=== PATIENT | female | born 1975 | race African-American/Black ===

== ENCOUNTER → 2017-01-25 | Outpatient (CLI) | payer MEDICAID ==
[2017-01-11 00:37] VITALS: BP 142/90
[2017-01-25 15:25] LABS: BASOPHILS % (AUTO) 0.9 % (0.2-1.0); EOSINOPHILS # (AUTO) 0.2 x10^3/uL (0.0-0.2); HEMATOCRIT 25.9 % (36.0-47.0); HEMOGLOBIN 7.9 g/dL (12.0-16.0); MEAN CORPUSCULAR HGB CONC 30.5 g/dL (33.0-35.0); MONOCYTES # (AUTO) 0.3 x10^3/uL (0.3-0.8); RED CELL DISTRIBUTION WIDTH 21.9 % (11.6-16.5)
[2017-01-25 15:29] LABS: BASOPHILS # (AUTO) 0.1 X10^3/uL (0.0-0.1); EOSINOPHILS % (AUTO) 3.1 % (0.9-2.9); MEAN CORPUSCULAR HEMOGLOBIN 21.5 pg (27.0-34.0); MEAN CORPUSCULAR VOLUME 70.4 fL (80.0-100.0); MEAN PLATELET VOLUME 7.9 fL (7.4-11.0); MONOCYTES % (AUTO) 6.1 % (0.0-13.0); NEUTROPHILS % (AUTO) 53.9 % (42.0-75.0); PLATELET COUNT 444 X10^3/uL (150.0-450.0); RED BLOOD COUNT 3.69 X10^6/uL (3.5-5.4); WHITE BLOOD COUNT 5.6 X10^3/uL (3.6-10.0)
--- NOTE | 2017-01-25 16:02 | RAD ---
HISTORY: Chronic bilateral hip pain Study: Bilateral hip radiographs Comparison: 03/03/2016 Findings: Normal alignment. No acute fracture or dislocation. The soft tissues are unremarkable. Multiple reno gical clips are again seen in the right pelvis. IMPRESSION: 1. Negative hip radiographs. Reported By:
[2017-01-25 16:22] LABS: HYPOCHROMASIA 2+; PLATELET MORPHOLOGY COMMENT NORMAL (NORMAL)
[2017-01-25 16:23] LABS: ANISOCYTOSIS 1+; MICROCYTOSIS 2+
--- NOTE | 2017-01-25 16:23 | RAD ---
HISTORY: Chronic back pain Study: Three views lumbar spine Comparison: None Findings: There is minimal levoscoliosis. Alignment is otherwise normal. Vertebral body heights are preserved . The disk spaces appear normal.No evidence for acute fracture or subluxation. IMPRESSION: 1. Minimal levoscoliosis, otherwise negative lumbar radiographs. Reported By:
[2017-01-25 17:10] LABS: ALANINE AMINOTRANSFERASE 18 Units/L (12-78); ALBUMIN 3.5 g/dL (3.4-5.0); ALKALINE PHOSPHATASE 79 Units/L (46-116); ASPARTATE AMINO TRANSFERASE 18 Units/L (15-37); BLOOD UREA NITROGEN 8 mg/dL (7-18); CALCIUM 8.6 mg/dL (8.5-10.1); CARBON DIOXIDE 24.8 mmol/L (21-32); CHLORIDE 106 mmol/L (98-107); CREATININE 0.54 mg/dL (0.55-1.02); GLUCOSE 92 mg/dL (65-99); SODIUM 143 mmol/L (136-145); T4 (THYROXINE) 4.9 ug/dL (4.7-13.3); TOTAL PROTEIN 7.9 g/dL (6.4-8.2); TSH (3RD GENERATION) 1.009 uIU/mL (0.358-3.74); eGFR BLACK RACES > 60 (>60); eGFR NON BLACK RACES > 60 (>60)
== END ==
LOC: LAB 14:46
PROVIDERS: ATTEND Internal Medicine
DX: M54.5 Low back pain (principal); M25.551 Pain in right hip; M25.552 Pain in left hip
CPT/HCPCS: 36415; 72100; 73521; 80053; 84436; 84443; 85025

== ENCOUNTER 2017-03-23 18:35 | Emergency (ER) | payer OTHER, MEDICAID ==
[2017-03-23 18:42] VITALS: BP 111/79; BMI 20.1
== END 2017-03-23 20:00 | disposition left against medical advice (07) ==
LOC: ER 18:49
DX: R10.84 Generalized abdominal pain (principal)
CPT/HCPCS: 99281

== ENCOUNTER 2017-04-25 23:26 | Inpatient (IN) | payer OTHER, MEDICAID ==
--- NOTE | 2017-04-26 00:10 | DR.GENAD ---
HPI - PCP Primary Care Physician: Jemma - Complaint/Symptoms Chief Complaint:: "Dr Vegas had me to get blood drawed. The lab told Dr Vegas how low it was and he told me to come to the ER now. Also, my back just started bothering me about an hour ago." - Source History Provided: Patient - Mode of Arrival Mode of Arrival: Ambulatory - Timing Onset of Chief Complaint: 04/25/17 PMH - PMH Past Medical History: Yes Past Medical History: Hypertension Past Medical History Comment: Pancriatitis Past Surgical History: Yes Surgical History: Hysterectomy - Family History History of Family Medical Conditions: Yes Family Medical History: Cancer, Hypertension - Social History Does patient currently use any type of tobacco product: Yes Have you used tobacco products in the last 12 months: Yes Type of Tobacco Use: Cigarettes Does any household member use tobacco: Yes Alcohol Use: None Do you use any recreational Drugs:: No Lives With: Family Lives Where: Home - infectious screening In the last 2 months have you had wt loss of >10#?: NO Have you had fever, night sweats or hemotysis?: No Have you traveled outside the country in the last 6 months?: No Isolation: Standard ROS - Review of Systems Constitutional: No Symptoms Reported Eyes: No Symptoms Reported ENTM: No Symptoms Reported Respiratoy: No Symptoms Reported Cardiovascular: No Symptoms Reported Gastrointestinal/Abdominal: No Symptoms Reported Genitourinary: No Symptoms Reported Neurological: No Symptoms Reported Musculoskeletal: Back Pain Integumentary: No Symptoms Reported Hematologic/Lymphatic: No Symptoms Reported Endocrine: No Symptoms Reported Psychiatric: No Symptoms Reported All Other Systems: Reviewed and Negative PE - Vital Signs Vitals: Temperature 98.4 F Pulse Rate 106 Respiratory Rate 20 Blood Pressure [Left Arm] 138/88 Blood Pressure [Right Arm] 132/79 Blood Pressure 142/82 O2 Sat by Pulse Oximetry 100 - General Limitations: No Limitations General Appearance: Alert, In No Apparent Distress - Head Head Exam: Normal Inspection, Atraumatic - ENT ENT Exam: Normal Exam, Normal Oropharynx External Ear Exam: Normal External Inspection TM/Canal Exam: Bilateral Normal Nose Exam: Normal Nose Exam Mouth Exam: Normal Inspection Throat Exam: Normal Inspection - Neck Neck Exam: Normal Inspection - Chest Chest Inspection: Normal Inspection - Respiratory Respiratory Exam: Normal Lung Sounds Bilat Respiratory Exam: Bilateral Clear to Auscultation - Cardiovascular Cardiovascular Exam: Regular Rate, Normal Rhythm - Abdominal Exam Abdominal Exam: Normal Inspection, Normal Bowel Sounds Abdominal Tenderness: negative: RUQ, RLQ, LUQ, LLQ, Epigastrium, Suprapubic, Diffuse, Mild, Moderate, Severe, Other - Extremities Extremities Exam: Normal Inspection, Full ROM - Back Back Exam: Normal Inspection, Tenderness (mid low back) - Neurologic Neurological Exam: Alert, Oriented X3, CN II-XII Intact - Psychiatric Psychiatric Exam: Normal Affect, Normal Mood - Skin Skin Exam: Warm, Dry Course - Reevaluation 1st: - Consultation Called: 00:09 (Dr Vegas advised to admit for transfusion) ROR - Labs Reviewed Laboratory Results Reviewed?: Yes (H/H 5.05/23) - XRAY XRAY Interpreted by: Radiologist - Diagnosis Discharge Problem: Anemia Qualifiers: Anemia type: unspecified type Qualified Code(s): D64.9 - Anemia, unspecified - Discharge Plan Condition: Stable - Follow ups/Referrals Follow ups/Referrals: Moris VEGAS [Primary Care Provider] - 3 days - Instructions
[2017-04-26] MEDS ORDERED: NS 500 ML IV 500 ML IV ONE (00:51)
[2017-04-26] MEDS ORDERED: TYLENOL 325 MG TAB PO PRN (00:51)
[2017-04-26] MEDS ORDERED: TYLENOL SUPP 650 MG PR PRN (00:51)
[2017-04-26] MEDS ORDERED: BENADRYL INJ 50 MG VIAL IVP PRN (00:51)
[2017-04-26] MEDS ORDERED: NS 250 ML IV 250 ML IV ONE (01:50)
[2017-04-26] MEDS: NORCO 5/325 MG TAB PO PRN ×3 (01:56→20:58)
[2017-04-26 03:01] VITALS: BMI 19.6
[2017-04-26] MEDS ORDERED: NS 1000 ML 1,000 ML ONE (04:58)
[2017-04-26] MEDS: NS 1000 ML 1,000 ML IV SCH ×4 (05:04→21:00)
[2017-04-26] MEDS ORDERED: MILK OF MAGNESIA PO PRN (09:43)
[2017-04-26 10:44] LABS: ALANINE AMINOTRANSFERASE 20 Units/L (12-78); ALBUMIN 3.1 g/dL (3.4-5.0); ALKALINE PHOSPHATASE 75 Units/L (46-116); ASPARTATE AMINO TRANSFERASE 14 Units/L (15-37); BLOOD UREA NITROGEN 8 mg/dL (7-18); CALCIUM 7.8 mg/dL (8.5-10.1); CHLORIDE 111 mmol/L (98-107); COR CA(FOR HYPOALB) 8.5 mg/dL (8.5-10.1); CREATININE 0.62 mg/dL (0.55-1.02); GLUCOSE 109 mg/dL (65-99); SODIUM 143 mmol/L (136-145); TOTAL PROTEIN 6.9 g/dL (6.4-8.2); eGFR BLACK RACES > 60 (>60); eGFR NON BLACK RACES > 60 (>60)
[2017-04-26 11:34] LABS: BASOPHILS # (AUTO) 0.1 X10^3/uL (0.0-0.1); EOSINOPHILS # (AUTO) 0.3 x10^3/uL (0.0-0.2); HEMATOCRIT 24.9 % (36.0-47.0); LYMPHOCYTES # (AUTO) 1.5 X10^3/uL (1.3-2.9); LYMPHOCYTES % (AUTO) 32.6 % (21.0-51.0); MEAN CORPUSCULAR HEMOGLOBIN 24.7 pg (27.0-34.0); MEAN CORPUSCULAR HGB CONC 32.2 g/dL (33.0-35.0); MEAN CORPUSCULAR VOLUME 76.8 fL (80.0-100.0); MEAN PLATELET VOLUME 8.1 fL (7.4-11.0); MONOCYTES # (AUTO) 0.3 x10^3/uL (0.3-0.8); MONOCYTES % (AUTO) 6.8 % (0.0-13.0); NEUTROPHILS # (AUTO) 2.5 x10^3/uL (2.2-4.8); NEUTROPHILS % (AUTO) 52.6 % (42.0-75.0); PLATELET COUNT 352 X10^3/uL (150.0-450.0); RED BLOOD COUNT 3.25 X10^6/uL (3.5-5.4); RED CELL DISTRIBUTION WIDTH 29.6 % (11.6-16.5); WHITE BLOOD COUNT 4.7 X10^3/uL (3.6-10.0)
[2017-04-26 12:24] LABS: BAND NEUTROPHILS % 5 % (0-10); PLATELET MORPHOLOGY COMMENT NORMAL (NORMAL)
[2017-04-26 12:25] LABS: ANISOCYTOSIS 3+; HYPOCHROMASIA 1+; MICROCYTOSIS 1+; POIKILOCYTOSIS 2+; POLYCHROMASIA SLIGHT
[2017-04-26] MEDS ORDERED: XANAX PO PRN (20:55)
[2017-04-26] MEDS ORDERED: COLACE CAP 100 MG PO SCH (21:00)
[2017-04-27 08:03] VITALS: BP 151/85
[2017-04-27] MEDS: NORCO 5/325 MG TAB PO PRN (10:57)
[2017-04-27] MEDS: NS 1000 ML 1,000 ML IV SCH (12:13)
== END 2017-04-27 11:11 | disposition home or self-care (01) | DRG 812 ==
LOC: ER 23:26 → ICU 04-26 00:45
PROVIDERS: ADMIT Internal Medicine; ATTEND Internal Medicine
PROC: 30233N1 Transfusion of Nonautologous Red Blood Cells into Peripheral Vein, Percutaneous Approach (ICD-10-PCS; principal; 2017-04-26)
PROC: 30233N1 Transfusion of Nonautologous Red Blood Cells into Peripheral Vein, Percutaneous Approach (ICD-10-PCS; 2017-04-26)
DX: D64.89 Other specified anemias (principal); I10 Essential (primary) hypertension; Z87.19 Personal history of other diseases of the digestive system
CPT/HCPCS: 36415; 71020; 80053; 82607; 82728; 82746; 83540; 84436; 84443; 84466; 85025; 86850; 86900; 86901; 86922; 96365; 99283; 99284; P9016; J1200

== ENCOUNTER → 2017-04-25 | Outpatient (CLI) | payer OTHER, MEDICAID ==
[2017-04-25 17:32] LABS: BASOPHILS # (AUTO) 0.1 X10^3/uL (0.0-0.1); BASOPHILS % (AUTO) 1.4 % (0.2-1.0); EOSINOPHILS # (AUTO) 0.1 x10^3/uL (0.0-0.2); EOSINOPHILS % (AUTO) 3.5 % (0.9-2.9); LYMPHOCYTES % (AUTO) 52.2 % (21.0-51.0); MEAN CORPUSCULAR HEMOGLOBIN 20.7 pg (27.0-34.0); MEAN CORPUSCULAR HGB CONC 29.8 g/dL (33.0-35.0); MEAN CORPUSCULAR VOLUME 69.6 fL (80.0-100.0); MEAN PLATELET VOLUME 7.4 fL (7.4-11.0); MONOCYTES # (AUTO) 0.3 x10^3/uL (0.3-0.8); MONOCYTES % (AUTO) 7.7 % (0.0-13.0); NEUTROPHILS # (AUTO) 1.4 x10^3/uL (2.2-4.8); NEUTROPHILS % (AUTO) 35.2 % (42.0-75.0); PLATELET COUNT 440 X10^3/uL (150.0-450.0); RED BLOOD COUNT 2.76 X10^6/uL (3.5-5.4); RED CELL DISTRIBUTION WIDTH 26.3 % (11.6-16.5); WHITE BLOOD COUNT 3.9 X10^3/uL (3.6-10.0)
[2017-04-25 17:39] LABS: HEMATOCRIT 19.2 % (36.0-47.0); HEMOGLOBIN 5.7 g/dL (12.0-16.0)
[2017-04-25 17:54] LABS: ALANINE AMINOTRANSFERASE 20 Units/L (12-78); ALBUMIN 3.5 g/dL (3.4-5.0); ALKALINE PHOSPHATASE 83 Units/L (46-116); ASPARTATE AMINO TRANSFERASE 15 Units/L (15-37); BLOOD UREA NITROGEN 10 mg/dL (7-18); CARBON DIOXIDE 24.6 mmol/L (21-32); CHLORIDE 109 mmol/L (98-107); CREATININE 0.62 mg/dL (0.55-1.02); GLUCOSE 110 mg/dL (65-99); SODIUM 144 mmol/L (136-145); T4 (THYROXINE) 4.2 ug/dL (4.7-13.3); TOTAL PROTEIN 7.6 g/dL (6.4-8.2); TSH (3RD GENERATION) 0.831 uIU/mL (0.358-3.74); eGFR BLACK RACES > 60 (>60); eGFR NON BLACK RACES > 60 (>60)
[2017-04-25 18:15] LABS: ANISOCYTOSIS 3+; HYPOCHROMASIA 2+; PLATELET MORPHOLOGY COMMENT NORMAL (NORMAL)
[2017-04-25 18:16] LABS: MICROCYTOSIS 1+; TEAR DROP CELLS PRESENT
[2017-04-25 18:17] LABS: IRON 14 ug/dL (50-175); TRANSFERRIN 334 mg/dL (202-364)
--- NOTE | 2017-04-26 07:15 | RAD ---
HISTORY: Anemia, hypertension Study: Chest two-view Comparison: December 10, 2015 Findings: The trachea is midline. The cardiac silhouette is unremarkable. The lungs are clear without focal infiltrate or effusion. The bony thorax is unremarkable. IMPRESSION: 1. No acute cardiopulmonary disease. Reported By:
== END | disposition home or self-care (01) | DRG 812 ==
LOC: LAB 17:12
PROVIDERS: ATTEND Internal Medicine
DX: D64.9 Anemia, unspecified (principal); I10 Essential (primary) hypertension; E04.8 Other specified nontoxic goiter
CPT/HCPCS: 36415; 71020; 80053; 82607; 82728; 82746; 83540; 84436; 84443; 84466; 85025

== ENCOUNTER 2017-08-29 18:34 | Inpatient (IN) | payer OTHER, MEDICAID ==
[2017-08-29 18:38] VITALS: BMI 19.2
--- NOTE | 2017-08-29 19:35 | DR.GENAD ---
HPI - PCP Primary Care Physician: yoli - Complaint/Symptoms Chief Complaint Doctors Comments: Patient presented with complain of left knee for two days. She also states that her pancreatitis is acting up. She denies fever or vomiting. Chief Complaint:: "left knee hurting and my back since yesterday" - Source History Provided: Patient - Mode of Arrival Mode of Arrival: Ambulatory - Timing Onset of Chief Complaint: 08/28/17 PMH - PMH Past Medical History: Yes Past Medical History: Hypertension Past Surgical History: Yes Surgical History: Hysterectomy - Family History History of Family Medical Conditions: Yes Family Medical History: Diabetes Mellitus, Cancer, Hypertension - Social History Does patient currently use any type of tobacco product: Yes Have you used tobacco products in the last 12 months: Yes Type of Tobacco Use: Cigarettes How many years tobacco product used: 5 Does any household member use tobacco: No Alcohol Use: None Do you use any recreational Drugs:: No Lives With: Family Lives Where: Home - infectious screening In the last 2 months have you had wt loss of >10#?: NO Have you had fever, night sweats or hemotysis?: No Have you traveled outside the country in the last 6 months?: No Isolation: Standard ROS - Review of Systems Eyes: No Symptoms Reported ENTM: No Symptoms Reported Respiratoy: No Symptoms Reported Cardiovascular: No Symptoms Reported Gastrointestinal/Abdominal: No Symptoms Reported Genitourinary: No Symptoms Reported Neurological: No Symptoms Reported Musculoskeletal: Leg (proximal tibia with area of cellulitis tender centrally.) PE - Vital Signs Vitals: Temperature 98.5 F Pulse Rate [Left Brachial] 92 Pulse Rate 108 Respiratory Rate 16 Blood Pressure [Left Arm] 138/88 Blood Pressure [Right Arm] 122/76 Blood Pressure 130/77 O2 Sat by Pulse Oximetry 99 Course - Consultation Called: 20:45 (Dr Damian agreed to admit for transfusion) ROR - Labs Reviewed Result Diagrams: 08/29/17 19:52 08/29/17 19:52 Laboratory: WBC 6.2 X10^3/uL (3.6-10.0) 08/29/17 19:52 RBC 2.08 X10^6/uL (3.5-5.4) L 08/29/17 19:52 Hgb 4.3 g/dL (12.0-16.0) L* 08/29/17 19:52 Hct 14.1 % (36.0-47.0) L* 08/29/17 19:52 MCV 67.8 fL (80.0-100.0) L 08/29/17 19:52 MCH 20.9 pg (27.0-34.0) L 08/29/17 19:52 MCHC 30.8 g/dL (33.0-35.0) L 08/29/17 19:52 RDW 30.2 % (11.6-16.5) H 08/29/17 19:52 Plt Count 24 X10^3/uL (150.0-450.0) L 08/29/17 19:52 Plt Count Comment Decreased (ADEQUATE) A 08/29/17 19:52 MPV 6.5 fL (7.4-11.0) L 08/29/17 19:52 Neut % 55.0 % (42.0-75.0) 08/29/17 19:52 Lymph % 35.7 % (21.0-51.0) 08/29/17 19:52 [place] % 5.8 % (0.0-13.0) 08/29/17 19:52 Eos % 1.3 % (0.9-2.9) 08/29/17 19:52 Baso % 2.2 % (0.2-1.0) H 08/29/17 19:52 Neut # 3.4 x10^3/uL (2.2-4.8) 08/29/17 19:52 Lymph # 2.2 X10^3/uL (1.3-2.9) 08/29/17 19:52 [place] # 0.4 x10^3/uL (0.3-0.8) 08/29/17 19:52 Eos # 0.1 x10^3/uL (0.0-0.2) 08/29/17 19:52 Baso # 0.1 X10^3/uL (0.0-0.1) 08/29/17 19:52 Absolute Nucleated RBC 0.2 /100WBC 08/29/17 19:52 Total Counted 100 08/29/17 19:52 Neutrophils % (Manual) 75 % (39-76) 08/29/17 19:52 Band Neutrophils % 0 % (0-10) 08/29/17 19:52 Lymphocytes % (Manual) 19 % (13-43) 08/29/17 19:52 Monocytes % (Manual) 4 % (4-9) 08/29/17 19:52 Eosinophils % (Manual) 2 % (0-6) 08/29/17 19:52 Plt Morphology Comment Normal (NORMAL) 08/29/17 19:52 RBC Morphology Abnormal (NORMAL) A 08/29/17 19:52 Hypochromasia 3+ A 08/29/17 19:52 Poikilocytosis 1+ A 08/29/17 19:52 Anisocytosis 2+ A 08/29/17 19:52 Microcytosis 2+ A 08/29/17 19:52 Target Cells Noted 08/29/17 19:52 Tear Drop Cells Noted 08/29/17 19:52 Sodium 139 mmol/L (136-145) 08/29/17 19:52 Corrected Sodium TNP 08/29/17 19:52 Potassium 3.9 mmol/L (3.5-5.1) 08/29/17 19:52 Chloride 107 mmol/L (98-107) 08/29/17 19:52 Carbon Dioxide 23.8 mmol/L (21-32) 08/29/17 19:52 BUN 10 mg/dL (7-18) 08/29/17 19:52 Creatinine 0.68 mg/dL (0.55-1.02) 08/29/17 19:52 Est GFR (MDRD) Af Amer > 60 (>60) 08/29/17 19:52 Est GFR (MDRD) Non-Af > 60 (>60) 08/29/17 19:52 Glucose 102 mg/dL (65-99) H 08/29/17 19:52 Calcium 8.5 mg/dL (8.5-10.1) 08/29/17 19:52 Corrected Calcium 9.2 mg/dL (8.5-10.1) 08/29/17 19:52 Total Bilirubin 0.10 mg/dL (0.2-1.0) L 08/29/17 19:52 AST 17 Units/L (15-37) 08/29/17 19:52 ALT 17 Units/L (12-78) 08/29/17 19:52 Alkaline Phosphatase 111 Units/L (46-116) 08/29/17 19:52 C-Reactive Protein 15.30 mg/L (0-3.0) H 08/29/17 19:52 Total Protein 7.5 g/dL (6.4-8.2) 08/29/17 19:52 Albumin 3.1 g/dL (3.4-5.0) L 08/29/17 19:52 Globulin 4.4 g/dL (2.5-4.5) 08/29/17 19:52 Albumin/Globulin Ratio 0.7 Ratio (1.1-2.1) L 08/29/17 19:52 Amylase 100 Units/L (25-115) 08/29/17 19:52 Lipase 278 Units/L (73-393) 08/29/17 19:52 Specimen Type Clean catch urine 08/29/17 19:52 Urine Color Yellow (YELLOW) 08/29/17 19:52 Urine Appearance Clear (CLEAR) 08/29/17 19:52 Urine pH 7.0 (5.0 - 8.0) 08/29/17 19:52 Ur Specific [place] 1.005 (1.000-1.030) 08/29/17 19:52 Urine Protein Negative (NEGATIVE) 08/29/17 19:52 Urine Glucose (UA) Negative (NEGATIVE) 08/29/17 19:52 Urine Ketones Negative (NEGATIVE) 08/29/17 19:52 Urine Occult Blood Negative (NEGATIVE) 08/29/17 19:52 Urine Nitrite Negative (NEGATIVE) 08/29/17 19:52 Urine Bilirubin Negative (NEGATIVE) 08/29/17 19:52 Urine Urobilinogen Normal (NORMAL) 08/29/17 19:52 Ur Leukocyte Esterase Negative (NEGATIVE) 08/29/17 19:52 Urine RBC 0-2 /HPF (NEGATIVE) 08/29/17 19:52 Urine WBC 0-2 /HPF (NEGATIVE) 08/29/17 19:52 Ur Squamous Epith Cells Rare /HPF (NEGATIVE) 08/29/17 19:52 Urine Bacteria Trace /HPF (NEGATIVE) 08/29/17 19:52 Ur Culture Indicated? No/not indicated 08/29/17 19:52 - Diagnosis Discharge Problem: left tibia cellulitis Anemia Qualifiers: Anemia type: unspecified type Qualified Code(s): D64.9 - Anemia, unspecified - Discharge Plan Condition: Stable - Follow ups/Referrals Follow ups/Referrals: Moris VEGAS [Primary Care Provider] - 3 days - Instructions
[2017-08-29] MEDS ORDERED: NS 1000 ML 1,000 ML IV ONE (19:38)
[2017-08-29] MEDS ORDERED: NS 1000 ML 1,000 ML ONE (20:00)
[2017-08-29 20:03] LABS: BASOPHILS # (AUTO) 0.1 X10^3/uL (0.0-0.1); BASOPHILS % (AUTO) 2.2 % (0.2-1.0); BILIRUBIN,URINE NEGATIVE (NEGATIVE); BLOOD/HEMOGLOBIN,URINE NEGATIVE (NEGATIVE); EOSINOPHILS # (AUTO) 0.1 x10^3/uL (0.0-0.2); EOSINOPHILS % (AUTO) 1.3 % (0.9-2.9); GLUCOSE, URINE NEGATIVE (NEGATIVE); KETONES,URINE NEGATIVE (NEGATIVE); LEUKOCYTE ESTERASE ,URINE NEGATIVE (NEGATIVE); LYMPHOCYTES # (AUTO) 2.2 X10^3/uL (1.3-2.9); LYMPHOCYTES % (AUTO) 35.7 % (21.0-51.0); MEAN CORPUSCULAR HEMOGLOBIN 20.9 pg (27.0-34.0); MEAN CORPUSCULAR HGB CONC 30.8 g/dL (33.0-35.0); MEAN CORPUSCULAR VOLUME 67.8 fL (80.0-100.0); MEAN PLATELET VOLUME 6.5 fL (7.4-11.0); MONOCYTES # (AUTO) 0.4 x10^3/uL (0.3-0.8); MONOCYTES % (AUTO) 5.8 % (0.0-13.0); NEUTROPHILS # (AUTO) 3.4 x10^3/uL (2.2-4.8); NITRITES,URINE NEGATIVE (NEGATIVE); PLATELET COUNT 24 X10^3/uL (150.0-450.0); PROTEIN,URINE NEGATIVE (NEGATIVE); RED BLOOD COUNT 2.08 X10^6/uL (3.5-5.4); RED CELL DISTRIBUTION WIDTH 30.2 % (11.6-16.5); UROBILINOGEN,URINE NORMAL (NORMAL); WHITE BLOOD COUNT 6.2 X10^3/uL (3.6-10.0)
[2017-08-29 20:10] LABS: APPEARANCE,URINE CLEAR (CLEAR); COLOR,URINE YELLOW (YELLOW); RBC,URINE 0-2 /HPF (NEGATIVE); SQUAMOUS EPITHELIAL CELL,UR RARE /HPF (NEGATIVE)
[2017-08-29 20:11] LABS: BACTERIA,URINE TRACE /HPF (NEGATIVE)
[2017-08-29 20:15] LABS: HEMATOCRIT 14.1 % (36.0-47.0); HEMOGLOBIN 4.3 g/dL (12.0-16.0)
[2017-08-29 20:33] LABS: ALANINE AMINOTRANSFERASE 17 Units/L (12-78); ALBUMIN 3.1 g/dL (3.4-5.0); ALKALINE PHOSPHATASE 111 Units/L (46-116); AMYLASE 100 Units/L (25-115); ASPARTATE AMINO TRANSFERASE 17 Units/L (15-37); BLOOD UREA NITROGEN 10 mg/dL (7-18); CALCIUM 8.5 mg/dL (8.5-10.1); CARBON DIOXIDE 23.8 mmol/L (21-32); CHLORIDE 107 mmol/L (98-107); COR CA(FOR HYPOALB) 9.2 mg/dL (8.5-10.1); CREATININE 0.68 mg/dL (0.55-1.02); LIPASE 278 Units/L (73-393); SODIUM 139 mmol/L (136-145); TOTAL PROTEIN 7.5 g/dL (6.4-8.2); eGFR BLACK RACES > 60 (>60); eGFR NON BLACK RACES > 60 (>60)
[2017-08-29] MEDS ORDERED: PHENERGAN INJ 25 MG IV ONE (20:38)
[2017-08-29] MEDS ORDERED: DEMEROL INJ IVP ONE (20:38)
[2017-08-29] MEDS ORDERED: CLEOCIN VIAL 600 MG IV ONE (20:38)
[2017-08-29 20:39] LABS: HYPOCHROMASIA 3+; PLATELET MORPHOLOGY COMMENT NORMAL (NORMAL)
[2017-08-29 20:40] LABS: ANISOCYTOSIS 2+; MICROCYTOSIS 2+; POIKILOCYTOSIS 1+
[2017-08-29 20:43] LABS: BAND NEUTROPHILS % 0 % (0-10)
[2017-08-29] MEDS ORDERED: PHENERGAN INJ 25 MG ONE (20:43)
[2017-08-29 20:44] LABS: TARGET CELLS NOTED; TEAR DROP CELLS NOTED
[2017-08-29] MEDS ORDERED: DEMEROL INJ ONE (20:44)
[2017-08-29] MEDS ORDERED: CLEOCIN VIAL 600 MG ONE (20:44)
[2017-08-29] MEDS ORDERED: NS 100 ML IV 100 ML IV ONE (20:45)
[2017-08-29] MEDS ORDERED: NEOSPORIN OINT ONE (20:55)
[2017-08-29] MEDS ORDERED: NS 500 ML IV 500 ML IV ONE (21:25)
[2017-08-29] MEDS ORDERED: NS 250 ML IV 250 ML IV ONE (21:25)
[2017-08-29] MEDS ORDERED: ZOFRAN INJ 4 MG VIAL IVP PRN (22:04)
[2017-08-29] MEDS: NICOTINE PATCH TD SCH (23:17)
[2017-08-29] MEDS ORDERED: BENADRYL INJ 50 MG VIAL IV ONE (23:29)
[2017-08-29] MEDS ORDERED: TYLENOL 325 MG TAB PO ONE ×2 (23:30→23:32)
[2017-08-29] MEDS ORDERED: BENADRYL INJ 50 MG VIAL ONE (23:32)
[2017-08-30] MEDS ORDERED: SOLU-Medrol 125 MG VIAL IVP ONE (01:57)
[2017-08-30 02:49] LABS: BILIRUBIN,URINE NEGATIVE (NEGATIVE); BLOOD/HEMOGLOBIN,URINE NEGATIVE (NEGATIVE); GLUCOSE, URINE NEGATIVE (NEGATIVE); KETONES,URINE NEGATIVE (NEGATIVE); LEUKOCYTE ESTERASE ,URINE NEGATIVE (NEGATIVE); NITRITES,URINE NEGATIVE (NEGATIVE); PROTEIN,URINE NEGATIVE (NEGATIVE); UROBILINOGEN,URINE NORMAL (NORMAL)
[2017-08-30 03:00] LABS: APPEARANCE,URINE CLEAR (CLEAR); BACTERIA,URINE NEGATIVE /HPF (NEGATIVE); COLOR,URINE PALE YELLOW (YELLOW); RBC,URINE 0-3 /HPF (NEGATIVE); SQUAMOUS EPITHELIAL CELL,UR RARE /HPF (NEGATIVE)
[2017-08-30] MEDS: DEMEROL INJ IVP PRN ×2 (05:11→11:20)
[2017-08-30] MEDS: CLEOCIN VIAL 600 MG 150 MG in D5W 50 ML IV 50 ML IV SCH ×2 (05:14→05:48)
[2017-08-30] MEDS ORDERED: CLEOCIN 300 MG IV PREMIX 300 MG/50 ML BAG IV ONE (05:32)
[2017-08-30 06:48] LABS: HEMATOCRIT 23.6 % (36.0-47.0)
[2017-08-30 06:50] LABS: HEMOGLOBIN 7.6 g/dL (12.0-16.0)
--- NOTE | 2017-08-30 09:16 | RAD ---
HISTORY: Epigastric pain, GERD. Study: Acute abdominal series Comparison: 03/03/2016 Findings: The trachea is midline. The cardiac silhouette is unremarkable. The lungs are hyperinflated with in creased interstitial markings. In the appropriate clinical setting, findings may indicate COPD. An ac [place] process is not identified. The bony thorax is unremarkable. Flat plate and upright evaluation of the abdomen demonstrates a large amount of stool present within the right colon. No bowel obstruction or perforation is seen. There is no evidence of free intraperit sims air or fluid. Surgical clips are present in the right lower abdominal quadrant, likely from beatriz endectomy.. No pathological soft tissue mass or calcification can be observed. The bony structures are grossly intact. IMPRESSION: 1. No acute cardiopulmonary disease. There are changes of COPD present. 2. No evidence for acute abdominal pathology identified. Reported By:
[2017-08-30] MEDS ORDERED: BENADRYL CAP/TAB 25 MG PO ONE (09:21)
[2017-08-30] MEDS: NICOTINE PATCH TD SCH (09:28)
[2017-08-30] MEDS: PROTONIX INJ 40 MG VIAL IVP SCH (09:28)
[2017-08-30] MEDS: CHECK PATCH XX SCH ×2 (09:29→21:50)
[2017-08-30] MEDS: CLEOCIN 600 MG IV PREMIX 600 MG/50 ML BAG IV SCH ×3 (10:24→21:50)
[2017-08-30] MEDS ORDERED: PHENERGAN TAB 25 MG PO PRN (10:43)
[2017-08-30] MEDS ORDERED: AMBIEN PO PRN (10:43)
[2017-08-30] MEDS ORDERED: PATIENT'S HOME MEDICATION (Lisinopril [Lisinopril] 20 MG) PO SCH (10:45)
[2017-08-30] MEDS ORDERED: PATIENT'S HOME MEDICATION (Ranitidine Hcl [Zantac] 300 MG) PO SCH (10:45)
[2017-08-30] MEDS ORDERED: ZESTRIL TAB 20 MG ONE (11:16)
[2017-08-30] MEDS: NORVASC TAB 5 MG PO SCH (11:19)
[2017-08-30] MEDS: ZESTRIL TAB 20 MG PO SCH (11:19)
[2017-08-30] MEDS: NEURONTIN CAP 400 MG PO SCH ×2 (11:19→21:49)
[2017-08-30] MEDS: PriLOSEC PO SCH (11:19)
[2017-08-30] MEDS: MICRO K EXTEN CAP 10 MEQ PO SCH (11:19)
[2017-08-30] MEDS ORDERED: BENADRYL INJ 50 MG VIAL IV ONE (11:26)
[2017-08-30] MEDS ORDERED: SOLU-Medrol 40 MG VIAL IVP ONE ×2 (11:26→13:00)
[2017-08-30] MEDS ORDERED: NS 250 ML IV 250 ML IV ONE ×2 (11:28→15:14)
[2017-08-30] MEDS ORDERED: TYLENOL 325 MG TAB PO ONE (12:36)
[2017-08-30] MEDS ORDERED: TYLENOL 325 MG TAB PO NR (12:45)
[2017-08-30] MEDS ORDERED: BENADRYL INJ 50 MG VIAL IVP ONE ×2 (13:00→20:24)
--- NOTE | 2017-08-30 13:38 | DR.H&P ---
H&P - History & Physical for Day of: H&P Date: 08/29/17 - Allergies Allergies/Adverse Reactions: Allergies Allergy/AdvReac Type Severity Reaction Status Date / Time hydromorphone [From Dilaudid] Allergy Verified 08/29/17 19:17 morphine Allergy Verified 08/29/17 19:17 - Past Medical History Past Medical History: Hypertension Additional Medical History: Hiatal Hernia, Chronic Pancreatitis - Past Surgical History Surgical History: Hysterectomy Additional Surgical History: Hernia Repair - Family History Family Medical History: Diabetes Mellitus, Cancer, Hypertension - Social History Does patient currently use any type of tobacco product: Yes Have you used tobacco products in the last 12 months: Yes Type of Tobacco Use: Cigarettes How many years tobacco product used: 20 Does any household member use tobacco: No Alcohol Use: None Drug Use: None - Medications Home Medications: Zolpidem Tartrate [Ambien] 10 mg PO HS PRN 08/29/17 [History Confirmed 08/29/17] - Physical Exam Vital Signs: Temperature 98.2 F Pulse Rate [Left Brachial] 82 Pulse Rate 108 Respiratory Rate 18 Blood Pressure [Left Arm] 138/88 Blood Pressure [Right Arm] 166/78 Blood Pressure 130/77 O2 Sat by Pulse Oximetry 99
[2017-08-30] MEDS: XANAX PO PRN (14:56)
[2017-08-30] MEDS: NORCO 10/325 TAB PO PRN (14:56)
[2017-08-30] MEDS ORDERED: PERCOCET TAB 5/325 MG PO ONE (18:28)
--- NOTE | 2017-08-30 18:48 | DR.CONSULT ---
Consult - Consultation for Day of: Date: 08/30/17 - Chief Complaint Chief Complaint: Patient with complaints of weakness, dyspepsia, some dysphagia , nausea, vomiting, melena and hematochezia - Allergies Allergies/Adverse Reactions: Allergies Allergy/AdvReac Type Severity Reaction Status Date / Time hydromorphone [From Dilaudid] Allergy Verified 08/29/17 19:17 morphine Allergy Verified 08/29/17 19:17 - History of Present Illness History of Present Illness: Patient is a 41yo female who was referred for GI Bleed. Patient has complaints of dysphagia, dyspepsia, she had some nausea and vomiting over the weekend, melena that started 2 days ago and 1 episode of hematochezia. Patient Hgb on arrival was 4.3 she hd 2 units of PRBC and Hgb has came up 7.6 and patient is now recieving her 4th unit of PRBC. Patient last EGD was 09/2016 which showed a gastric body ulcer with small blood vessel and heater probe coagulation was performed, surgical changes consistent with billroth II surgery, and bile gastritis. Patient takes prilosec 20mg daily and carafate 1gm daily. - Past Medical History Past Medical History: Hypertension Additional Medical History: Hiatal Hernia, Chronic Pancreatitis - Past Surgical History Surgical History: Hysterectomy Additional Surgical History: Hernia Repair - Family History Family Medical History: Diabetes Mellitus, Cancer, Hypertension - Social History Does patient currently use any type of tobacco product: Yes Have you used tobacco products in the last 12 months: Yes Type of Tobacco Use: Cigarettes How many years tobacco product used: 20 Does any household member use tobacco: No Alcohol Use: None Drug Use: None - Medications Home Medications: Zolpidem Tartrate [Ambien] 10 mg PO HS PRN 08/29/17 [History Confirmed 08/29/17] - Review of Systems Constitutional: Weakness Eyes: No Symptoms Reported ENT: No Symptoms Reported Respiratory: No Symptoms Reported Cardiovascular: No Symptoms Reported Gastrointestinal: See HPI, Nausea, Vomiting, Melena, Hematochezia. denies: Abdominal Pain, Diarrhea, Constipation Genitourinary: No Symptoms Reported Musculoskeletal: No Symptoms Reported Skin: No Symptoms Reported Neurological: No Symptoms Reported - Physical Exam Vital Signs: Temperature 98.7 F Pulse Rate [Right Brachial] 87 Pulse Rate [Left Brachial] 82 Pulse Rate 108 Respiratory Rate 20 Blood Pressure [Left Arm] 138/88 Blood Pressure [Right Arm] 172/94 Blood Pressure 130/77 O2 Sat by Pulse Oximetry 97 Oriented: Normal Eyes: Normal Ear: Normal Nose: Normal Throat: Normal Respiratory: Clear Throughout Cardiovascular: Normal : Normal Auscultation: Bowel Sounds: Normal Palpation: Normal Tenderness: Normal Skin: Normal Musculoskeletal: Normal Psychiatric: Normal Mood Description: Calm Affect: Normal Speech Pattern: Clear - Plan Plan: Assessment. 1. Anemia r/o gastric ulcer. 2. GERD. 3. Chronic pancreatitis. Plan. 1. Monitor Hgb transfuse as needed, will need endoscopic work can be done as outpatient, if patient is still in hospital will do sunday if patient discharged will plan for as outpatient on . 2. Protonix 40mg IV
[2017-08-30] MEDS ORDERED: ZANAFLEX PO SCH (21:00)
[2017-08-30 21:12] LABS: HEMATOCRIT 29.1 % (36.0-47.0); HEMOGLOBIN 9.5 g/dL (12.0-16.0)
[2017-08-31] MEDS: XANAX PO PRN (03:08)
[2017-08-31] MEDS: DEMEROL INJ IVP PRN ×2 (03:17→10:41)
[2017-08-31] MEDS: CLEOCIN 600 MG IV PREMIX 600 MG/50 ML BAG IV SCH ×2 (05:49→13:47)
[2017-08-31 06:14] LABS: BASOPHILS # (AUTO) 0.1 X10^3/uL (0.0-0.1); BASOPHILS % (AUTO) 0.3 % (0.2-1.0); EOSINOPHILS % (AUTO) 0.2 % (0.9-2.9); HEMOGLOBIN 9.3 g/dL (12.0-16.0); LYMPHOCYTES # (AUTO) 3.2 X10^3/uL (1.3-2.9); LYMPHOCYTES % (AUTO) 19.6 % (21.0-51.0); MEAN CORPUSCULAR HEMOGLOBIN 25.3 pg (27.0-34.0); MEAN CORPUSCULAR HGB CONC 33.3 g/dL (33.0-35.0); MEAN PLATELET VOLUME 8.3 fL (7.4-11.0); MONOCYTES # (AUTO) 1.1 x10^3/uL (0.3-0.8); MONOCYTES % (AUTO) 6.5 % (0.0-13.0); NEUTROPHILS # (AUTO) 11.9 x10^3/uL (2.2-4.8); NEUTROPHILS % (AUTO) 73.4 % (42.0-75.0); PLATELET COUNT 31 X10^3/uL (150.0-450.0); RED BLOOD COUNT 3.69 X10^6/uL (3.5-5.4); RED CELL DISTRIBUTION WIDTH 28.1 % (11.6-16.5); WHITE BLOOD COUNT 16.2 X10^3/uL (3.6-10.0)
[2017-08-31 06:48] LABS: ALANINE AMINOTRANSFERASE 19 Units/L (12-78); ALBUMIN 3.2 g/dL (3.4-5.0); ALKALINE PHOSPHATASE 114 Units/L (46-116); ASPARTATE AMINO TRANSFERASE 22 Units/L (15-37); BLOOD UREA NITROGEN 10 mg/dL (7-18); CALCIUM 8.4 mg/dL (8.5-10.1); CARBON DIOXIDE 22.7 mmol/L (21-32); CHLORIDE 104 mmol/L (98-107); COR NA(FOR HYPERGLY) 138 mmol/L (136-145); CREATININE 0.67 mg/dL (0.55-1.02); SODIUM 138 mmol/L (136-145); TOTAL PROTEIN 7.9 g/dL (6.4-8.2); eGFR BLACK RACES > 60 (>60); eGFR NON BLACK RACES > 60 (>60)
[2017-08-31 07:01] LABS: PLATELET MORPHOLOGY COMMENT NORMAL (NORMAL); POIKILOCYTOSIS SLIGHT
[2017-08-31 07:02] LABS: ANISOCYTOSIS 3+; HYPOCHROMASIA SLIGHT; MICROCYTOSIS SLIGHT
[2017-08-31] MEDS ORDERED: ZESTRIL TAB 20 MG ONE (07:56)
[2017-08-31] MEDS ORDERED: NS 1000 ML 1,000 ML ONE (07:57)
[2017-08-31] MEDS: PROTONIX INJ 40 MG VIAL IVP SCH (08:30)
[2017-08-31] MEDS: CHECK PATCH XX SCH (08:30)
[2017-08-31] MEDS: MICRO K EXTEN CAP 10 MEQ PO SCH (08:30)
[2017-08-31] MEDS: PriLOSEC PO SCH (08:30)
[2017-08-31] MEDS: NEURONTIN CAP 400 MG PO SCH (08:30)
[2017-08-31] MEDS: ZESTRIL TAB 20 MG PO SCH (08:30)
[2017-08-31] MEDS: NICOTINE PATCH TD SCH (08:49)
[2017-08-31] MEDS: NORVASC TAB 5 MG PO SCH (08:49)
[2017-08-31] MEDS ORDERED: ZANTAC PO SCH (09:00)
[2017-08-31 11:37] VITALS: BP 151/80
[2017-08-31] MEDS: NORCO 10/325 TAB PO PRN (12:48)
== END 2017-08-31 14:25 | disposition home or self-care (01) | DRG 603 ==
LOC: ER 19:05 → OBSVTOIN 21:21 → OBS 21:21 → MED/SURG 08-30 11:04
PROVIDERS: ADMIT Internal Medicine; ATTEND Internal Medicine
PROC: 30233N1 Transfusion of Nonautologous Red Blood Cells into Peripheral Vein, Percutaneous Approach (ICD-10-PCS; principal; 2017-08-29)
PROC: 30233N1 Transfusion of Nonautologous Red Blood Cells into Peripheral Vein, Percutaneous Approach (ICD-10-PCS; 2017-08-30)
DX: L03.116 Cellulitis of left lower limb (principal); K86.1 Other chronic pancreatitis; K92.1 Melena; B95.62 Methicillin resistant Staphylococcus aureus infection as the cause of diseases classified elsewhere; D64.9 Anemia, unspecified; R10.13 Epigastric pain; I10 Essential (primary) hypertension; K21.9 Gastro-esophageal reflux disease without esophagitis; M19.90 Unspecified osteoarthritis, unspecified site; R13.10 Dysphagia, unspecified
CPT/HCPCS: 36415; 36430; 74022; 80053; 81001; 82150; 82607; 82728; 82746; 83540; 83690; 84466; 85014; 85018; 85025; 86140; 86850; 86900; 86901; 86922; 87070; 87075; 87186; 87205; 93005; 93010; 94760; 96365; 96374; 96375; 99284; A4222; C9113; P9016; Q0169; S0077; J0077; J1200; J2175; J2405; J2550; J2920; J2930

== ENCOUNTER 2017-09-13 12:28 | Day surgery (SDC) | payer OTHER, MEDICAID ==
[~2017-09-13 12:28] MED LIST: D5 LR 1000 ML 1,000 ML IV ONE
[2017-09-13] MEDS ORDERED: FENTANYL INJ 100 mcg ONE (13:23)
[2017-09-13] MEDS ORDERED: DIPRIVAN VIAL 20 ML ONE (13:23)
[2017-09-13 13:56] VITALS: BP 155/90
== END 2017-09-13 14:03 | disposition home or self-care (01) ==
LOC: SURG1 12:28
PROVIDERS: ATTEND Internal Medicine Gastroenterology
PROC: 0DB88ZX Excision of Small Intestine, Via Natural or Artificial Opening Endoscopic, Diagnostic (ICD-10-PCS; principal; 2017-09-13 19:45)
PROC: 0DJ08ZZ Inspection of Upper Intestinal Tract, Via Natural or Artificial Opening Endoscopic (ICD-10-PCS; principal; 2017-09-13 19:45)
DX: R13.19 Other dysphagia (principal); R11.2 Nausea with vomiting, unspecified; K92.2 Gastrointestinal hemorrhage, unspecified; D50.8 Other iron deficiency anemias; K92.1 Melena; K20.8 Other esophagitis
CPT/HCPCS: A4217; J3010; J3490; J7120

== ENCOUNTER 2017-09-17 23:15 | Emergency (ER) | payer OTHER, MEDICAID ==
--- NOTE | 2017-09-17 23:23 | DR.GENAD ---
HPI - HPI Comment HPI Comment: HISTORY PACREATITIS. PAIN SIMILAR TO THOSE DUE TO PACREATITIS EXACERBATION. NO FEVER. FEW WEEKS AGO IN HOSPITAL FOR 4 BINT BLOOD TRANSFUDION. WEAK AND DRAIN OF ENERGY CURRENTLY. NO FEVER OR DYSURIA. ABDOMINAL PAIN RADIATES TO THE BACK. SEVERAL EPISODES OF VOMITING REPORTED. - Complaint/Symptoms Chief Complaint Doctors Comments: ABDOMINAL PAIN, NAUSEA AND VOMITING TIMES SEVERAL HOURS. - Nurses notes reviewed Nurses Notes Review: Yes - Source History Provided: Patient - Mode of Arrival Mode of Arrival: Ambulatory - Timing Came on: Suddenly - Duration Duration: Constant Duration: Days - Severity Severity: Moderate PMH - PMH Past Medical History: Hypertension Past Surgical History: Yes Surgical History: Hysterectomy - Family History Family Medical History: Diabetes Mellitus, Cancer, Hypertension - Social History Do you use any recreational Drugs:: No ROS - Review of Systems Constitutional: Weakness, Fatigue, Loss of Appetite. negative: Chills, Fever Eyes: No Symptoms Reported. negative: Eye Pain, Discharge ENTM: No Symptoms Reported. negative: Ear Discharge, Nose Discharge, Nose Congestion, Throat Pain Respiratoy: No Symptoms Reported. negative: Productive Cough, Non-Productive Cough, Short of Breath, Wheezing, Hemoptysis Cardiovascular: No Symptoms Reported. negative: Chest Pain, Edema Gastrointestinal/Abdominal: No Symptoms Reported, Abdominal Pain, Nausea, Vomiting. negative: Diarrhea Genitourinary: No Symptoms Reported. negative: Dysuria, Frequency, Hematuria Neurological: No Symptoms Reported, Weakness. negative: Headache, Dizziness Musculoskeletal: No Symptoms Reported Integumentary: No Symptoms Reported Hematologic/Lymphatic: No Symptoms Reported Endocrine: No Symptoms Reported All Other Systems: Reviewed and Negative PE - Vital Signs Vitals: Temperature 98.7 F Pulse Rate [Left Brachial] 80 Pulse Rate 93 Respiratory Rate 18 Blood Pressure [Left Arm] 154/93 Blood Pressure [Right Arm] 185/109 Blood Pressure 202/114 O2 Sat by Pulse Oximetry 100 - General Limitations: No Limitations General Appearance: Alert - Head Head Exam: Normal Inspection - Eyes Eye exam: Normal Appearance - ENT ENT Exam: Normal External Ear Exam External Ear Exam: Normal External Inspection TM/Canal Exam: Bilateral Normal Nose Exam: Normal Nose Exam Mouth Exam: Normal Inspection Throat Exam: Normal Inspection - Neck Neck Exam: Trachea Midline - Chest Chest Inspection: Symmetric Chest Wall Rise - Respiratory Respiratory Exam: Normal Lung Sounds Bilat Respiratory Exam: Bilateral Clear to Auscultation - Cardiovascular Cardiovascular Exam: Regular Rate, Normal Rhythm, Normal Heart Sounds - Abdominal Exam Abdominal Exam: Normal Bowel Sounds, Soft, Tenderness Abdominal Tenderness: Diffuse, Moderate - Extremities Extremities Exam: Normal Inspection - Back Back Exam: Normal Inspection - Neurologic Neurological Exam: Alert, Oriented X3 - Psychiatric Psychiatric Exam: Normal Affect, Normal Mood - Skin Skin Exam: Normal Color MDM - Differential Diagnosis Differential Diagnosis: ABDOMINAL PAIN, SINUSITIS, UTI, BOWEL OBSTRUCTION Course - Treatment Treatment: SEE ORDERS - Education/Counseling Education/Counseling: Patient, Family, Education Educated On: Diagnosis ROR - Labs Reviewed Result Diagrams: 09/17/17 23:45 09/17/17 23:45 Laboratory: WBC 6.1 X10^3/uL (3.6-10.0) 09/17/17 23:45 RBC 3.82 X10^6/uL (3.5-5.4) 09/17/17 23:45 Hgb 9.8 g/dL (12.0-16.0) L 09/17/17 23:45 Hct 29.5 % (36.0-47.0) L 09/17/17 23:45 MCV 77.3 fL (80.0-100.0) L 09/17/17 23:45 MCH 25.6 pg (27.0-34.0) L 09/17/17 23:45 MCHC 33.1 g/dL (33.0-35.0) 09/17/17 23:45 RDW 27.0 % (11.6-16.5) H 09/17/17 23:45 Plt Count 267 X10^3/uL (150.0-450.0) 09/17/17 23:45 Plt Count Comment Adequate (ADEQUATE) 09/17/17 23:45 MPV 8.6 fL (7.4-11.0) 09/17/17 23:45 Neut % 60.2 % (42.0-75.0) 09/17/17 23:45 Lymph % 26.0 % (21.0-51.0) 09/17/17 23:45 [place] % 9.0 % (0.0-13.0) 09/17/17 23:45 Eos % 3.3 % (0.9-2.9) H 09/17/17 23:45 Baso % 1.5 % (0.2-1.0) H 09/17/17 23:45 Neut # 3.7 x10^3/uL (2.2-4.8) 09/17/17 23:45 Lymph # 1.6 X10^3/uL (1.3-2.9) 09/17/17 23:45 [place] # 0.5 x10^3/uL (0.3-0.8) 09/17/17 23:45 Eos # 0.2 x10^3/uL (0.0-0.2) 09/17/17 23:45 Baso # 0.1 X10^3/uL (0.0-0.1) 09/17/17 23:45 Absolute Nucleated RBC 0.0 /100WBC 09/17/17 23:45 Plt Morphology Comment Normal (NORMAL) 09/17/17 23:45 RBC Morphology Abnormal (NORMAL) A 09/17/17 23:45 Hypochromasia 1+ A 09/17/17 23:45 Poikilocytosis 1+ A 09/17/17 23:45 Anisocytosis 3+ A 09/17/17 23:45 Microcytosis 1+ A 09/17/17 23:45 Target Cells Noted 09/17/17 23:45 Tear Drop Cells Noted 09/17/17 23:45 Sodium 143 mmol/L (136-145) 09/17/17 23:45 Corrected Sodium TNP 09/17/17 23:45 Potassium 3.8 mmol/L (3.5-5.1) 09/17/17 23:45 Chloride 110 mmol/L (98-107) H 09/17/17 23:45 Carbon Dioxide 22.8 mmol/L (21-32) 09/17/17 23:45 BUN 8 mg/dL (7-18) 09/17/17 23:45 Creatinine 0.61 mg/dL (0.55-1.02) 09/17/17 23:45 Est GFR (MDRD) Af Amer > 60 (>60) 09/17/17 23:45 Est GFR (MDRD) Non-Af > 60 (>60) 09/17/17 23:45 Glucose 101 mg/dL (65-99) H 09/17/17 23:45 Calcium 8.7 mg/dL (8.5-10.1) 09/17/17 23:45 Corrected Calcium 9.4 mg/dL (8.5-10.1) 09/17/17 23:45 Total Bilirubin 0.10 mg/dL (0.2-1.0) L 09/17/17 23:45 AST 20 Units/L (15-37) 09/17/17 23:45 ALT 21 Units/L (12-78) 09/17/17 23:45 Alkaline Phosphatase 118 Units/L (46-116) H 09/17/17 23:45 Total Protein 7.4 g/dL (6.4-8.2) 09/17/17 23:45 Albumin 3.1 g/dL (3.4-5.0) L 09/17/17 23:45 Globulin 4.3 g/dL (2.5-4.5) 09/17/17 23:45 Albumin/Globulin Ratio 0.7 Ratio (1.1-2.1) L 09/17/17 23:45 Amylase 121 Units/L (25-115) H 09/17/17 23:45 Lipase 378 Units/L (73-393) 09/17/17 23:45 Specimen Type Clean catch urine 09/17/17 23:57 Urine Color Pale yellow (YELLOW) 09/17/17 23:57 Urine Appearance Clear (CLEAR) 09/17/17 23:57 Urine pH 7.0 (5.0 - 8.0) 09/17/17 23:57 Ur Specific [place] 1.010 (1.000-1.030) 09/17/17 23:57 Urine Protein Negative (NEGATIVE) 09/17/17 23:57 Urine Glucose (UA) Negative (NEGATIVE) 09/17/17 23:57 Urine Ketones Negative (NEGATIVE) 09/17/17 23:57 Urine Occult Blood Negative (NEGATIVE) 09/17/17 23:57 Urine Nitrite Negative (NEGATIVE) 09/17/17 23:57 Urine Bilirubin Negative (NEGATIVE) 09/17/17 23:57 Urine Urobilinogen Normal (NORMAL) 09/17/17 23:57 Ur Leukocyte Esterase Negative (NEGATIVE) 09/17/17 23:57 Urine RBC None seen /HPF (NEGATIVE) 09/17/17 23:57 Urine WBC 0-1 /HPF (NEGATIVE) 09/17/17 23:57 Ur Squamous Epith Cells Rare /HPF (NEGATIVE) 09/17/17 23:57 Urine Bacteria Negative /HPF (NEGATIVE) 09/17/17 23:57 Ur Culture Indicated? No/not indicated 09/17/17 23:57 - XRAY XRAY Interpreted by: Radiologist XRAY Findings: REPORT DISCUSS WITH PATIENT. - Diagnosis Discharge Problem: Pancreatitis Qualifiers: Chronicity: acute Pancreatitis type: other Acute pancreatitis complication: no infection or necrosis Qualified Code(s): K85.80 - Other acute pancreatitis without necrosis or infection Abdominal pain Qualifiers: Abdominal location: generalized Qualified Code(s): R10.84 - Generalized abdominal pain - Discharge Plan Disposition: 01 HOME, SELF-CARE Condition: Stable - Follow ups/Referrals Follow ups/Referrals: Moris VEGAS [Primary Care Provider] - 2 days - Instructions Instructions: Acute Pancreatitis Additional Instructions: RETURN TO ED IF WORSE. CONTINUE WITH MEDS AT HOME.
[2017-09-17] MEDS ORDERED: DEMEROL INJ IVP ONE (23:36)
[2017-09-17] MEDS ORDERED: ZOFRAN INJ 4 MG VIAL IVP ONE (23:36)
[2017-09-17 23:37] VITALS: BMI 15.1
[2017-09-17] MEDS ORDERED: ZOFRAN INJ 4 MG VIAL ONE (23:45)
[2017-09-17] MEDS ORDERED: DEMEROL INJ ONE (23:45)
[2017-09-17 23:54] LABS: LYMPHOCYTES # (AUTO) 1.6 X10^3/uL (1.3-2.9); MONOCYTES # (AUTO) 0.5 x10^3/uL (0.3-0.8)
[2017-09-17 23:59] LABS: BASOPHILS # (AUTO) 0.1 X10^3/uL (0.0-0.1); BASOPHILS % (AUTO) 1.5 % (0.2-1.0); EOSINOPHILS # (AUTO) 0.2 x10^3/uL (0.0-0.2); EOSINOPHILS % (AUTO) 3.3 % (0.9-2.9); HEMATOCRIT 29.5 % (36.0-47.0); HEMOGLOBIN 9.8 g/dL (12.0-16.0); MEAN CORPUSCULAR HEMOGLOBIN 25.6 pg (27.0-34.0); MEAN CORPUSCULAR HGB CONC 33.1 g/dL (33.0-35.0); MEAN CORPUSCULAR VOLUME 77.3 fL (80.0-100.0); MEAN PLATELET VOLUME 8.6 fL (7.4-11.0); NEUTROPHILS # (AUTO) 3.7 x10^3/uL (2.2-4.8); NEUTROPHILS % (AUTO) 60.2 % (42.0-75.0); PLATELET COUNT 267 X10^3/uL (150.0-450.0); RED BLOOD COUNT 3.82 X10^6/uL (3.5-5.4); WHITE BLOOD COUNT 6.1 X10^3/uL (3.6-10.0)
[2017-09-18] MEDS ORDERED: BENADRYL INJ 50 MG VIAL IVP ONE (00:01)
[2017-09-18] MEDS ORDERED: BENADRYL INJ 50 MG VIAL ONE (00:04)
[2017-09-18 00:06] LABS: ALANINE AMINOTRANSFERASE 21 Units/L (12-78); ALBUMIN 3.1 g/dL (3.4-5.0); ALKALINE PHOSPHATASE 118 Units/L (46-116); AMYLASE 121 Units/L (25-115); ASPARTATE AMINO TRANSFERASE 20 Units/L (15-37); BLOOD UREA NITROGEN 8 mg/dL (7-18); CALCIUM 8.7 mg/dL (8.5-10.1); CARBON DIOXIDE 22.8 mmol/L (21-32); CHLORIDE 110 mmol/L (98-107); COR CA(FOR HYPOALB) 9.4 mg/dL (8.5-10.1); CREATININE 0.61 mg/dL (0.55-1.02); LIPASE 378 Units/L (73-393); SODIUM 143 mmol/L (136-145); TOTAL PROTEIN 7.4 g/dL (6.4-8.2); eGFR BLACK RACES > 60 (>60); eGFR NON BLACK RACES > 60 (>60)
[2017-09-18 00:13] LABS: HYPOCHROMASIA 1+; PLATELET MORPHOLOGY COMMENT NORMAL (NORMAL)
[2017-09-18 00:14] LABS: ANISOCYTOSIS 3+; MICROCYTOSIS 1+; POIKILOCYTOSIS 1+; TARGET CELLS NOTED; TEAR DROP CELLS NOTED
[2017-09-18 00:18] LABS: BILIRUBIN,URINE NEGATIVE (NEGATIVE); BLOOD/HEMOGLOBIN,URINE NEGATIVE (NEGATIVE); GLUCOSE, URINE NEGATIVE (NEGATIVE); KETONES,URINE NEGATIVE (NEGATIVE); LEUKOCYTE ESTERASE ,URINE NEGATIVE (NEGATIVE); NITRITES,URINE NEGATIVE (NEGATIVE); PROTEIN,URINE NEGATIVE (NEGATIVE); UROBILINOGEN,URINE NORMAL (NORMAL)
[2017-09-18 00:24] LABS: APPEARANCE,URINE CLEAR (CLEAR); BACTERIA,URINE NEGATIVE /HPF (NEGATIVE); COLOR,URINE PALE YELLOW (YELLOW); RBC,URINE NONE SEEN /HPF (NEGATIVE); SQUAMOUS EPITHELIAL CELL,UR RARE /HPF (NEGATIVE)
--- NOTE | 2017-09-18 01:43 | RAD ---
Acute abdominal series Indication: Mid epigastric pain Comparison: 08/30/2017 Findings: The trachea is midline. The cardiac silhouette is unremarkable. The lungs are clear without focal i nfiltrate or effusion. The bony thorax is unremarkable. Flat and upright evaluation of the abdomen demonstrates a normal bowel gas pattern. No pathological soft tissue mass or calcification can be observed. The bony structures are grossly intact. Multiple surgical clips overlie the right upper pelvis. Degenerative changes noted within the pubic symphysis joint. There is very mild levoscoliosis of the lumbar spine. Suture material is noted within the righ t upper quadrant. IMPRESSION: 1. No acute cardiopulmonary disease. 2. No evidence for acute abdominal pathology identified. Reported By:
[2017-09-18 01:53] VITALS: BP 154/93
== END 2017-09-18 02:00 | disposition home or self-care (01) ==
LOC: ER 23:27
DX: K85.80 Other acute pancreatitis without necrosis or infection (principal); R10.84 Generalized abdominal pain
CPT/HCPCS: 36415; 74022; 80053; 81001; 82150; 83690; 85025; 96365; 96374; 96375; 99283; A4222; J1200; J2175; J2405

== ENCOUNTER 2017-11-11 12:51 | Emergency (ER) | payer OTHER, MEDICAID ==
[2017-11-11 13:06] VITALS: BP 171/97; BMI 21.9
[2017-11-11] MEDS ORDERED: DEMEROL INJ IVP ONE (13:38)
[2017-11-11] MEDS ORDERED: NS 1000 ML 1,000 ML IV ONE (13:38)
[2017-11-11] MEDS ORDERED: PHENERGAN INJ 25 MG IV ONE (13:39)
--- NOTE | 2017-11-11 13:39 | DR.GENAD ---
HPI - PCP Primary Care Physician: ASCENCION - Complaint/Symptoms Chief Complaint Doctors Comments: Patient presented with complaint of dyspnea just prior to being seed today. She denies fever, vomitng or diarrhea. She states that she was clearing with routine household cleaning products. She denies fever, vomiting or diarrhea Chief Complaint:: PATIENT IS HURTING AND CAN'T BREATH. SHE STATED THAT THIS JUST HAPPENED. SHE FELT LIKE SHE COULDN'T CATCH HER BREATH AND FELL. - Source History Provided: Patient - Mode of Arrival Mode of Arrival: Ambulatory - Timing Onset of Chief Complaint: 11/11/17 PMH - PMH Past Medical History: Yes Past Medical History: Hypertension Past Medical History Comment: PANCRITITIS Past Surgical History: Yes Surgical History: Hysterectomy - Family History History of Family Medical Conditions: Yes Family Medical History: Diabetes Mellitus, Cancer, Hypertension - Social History Does patient currently use any type of tobacco product: Yes Have you used tobacco products in the last 12 months: Yes Type of Tobacco Use: Cigarettes Does any household member use tobacco: No Alcohol Use: None Do you use any recreational Drugs:: No Lives With: Family Lives Where: Home - infectious screening In the last 2 months have you had wt loss of >10#?: NO Have you had fever, night sweats or hemotysis?: No Have you traveled outside the country in the last 6 months?: No Isolation: Standard ROS - Review of Systems Eyes: No Symptoms Reported ENTM: No Symptoms Reported Respiratoy: Short of Breath Cardiovascular: No Symptoms Reported Gastrointestinal/Abdominal: No Symptoms Reported Genitourinary: No Symptoms Reported Neurological: No Symptoms Reported Musculoskeletal: Other (hip pain) Integumentary: No Symptoms Reported Hematologic/Lymphatic: No Symptoms Reported Endocrine: No Symptoms Reported Psychiatric: No Symptoms Reported All Other Systems: Reviewed and Negative PE - Vital Signs Vitals: Temperature 98.4 F Pulse Rate 100 Respiratory Rate 18 Blood Pressure [Left Arm] 154/93 Blood Pressure [Right Arm] 185/109 Blood Pressure 171/97 O2 Sat by Pulse Oximetry 98 - General General Appearance: Alert, Anxious - Head Head Exam: Normal Inspection, Atraumatic - Eyes Eye exam: Normal Appearance, PERRL, EOMI - ENT ENT Exam: Normal Exam External Ear Exam: Normal External Inspection TM/Canal Exam: Bilateral Normal Nose Exam: Normal Nose Exam Mouth Exam: Normal Inspection Throat Exam: Normal Inspection - Neck Neck Exam: Normal Inspection, Full ROM - Chest Chest Inspection: Normal Inspection - Respiratory Respiratory Exam: Normal Lung Sounds Bilat Respiratory Exam: Bilateral Clear to Auscultation - Cardiovascular Cardiovascular Exam: Regular Rate, Normal Rhythm - Abdominal Exam Abdominal Exam: Normal Inspection Abdominal Tenderness: negative: RUQ, RLQ, LUQ, LLQ, Epigastrium, Suprapubic, Diffuse, Mild, Moderate, Severe, Other - Extremities Extremities Exam: Normal Inspection, Full ROM - Back Back Exam: Normal Inspection, Full ROM - Neurologic Neurological Exam: Alert, Oriented X3, CN II-XII Intact - Psychiatric Psychiatric Exam: Normal Affect, Normal Mood - Skin Skin Exam: Warm, Dry, Intact Course - Reevaluation 1st: Improved ROR - Labs Reviewed Result Diagrams: 11/11/17 13:53 11/11/17 13:53 Laboratory: WBC 4.3 X10^3/uL (3.6-10.0) 11/11/17 13:53 RBC 3.70 X10^6/uL (3.5-5.4) 11/11/17 13:53 Hgb 9.4 g/dL (12.0-16.0) L 11/11/17 13:53 Hct 29.1 % (36.0-47.0) L 11/11/17 13:53 MCV 78.5 fL (80.0-100.0) L 11/11/17 13:53 MCH 25.3 pg (27.0-34.0) L 11/11/17 13:53 MCHC 32.2 g/dL (33.0-35.0) L 11/11/17 13:53 RDW 19.9 % (11.6-16.5) H 11/11/17 13:53 Plt Count 194 X10^3/uL (150.0-450.0) 11/11/17 13:53 Plt Count Comment Adequate (ADEQUATE) 11/11/17 13:53 MPV 8.3 fL (7.4-11.0) 11/11/17 13:53 Neut % 59.7 % (42.0-75.0) 11/11/17 13:53 Lymph % 26.3 % (21.0-51.0) 11/11/17 13:53 [place] % 8.7 % (0.0-13.0) 11/11/17 13:53 Eos % 3.9 % (0.9-2.9) H 11/11/17 13:53 Baso % 1.4 % (0.2-1.0) H 11/11/17 13:53 Neut # 2.5 x10^3/uL (2.2-4.8) 11/11/17 13:53 Lymph # 1.1 X10^3/uL (1.3-2.9) L 11/11/17 13:53 [place] # 0.4 x10^3/uL (0.3-0.8) 11/11/17 13:53 Eos # 0.2 x10^3/uL (0.0-0.2) 11/11/17 13:53 Baso # 0.1 X10^3/uL (0.0-0.1) 11/11/17 13:53 Absolute Nucleated RBC 0.0 /100WBC 11/11/17 13:53 Plt Morphology Comment Normal (NORMAL) 11/11/17 13:53 RBC Morphology Normal (NORMAL) 11/11/17 13:53 D-Dimer < 100 ng/mL (0-400) 11/11/17 13:53 Sodium 140 mmol/L (136-145) 11/11/17 13:53 Corrected Sodium 141 mmol/L (136-145) 11/11/17 13:53 Potassium 3.6 mmol/L (3.5-5.1) 11/11/17 13:53 Chloride 105 mmol/L (98-107) 11/11/17 13:53 Carbon Dioxide 25.0 mmol/L (21-32) 11/11/17 13:53 BUN 9 mg/dL (7-18) 11/11/17 13:53 Creatinine 0.71 mg/dL (0.55-1.02) 11/11/17 13:53 Est GFR (MDRD) Af Amer > 60 (>60) 11/11/17 13:53 Est GFR (MDRD) Non-Af > 60 (>60) 11/11/17 13:53 Glucose 134 mg/dL (65-99) H 11/11/17 13:53 Calcium 8.7 mg/dL (8.5-10.1) 11/11/17 13:53 Corrected Calcium TNP 11/11/17 13:53 Total Bilirubin 0.10 mg/dL (0.2-1.0) L 11/11/17 13:53 AST 28 Units/L (15-37) 11/11/17 13:53 ALT 29 Units/L (12-78) 11/11/17 13:53 Alkaline Phosphatase 116 Units/L (46-116) 11/11/17 13:53 C-Reactive Protein < 0.50 mg/L (0-3.0) 11/11/17 13:53 Total Protein 7.8 g/dL (6.4-8.2) 11/11/17 13:53 Albumin 3.6 g/dL (3.4-5.0) 11/11/17 13:53 Globulin 4.2 g/dL (2.5-4.5) 11/11/17 13:53 Albumin/Globulin Ratio 0.9 Ratio (1.1-2.1) L 11/11/17 13:53 Amylase 93 Units/L (25-115) 11/11/17 13:53 Lipase 198 Units/L (73-393) 11/11/17 13:53 Influenza Type A (PCR) Negative (NEGATIVE) 11/11/17 13:54 Influenza Type B (PCR) Negative (NEGATIVE) 11/11/17 13:54 - XRAY XRAY Interpreted by: Radiologist (chest: no acute abnormality noted) - Diagnosis Discharge Problem: Anemia Qualifiers: Anemia type: iron deficiency - Discharge Plan Condition: Stable - Follow ups/Referrals Follow ups/Referrals: Moris VEGAS [Primary Care Provider] - 3 days - Instructions
[2017-11-11] MEDS ORDERED: PHENERGAN INJ 25 MG ONE (13:43)
[2017-11-11] MEDS ORDERED: NS 1000 ML 1,000 ML ONE (13:43)
[2017-11-11] MEDS ORDERED: DEMEROL INJ ONE (13:44)
[2017-11-11] MEDS ORDERED: BENADRYL INJ 50 MG VIAL ONE (13:58)
[2017-11-11] MEDS ORDERED: BENADRYL INJ 50 MG VIAL IVP ONE (13:59)
[2017-11-11 14:00] LABS: BASOPHILS # (AUTO) 0.1 X10^3/uL (0.0-0.1); BASOPHILS % (AUTO) 1.4 % (0.2-1.0); EOSINOPHILS # (AUTO) 0.2 x10^3/uL (0.0-0.2); EOSINOPHILS % (AUTO) 3.9 % (0.9-2.9); HEMATOCRIT 29.1 % (36.0-47.0); HEMOGLOBIN 9.4 g/dL (12.0-16.0); LYMPHOCYTES # (AUTO) 1.1 X10^3/uL (1.3-2.9); LYMPHOCYTES % (AUTO) 26.3 % (21.0-51.0); MEAN CORPUSCULAR HEMOGLOBIN 25.3 pg (27.0-34.0); MEAN CORPUSCULAR HGB CONC 32.2 g/dL (33.0-35.0); MEAN CORPUSCULAR VOLUME 78.5 fL (80.0-100.0); MEAN PLATELET VOLUME 8.3 fL (7.4-11.0); MONOCYTES # (AUTO) 0.4 x10^3/uL (0.3-0.8); MONOCYTES % (AUTO) 8.7 % (0.0-13.0); NEUTROPHILS # (AUTO) 2.5 x10^3/uL (2.2-4.8); NEUTROPHILS % (AUTO) 59.7 % (42.0-75.0); PLATELET COUNT 194 X10^3/uL (150.0-450.0); RED CELL DISTRIBUTION WIDTH 19.9 % (11.6-16.5); WHITE BLOOD COUNT 4.3 X10^3/uL (3.6-10.0)
[2017-11-11 14:11] LABS: PLATELET MORPHOLOGY COMMENT NORMAL (NORMAL)
[2017-11-11 14:20] LABS: ALANINE AMINOTRANSFERASE 29 Units/L (12-78); ALBUMIN 3.6 g/dL (3.4-5.0); ALKALINE PHOSPHATASE 116 Units/L (46-116); AMYLASE 93 Units/L (25-115); ASPARTATE AMINO TRANSFERASE 28 Units/L (15-37); BLOOD UREA NITROGEN 9 mg/dL (7-18); C-REACTIVE PROTEIN < 0.50 mg/L (0-3.0); CALCIUM 8.7 mg/dL (8.5-10.1); CHLORIDE 105 mmol/L (98-107); COR NA(FOR HYPERGLY) 141 mmol/L (136-145); CREATININE 0.71 mg/dL (0.55-1.02); LIPASE 198 Units/L (73-393); SODIUM 140 mmol/L (136-145); TOTAL PROTEIN 7.8 g/dL (6.4-8.2); eGFR BLACK RACES > 60 (>60); eGFR NON BLACK RACES > 60 (>60)
--- NOTE | 2017-11-11 14:22 | RAD ---
Examination: Portable AP chest History: Pain, can't breathe Comparison reference 04/25/2017 Findings: Transverse heart diameter is normal. There is suggestion of a mild diffuse infiltrate in th e left mid lung. This could be related to overlying soft tissues, however. No definite consolidation, pulmonary edema or pleural fluid identified. Impression: Rule out small infiltrate left mid lung, see above. Follow-up with standard PA and latera l views recommended to evaluate. Reported By:
--- NOTE | 2017-11-11 15:30 | RAD ---
Examination: Chest, PA and lateral views History: Can't breathe Comparison reference earlier today Findings: The heart is upper normal. The lungs and pleural spaces are essentially clear on this follo w-up study. There is no evidence for infiltrate, pulmonary edema or significant pleural effusion. Impression: No acute pulmonary or pleural lesion now suspected. Reported By:
== END 2017-11-11 16:29 | disposition home or self-care (01) ==
LOC: ER 13:00
DX: D64.89 Other specified anemias (principal)
CPT/HCPCS: 36415; 71045; 71046; 80053; 82150; 83690; 85025; 85378; 86140; 87502; 96365; 96374; 96375; 99283; A4222; J1200; J2175; J2550

== ENCOUNTER 2017-12-15 00:53 | Emergency (ER) | payer OTHER, MEDICAID ==
[2017-12-15 01:05] VITALS: BP 165/89; BMI 22.4
[2017-12-15] MEDS ORDERED: ZOFRAN INJ 4 MG VIAL IVP ONE (04:40)
[2017-12-15] MEDS ORDERED: TORADOL 30 MG VIAL IVP STA (04:41)
[2017-12-15] MEDS ORDERED: NS 1000 ML 1,000 ML IV ONE (04:41)
--- NOTE | 2017-12-15 04:45 | DR.GENAD ---
HPI - PCP Primary Care Physician: Campos - Complaint/Symptoms Chief Complaint Doctors Comments: Patient is compmplaining of LUQ and upper back pain for the past24 hours getting worst the last five hours with decreased appetite and inabilty to keep anything down. states she has a history of pancreatitis and her back and stomach usually hurts like it is doing tonight when she has a flare up of her pancreatitis. states she smokes 1 1/2 pack cigarettes daily but she do not drink alcohol. States she is allergic to Morphine and they usually have to give her Dilaudid for her pain. States she is a patient of Dr. Gasca. She denies dysuria, hematuria, diarrhea or brittny. Chief Complaint:: hurting in my back and stomach also vomiting Self Treatment fo Chief Complaint: took prescribed pain med and muscle relaxer - Nurses notes reviewed Nurses Notes Review: Yes - Source History Provided: Patient - Mode of Arrival Mode of Arrival: Ambulatory - Timing Onset of Chief Complaint: 12/14/17 Came on: Gradually - Duration Duration: Constant How lon Duration: Hours - Location Location: epigastric and LUQ pain - Severity Severity: Moderate - Modifying Factors Worsens:: movement Improves:: nothing PMH - PMH Past Medical History: Yes Past Medical History: Hypertension Past Medical History Comment: pancreatitis Past Surgical History: Yes 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 negative: See HPI, Chills, Diaphoresis, Fever, Malaise, Irritable, Fatigue, Other Eyes: No Symptoms Reported. negative: See HPI, Eye Pain, Blurred Vision, Tearing, Discharge, Photophobia, Diplopia, Other ENTM: No Symptoms Reported Respiratoy: No Symptoms Reported. negative: See HPI, Productive Cough, Non- Productive Cough, Moist Cough, Dry Cough, Hacking Cough, Barking Cough, Brassy Cough, Orthopnea, Short of Breath, Stridor, Wheezing, Hemoptysis, Other Cardiovascular: No Symptoms Reported Gastrointestinal/Abdominal: No Symptoms Reported, Abdominal Pain, Nausea, Vomiting. negative: See HPI, Constipation, Diarrhea, Food Intolerance, Other Genitourinary: No Symptoms Reported Neurological: No Symptoms Reported Musculoskeletal: No Symptoms Reported, Back Pain Integumentary: No Symptoms Reported, Rash (lower leg with multiple lesions with honey cone coloration). negative: See HPI, Change in Color, Change in Hair/ Nails, Dryness, Lesions, Lumps, Itching, Wound, Bruises, Juandice, Other Hematologic/Lymphatic: No Symptoms Reported Endocrine: No Symptoms Reported Psychiatric: No Symptoms Reported PE - Vital Signs Vitals: Temperature 97.8 F Pulse Rate 82 Respiratory Rate 20 Blood Pressure [Left Arm] 154/93 Blood Pressure [Right Arm] 185/109 Blood Pressure 165/89 O2 Sat by Pulse Oximetry 99 - General Limitations: No Limitations General Appearance: Alert, In Distress (mild) - Head Head Exam: Normal Inspection, Atraumatic, Normocephalic - Eyes Eye exam: Normal Appearance, PERRL, EOMI. negative: Scleral Icterus, Conjunctival Injection, Nystagmus, Miosis, Mydrasis, Periorbital Swelling, Periorbital Tenderness, Other - ENT ENT Exam: Normal Exam, Normal Oropharynx, Normal External Ear Exam, Mucous Membranes Moist, TM's Normal Bilaterally External Ear Exam: Normal External Inspection TM/Canal Exam: Bilateral Normal Nose Exam: Normal Nose Exam Mouth Exam: Normal Inspection Throat Exam: Normal Inspection - Neck Neck Exam: Normal Inspection, Full ROM, Trachea Midline - Chest Chest Inspection: Normal Inspection, Symmetric Chest Wall Rise - Respiratory Respiratory Exam: Normal Lung Sounds Bilat Respiratory Exam: Bilateral Clear to Auscultation - Cardiovascular Cardiovascular Exam: Regular Rate, Normal Rhythm, Normal Heart Sounds - Abdominal Exam Abdominal Exam: Normal Inspection, Normal Bowel Sounds, Soft Abdominal Tenderness: LUQ, Epigastrium, Moderate - Extremities Extremities Exam: Normal Inspection, Full ROM, Normal Capillary Refill. negative: Tenderness, Edema, Joint Swelling, Calf Tenderness, Other - Back Back Exam: Normal Inspection, Full ROM, (L) CVA Tenderness. negative: Tenderness, (R) CVA Tenderness, Muscle Spasm, Paraspinal Tenderness, Vertebral Tenderness, Rashes, (R) Sciatic Notch Tenderness, (L) Sciatic Notch Tendern, (R ) Straight Leg Raise, (L) Straight Leg Raise, Other - Neurologic Neurological Exam: Alert, Oriented X3, CN II-XII Intact, Reflexes Normal. negative: Normal Gait (gait not tested) - Psychiatric Psychiatric Exam: Normal Affect, Normal Mood - Skin Skin Exam: Warm, Dry, Intact, Normal Color, Rash (lower legs with excoriation) ROR - Labs Reviewed Laboratory Results Reviewed?: Yes (all labs and x-ray results reviewed and discussed with patient) Result Diagrams: 12/15/17 04:48 12/15/17 04:48 Laboratory: WBC 4.3 X10^3/uL (3.6-10.0) 12/15/17 04:48 RBC 3.79 X10^6/uL (3.5-5.4) 12/15/17 04:48 Hgb 9.6 g/dL (12.0-16.0) L 12/15/17 04:48 Hct 30.2 % (36.0-47.0) L 12/15/17 04:48 MCV 79.8 fL (80.0-100.0) L 12/15/17 04:48 MCH 25.4 pg (27.0-34.0) L 12/15/17 04:48 MCHC 31.8 g/dL (33.0-35.0) L 12/15/17 04:48 RDW 20.3 % (11.6-16.5) H 12/15/17 04:48 Plt Count 170 X10^3/uL (150.0-450.0) 12/15/17 04:48 Plt Count Comment Adequate (ADEQUATE) 12/15/17 04:48 MPV 8.6 fL (7.4-11.0) 12/15/17 04:48 Neut % 53.0 % (42.0-75.0) 12/15/17 04:48 Lymph % 30.9 % (21.0-51.0) 12/15/17 04:48 [place] % 6.3 % (0.0-13.0) 12/15/17 04:48 Eos % 8.8 % (0.9-2.9) H 12/15/17 04:48 Baso % 1.0 % (0.2-1.0) 12/15/17 04:48 Neut # 2.3 x10^3/uL (2.2-4.8) 12/15/17 04:48 Lymph # 1.3 X10^3/uL (1.3-2.9) 12/15/17 04:48 [place] # 0.3 x10^3/uL (0.3-0.8) 12/15/17 04:48 Eos # 0.4 x10^3/uL (0.0-0.2) H 12/15/17 04:48 Baso # 0.0 X10^3/uL (0.0-0.1) 12/15/17 04:48 Absolute Nucleated RBC 0.0 /100WBC 12/15/17 04:48 Plt Morphology Comment Normal (NORMAL) 12/15/17 04:48 RBC Morphology Abnormal (NORMAL) A 12/15/17 04:48 Hypochromasia Slight A 12/15/17 04:48 Anisocytosis 1+ A 12/15/17 04:48 Sodium 141 mmol/L (136-145) 12/15/17 04:48 Corrected Sodium TNP 12/15/17 04:48 Potassium 3.1 mmol/L (3.5-5.1) L 12/15/17 04:48 Chloride 106 mmol/L (98-107) 12/15/17 04:48 Carbon Dioxide 28.4 mmol/L (21-32) 12/15/17 04:48 BUN 11 mg/dL (7-18) 12/15/17 04:48 Creatinine 0.57 mg/dL (0.55-1.02) 12/15/17 04:48 Est GFR (MDRD) Af Amer > 60 (>60) 12/15/17 04:48 Est GFR (MDRD) Non-Af > 60 (>60) 12/15/17 04:48 Glucose 90 mg/dL (65-99) 12/15/17 04:48 Calcium 8.0 mg/dL (8.5-10.1) L 12/15/17 04:48 Corrected Calcium 8.7 mg/dL (8.5-10.1) 12/15/17 04:48 Total Bilirubin < 0.10 mg/dL (0.2-1.0) L 12/15/17 04:48 AST 86 Units/L (15-37) H 12/15/17 04:48 ALT 124 Units/L (12-78) H 12/15/17 04:48 Alkaline Phosphatase 151 Units/L (46-116) H 12/15/17 04:48 Total Protein 7.1 g/dL (6.4-8.2) 12/15/17 04:48 Albumin 3.1 g/dL (3.4-5.0) L 12/15/17 04:48 Globulin 4.0 g/dL (2.5-4.5) 12/15/17 04:48 Albumin/Globulin Ratio 0.8 Ratio (1.1-2.1) L 12/15/17 04:48 Amylase 103 Units/L (25-115) 12/15/17 04:48 Lipase 125 Units/L (73-393) 12/15/17 04:48 HCG, Qual Negative <10 mIU/mL 12/15/17 04:48 Specimen Type Clean catch urine 12/15/17 05:46 Urine Color Yellow (YELLOW) 12/15/17 05:46 Urine Appearance Clear (CLEAR) 12/15/17 05:46 Urine pH 6.5 (5.0 - 8.0) 12/15/17 05:46 Ur Specific [place] 1.015 (1.000-1.030) 12/15/17 05:46 Urine Protein Negative (NEGATIVE) 12/15/17 05:46 Urine Glucose (UA) Negative (NEGATIVE) 12/15/17 05:46 Urine Ketones Negative (NEGATIVE) 12/15/17 05:46 Urine Occult Blood Negative (NEGATIVE) 12/15/17 05:46 Urine Nitrite Negative (NEGATIVE) 12/15/17 05:46 Urine Bilirubin Negative (NEGATIVE) 12/15/17 05:46 Urine Urobilinogen Normal (NORMAL) 12/15/17 05:46 Ur Leukocyte Esterase 1+ (NEGATIVE) 12/15/17 05:46 Urine RBC 0 /HPF (NEGATIVE) 12/15/17 05:46 Urine WBC 0 /HPF (NEGATIVE) 12/15/17 05:46 Ur Squamous Epith Cells Negative /HPF (NEGATIVE) 12/15/17 05:46 Urine Bacteria Negative /HPF (NEGATIVE) 12/15/17 05:46 Ur Culture Indicated? No/not indicated 12/15/17 05:46 Urine Opiates Screen Positive (NEG=<300) A 12/15/17 05:46 Urine Methadone Screen Negative (NEG=<300) 12/15/17 05:46 Ur Barbiturates Screen Negative (NEG=<200) 12/15/17 05:46 Ur Phencyclidine Scrn Negative (NEG=<25) 12/15/17 05:46 Ur Amphetamines Screen Negative (NEG=<1000) 12/15/17 05:46 U Benzodiazepines Scrn Negative (NEG=<200) 12/15/17 05:46 Urine Cocaine Screen Negative (NEG=<300) 12/15/17 05:46 U Marijuana (THC) Screen Negative (NEG=<50) 12/15/17 05:46 H. pylori IgG Antibody Negative (NEGATIVE) 12/15/17 04:48 - XRAY XRAY Interpreted by: Radiologist (CT abdomen: Persistent biliary dilataion since 2014 unchanged. Extensive intra-abdominal postsurgical change without aother acute abnormality) - Diagnosis Discharge Problem: abdominal pain in adult, Hypokalemia, Microcytic anemia, Chronic anemia - Discharge Plan Disposition: HOME, SELF-CARE Condition: Stable Prescriptions: Dexlansoprazole [Dexilant] 60 mg PO DAILY PRN #30 cap.bp PRN Reason: Ferrous Sulfate 325 mg PO BID PRN #60 tab PRN Reason: - Follow ups/Referrals Follow ups/Referrals: Gene Gasca [Primary Care Provider] - 3 days - Instructions Instructions: Abdominal Pain, Pediatric, Hypokalemia, Iron Deficiency Anemia, Adult, Duodenitis
[2017-12-15] MEDS ORDERED: NS 1000 ML 1,000 ML ONE (04:52)
[2017-12-15] MEDS ORDERED: TORADOL 30 MG VIAL ONE (05:03)
[2017-12-15] MEDS ORDERED: ZOFRAN INJ 4 MG VIAL ONE (05:03)
[2017-12-15 05:06] LABS: EOSINOPHILS # (AUTO) 0.4 x10^3/uL (0.0-0.2); EOSINOPHILS % (AUTO) 8.8 % (0.9-2.9); HEMATOCRIT 30.2 % (36.0-47.0); HEMOGLOBIN 9.6 g/dL (12.0-16.0); LYMPHOCYTES # (AUTO) 1.3 X10^3/uL (1.3-2.9); LYMPHOCYTES % (AUTO) 30.9 % (21.0-51.0); MEAN CORPUSCULAR HEMOGLOBIN 25.4 pg (27.0-34.0); MEAN CORPUSCULAR HGB CONC 31.8 g/dL (33.0-35.0); MEAN CORPUSCULAR VOLUME 79.8 fL (80.0-100.0); MEAN PLATELET VOLUME 8.6 fL (7.4-11.0); MONOCYTES # (AUTO) 0.3 x10^3/uL (0.3-0.8); MONOCYTES % (AUTO) 6.3 % (0.0-13.0); NEUTROPHILS # (AUTO) 2.3 x10^3/uL (2.2-4.8); PLATELET COUNT 170 X10^3/uL (150.0-450.0); RED BLOOD COUNT 3.79 X10^6/uL (3.5-5.4); RED CELL DISTRIBUTION WIDTH 20.3 % (11.6-16.5); WHITE BLOOD COUNT 4.3 X10^3/uL (3.6-10.0)
[2017-12-15] MEDS ORDERED: BENADRYL INJ 50 MG VIAL ONE (05:06)
[2017-12-15 05:13] LABS: ALANINE AMINOTRANSFERASE 124 Units/L (12-78); ALBUMIN 3.1 g/dL (3.4-5.0); ALKALINE PHOSPHATASE 151 Units/L (46-116); AMYLASE 103 Units/L (25-115); ASPARTATE AMINO TRANSFERASE 86 Units/L (15-37); BLOOD UREA NITROGEN 11 mg/dL (7-18); CARBON DIOXIDE 28.4 mmol/L (21-32); CHLORIDE 106 mmol/L (98-107); COR CA(FOR HYPOALB) 8.7 mg/dL (8.5-10.1); CREATININE 0.57 mg/dL (0.55-1.02); LIPASE 125 Units/L (73-393); SODIUM 141 mmol/L (136-145); TOTAL PROTEIN 7.1 g/dL (6.4-8.2); eGFR BLACK RACES > 60 (>60); eGFR NON BLACK RACES > 60 (>60)
[2017-12-15 05:25] LABS: SERUM PREGNANCY TEST, QUAL NEGATIVE <10 mIU/mL
[2017-12-15 05:26] LABS: PLATELET MORPHOLOGY COMMENT NORMAL (NORMAL)
[2017-12-15 05:27] LABS: ANISOCYTOSIS 1+; HYPOCHROMASIA SLIGHT
--- NOTE | 2017-12-15 05:49 | CT ---
CT abdomen and pelvis without contrast Indication: Epigastric and left upper quadrant pain with history of pancreatitis. Comparison: 10/17/2015 CT abdomen and pelvis. Technique: Helical images through the abdomen and pelvis without contrast. Coronal and sagittal refor mats provided. Findings: Limited images through the lower chest show prominent heart size and minimal ground-glass o pacities. Review of bone windows shows no destructive osseous lesion. Abdomen: The gallbladder is probably absent with clips seen near the liver. The common bile duct is m arkedly dilated. Intrahepatic biliary dilatation noted. The pancreas appears relatively normal with u nderlying lesion not completely excluded given biliary dilatation. The spleen, kidneys, adrenal gland s, stomach and small bowel appear normal. Postsurgical small bowel change noted. Noninflamed colonic diverticulum noted. The appendix is not seen, possibly absent. No acute colonic abnormalities seen. V ascular plaque noted. Pelvis: The urinary bladder and rectum are normal. Uterus is absent. No adnexal region lesions seen. Impression: 1. Persistent biliary dilatation, relatively unchanged since 2014. Underlying stricture or lesion not completely excluded. MRCP follow-up should be considered 2. Prominent heart size lung changes suggesting possible cardiac dysfunction. Correlate clinically fo r CHF. 3. Extensive intra-abdominal postsurgical change without other acute abnormality seen. Lack of IV con trast limits sensitivity for solid organ lesion Reported By:
[2017-12-15] MEDS ORDERED: K-LYTE EFFERVESCENT PO SCH (06:00)
[2017-12-15 06:02] LABS: BILIRUBIN,URINE NEGATIVE (NEGATIVE); BLOOD/HEMOGLOBIN,URINE NEGATIVE (NEGATIVE); GLUCOSE, URINE NEGATIVE (NEGATIVE); KETONES,URINE NEGATIVE (NEGATIVE); LEUKOCYTE ESTERASE ,URINE 1+ (NEGATIVE); NITRITES,URINE NEGATIVE (NEGATIVE); PH,URINE 6.5 (5.0 - 8.0); PROTEIN,URINE NEGATIVE (NEGATIVE); UROBILINOGEN,URINE NORMAL (NORMAL)
[2017-12-15 06:09] LABS: APPEARANCE,URINE CLEAR (CLEAR); COLOR,URINE YELLOW (YELLOW); RBC,URINE 0 /HPF (NEGATIVE)
[2017-12-15 06:10] LABS: BACTERIA,URINE NEGATIVE /HPF (NEGATIVE); SQUAMOUS EPITHELIAL CELL,UR NEGATIVE /HPF (NEGATIVE)
[2017-12-15] MEDS ORDERED: K-LYTE EFFERVESCENT ONE (06:16)
[2017-12-19] MEDS ORDERED: BENADRYL INJ 50 MG VIAL IVP ONE (02:31)
== END 2017-12-15 07:28 | disposition home or self-care (01) ==
LOC: ER 00:53
DX: R10.12 Left upper quadrant pain (principal); E87.6 Hypokalemia; D53.9 Nutritional anemia, unspecified; D64.89 Other specified anemias
CPT/HCPCS: 36415; 74176; 80053; 80307; 81001; 82150; 83690; 84703; 85025; 86677; 96365; 96374; 96375; 99282; 99283; A4216; A4222; G0434; J1200; J1885; J2405

== ENCOUNTER 2019-05-17 03:38 | Inpatient (IN) ==
[2019-05-17 03:48] VITALS: BMI 21.7
[2019-05-17] MEDS ORDERED: ZOFRAN INJ 4 MG VIAL IVP ONE (04:06)
[2019-05-17] MEDS ORDERED: NS 1000 ML 1,000 ML IV ONE (04:06)
[2019-05-17] MEDS ORDERED: DEMEROL INJ IVP ONE (04:10)
--- NOTE | 2019-05-17 04:17 | ED.ABDFE ---
HPI Time Seen Time Seen by Provider: 05/17/19 04:04 PCP Primary Care Physician: ASCENCION HPI Comment HPI Comment: Patient presents with a history of vomiting for 3 days associated with stomach pain. She has a history of pancreatitis but denies any known t riggers. Complaint Doctors Chief Complaint Comments: Vomiting and stomach pain for three days Chief Complaint:: " IT MIGHT BE MY PANCREATITIS LEVEL OR I MIGHT NEED SOME BLOOD I BEEN THROWING UP AND HURTING IN MY STOMACH AND BACK I CANT KEEP NOTHING ON MY STOMACH. 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 Family History History of Family Medical Conditions: Yes Family Medical History: Diabetes Mellitus, Cancer, [place] and Hypertension Social History Alcohol Use: None Do you use any recreational Drugs:: No infectious screening Have you traveled outside the country in the last 6 months?: No ROS Review of Systems Constitutional: See HPI Respiratoy: No Symptoms Reported Cardiovascular: No Symptoms Reported Gastrointestinal/Abdominal: See HPI Genitourinary: No Symptoms Reported Neurological: No Symptoms Reported Musculoskeletal: See HPI Integumentary: No Symptoms Reported Hematologic/Lymphatic: No Symptoms Reported Endocrine: No Symptoms Reported Psychiatric: No Symptoms Reported All Other Systems: Reviewed and Negative PE Vital Signs Vitals: Temperature 98.1 F Pulse Rate 104 Respiratory Rate 20 Blood Pressure [Left Arm] 174/95 Blood Pressure [Right Arm] 156/92 Blood Pressure 131/70 O2 Sat by Pulse Oximetry 100 General Limitations: No Limitations General Appearance: Alert, Anxious and In Distress Head Head Exam: Normal Inspection, Atraumatic and Normocephalic Eyes Eye exam: Normal Appearance, PERRL and EOMI ENT ENT Exam: Normal Exam, Normal Oropharynx and Normal External Ear Exam Neck Neck Exam: Normal Inspection, Full ROM and Trachea Midline Chest Chest Inspection: Normal Inspection and Symmetric Chest Wall Rise Respiratory Respiratory Exam: Normal Lung Sounds Bilat Respiratory Exam: Bilateral: Clear to Auscultation Cardiovascular Cardiovascular Exam: Regular Rate and Normal Rhythm Abdominal Exam Abdominal Exam: Normal Inspection, Normal Bowel Sounds and Soft Abdominal Tenderness: RUQ and RLQ Rectal Rectal Exam: Deferred Back Back Exam: Normal Inspection and Full ROM Extremeties Extremities Exam: Normal Inspection and Full ROM External Exam: Female: Deferred : Speculum Exam (Female): Deferred : Bimanual Exam (female): Deferred Neurologic Neurological Exam: Alert and Oriented X3 Psychiatric Psychiatric Exam: Agitated and Anxious Skin Skin Exam: Warm, Dry and Intact Opioid Opioid Risk Tool Total: 0 Total Score Risk Category: Low Risk Copyright: Matthew LAWTON predicting aberrant behaviors
[2019-05-17] MEDS ORDERED: ZOFRAN INJ 4 MG VIAL ONE (04:20)
[2019-05-17] MEDS ORDERED: NS 1000 ML 1,000 ML ONE (04:20)
[2019-05-17] MEDS ORDERED: DEMEROL INJ ONE ×3 (04:20→22:07)
[2019-05-17 04:32] LABS: BASOPHILS # (AUTO) 0.1 X10^3/uL (0.0-0.1); EOSINOPHILS # (AUTO) 0.1 x10^3/uL (0.0-0.2); EOSINOPHILS % (AUTO) 1.2 % (0.9-2.9); LYMPHOCYTES # (AUTO) 1.8 X10^3/uL (1.3-2.9); MEAN CORPUSCULAR HEMOGLOBIN 22.3 pg (27.0-34.0); MEAN CORPUSCULAR HGB CONC 30.3 g/dL (33.0-35.0); MEAN CORPUSCULAR VOLUME 73.6 fL (80.0-100.0); MEAN PLATELET VOLUME 8.5 fL (7.4-11.0); MONOCYTES # (AUTO) 0.4 x10^3/uL (0.3-0.8); MONOCYTES % (AUTO) 5.7 % (0.0-13.0); NEUTROPHILS # (AUTO) 3.8 x10^3/uL (2.2-4.8); NEUTROPHILS % (AUTO) 62.1 % (42.0-75.0); PLATELET COUNT 278 X10^3/uL (150.0-450.0); RED CELL DISTRIBUTION WIDTH 29.7 % (11.6-16.5); WHITE BLOOD COUNT 6.2 X10^3/uL (3.6-10.0)
[2019-05-17 04:39] LABS: ALANINE AMINOTRANSFERASE 33 Units/L (12-78); ALBUMIN 3.2 g/dL (3.4-5.0); ALKALINE PHOSPHATASE 106 Units/L (46-116); AMYLASE 195 Units/L (25-115); ASPARTATE AMINO TRANSFERASE 25 Units/L (15-37); BLOOD UREA NITROGEN 14 mg/dL (7-18); CALCIUM 8.4 mg/dL (8.5-10.1); CARBON DIOXIDE 21.6 mmol/L (21-32); CHLORIDE 104 mmol/L (98-107); LIPASE 797 Units/L (73-393); SODIUM 139 mmol/L (136-145); TOTAL PROTEIN 7.8 g/dL (6.4-8.2); eGFR NON BLACK RACES > 60 (>60)
[2019-05-17 04:40] LABS: HEMATOCRIT 15.4 % (36.0-47.0); HEMOGLOBIN 4.7 g/dL (12.0-16.0)
--- NOTE | 2019-05-17 04:57 | ED.ABDFE ---
HPI Time Seen Time Seen by Provider: 05/17/19 04:04 PCP Primary Care Physician: ASCENCION Complaint Chief Complaint:: " IT MIGHT BE MY PANCREATITIS LEVEL OR I MIGHT NEED SOME BLOOD I BEEN THROWING UP AND HURTING IN MY STOMACH AND BACK I CANT KEEP NOTHING ON MY STOMACH. 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 Family History History of Family Medical Conditions: Yes Family Medical History: Diabetes Mellitus, Cancer, [place] and Hypertension Social History Alcohol Use: None Do you use any recreational Drugs:: No infectious screening Have you traveled outside the country in the last 6 months?: No ROS Review of Systems Constitutional: Irritable Eyes: No Symptoms Reported ENTM: No Symptoms Reported Respiratoy: No Symptoms Reported Cardiovascular: No Symptoms Reported Gastrointestinal/Abdominal: See HPI and Vomiting Genitourinary: No Symptoms Reported Neurological: No Symptoms Reported Musculoskeletal: No Symptoms Reported Integumentary: No Symptoms Reported Hematologic/Lymphatic: No Symptoms Reported Endocrine: No Symptoms Reported Psychiatric: No Symptoms Reported All Other Systems: Reviewed and Negative PE Vital Signs Vitals: Temperature 98.1 F Pulse Rate 104 Respiratory Rate 18 Blood Pressure [Left Arm] 174/95 Blood Pressure [Right Arm] 156/92 Blood Pressure 131/70 O2 Sat by Pulse Oximetry 100 General Limitations: No Limitations General Appearance: Alert, Anxious and In Distress Head Head Exam: Normal Inspection, Atraumatic and Normocephalic Eyes Eye exam: PERRL and EOMI ENT ENT Exam: Normal Exam, Normal Oropharynx, Normal External Ear Exam, Mucous Membranes Moist and TM's Normal Bilaterally Neck Neck Exam: Normal Inspection and Full ROM Chest Chest Inspection: Normal Inspection and Symmetric Chest Wall Rise Respiratory Respiratory Exam: Normal Lung Sounds Bilat Respiratory Exam: Bilateral: Clear to Auscultation Cardiovascular Cardiovascular Exam: Regular Rate and Normal Rhythm Abdominal Exam Abdominal Exam: Normal Inspection, Tenderness and Hyperactive Bowel Sounds Abdominal Tenderness: Diffuse Rectal Rectal Exam: Deferred Back Back Exam: Normal Inspection and Tenderness Extremeties Extremities Exam: Normal Inspection and Full ROM External Exam: Female: Deferred : Speculum Exam (Female): Deferred : Bimanual Exam (female): Deferred Neurologic Neurological Exam: Alert, Oriented X3 and CN II-XII Intact Psychiatric Psychiatric Exam: Normal Affect and Normal Mood Skin Skin Exam: Warm, Dry and Intact COURSE Treatment Treatment: Morphine 4mg IV Reevaluation 1st: Improved Consultation Called: 05:00 Consultation Comments: Dr. Damian agreed to admit to his service for further treatment ROR Labs Reviewed Laboratory Results Reviewed?: Yes Result Diagrams: 05/17/19 04:15 05/17/19 04:15 Laboratory: WBC 6.2 X10^3/uL (3.6-10.0) 05/17/19 04:15 RBC 2.10 X10^6/uL (3.5-5.4) L 05/17/19 04:15 Hgb 4.7 g/dL (12.0-16.0) L* 05/17/19 04:15 Hct 15.4 % (36.0-47.0) L* 05/17/19 04:15 MCV 73.6 fL (80.0-100.0) L 05/17/19 04:15 MCH 22.3 pg (27.0-34.0) L 05/17/19 04:15 MCHC 30.3 g/dL (33.0-35.0) L 05/17/19 04:15 RDW 29.7 % (11.6-16.5) H 05/17/19 04:15 Plt Count 278 X10^3/uL (150.0-450.0) 05/17/19 04:15 MPV 8.5 fL (7.4-11.0) 05/17/19 04:15 Neut % (Auto) 62.1 % (42.0-75.0) 05/17/19 04:15 Lymph % (Auto) 30.0 % (21.0-51.0) 05/17/19 04:15 [place] % (Auto) 5.7 % (0.0-13.0) 05/17/19 04:15 Eos % (Auto) 1.2 % (0.9-2.9) 05/17/19 04:15 Baso % (Auto) 1.0 % (0.2-1.0) 05/17/19 04:15 Neut # (Auto) 3.8 x10^3/uL (2.2-4.8) 05/17/19 04:15 Lymph # (Auto) 1.8 X10^3/uL (1.3-2.9) 05/17/19 04:15 [place] # (Auto) 0.4 x10^3/uL (0.3-0.8) 05/17/19 04:15 Eos # (Auto) 0.1 x10^3/uL (0.0-0.2) 05/17/19 04:15 Baso # (Auto) 0.1 X10^3/uL (0.0-0.1) 05/17/19 04:15 Absolute Nucleated RBC 1.0 /100WBC 05/17/19 04:15 Sodium 139 mmol/L (136-145) 05/17/19 04:15 Corrected Sodium TNP 05/17/19 04:15 Potassium 3.3 mmol/L (3.5-5.1) L 05/17/19 04:15 Chloride 104 mmol/L (98-107) 05/17/19 04:15 Carbon Dioxide 21.6 mmol/L (21-32) 05/17/19 04:15 BUN 14 mg/dL (7-18) 05/17/19 04:15 Creatinine 0.80 mg/dL (0.55-1.02) 05/17/19 04:15 Est GFR (MDRD) Af Amer > 60 (>60) 05/17/19 04:15 Est GFR (MDRD) Non-Af > 60 (>60) 05/17/19 04:15 Glucose 107 mg/dL (65-99) H 05/17/19 04:15 Calcium 8.4 mg/dL (8.5-10.1) L 05/17/19 04:15 Corrected Calcium 9.0 mg/dL (8.5-10.1) 05/17/19 04:15 Total Bilirubin 0.10 mg/dL (0.2-1.0) L 05/17/19 04:15 AST 25 Units/L (15-37) 05/17/19 04:15 ALT 33 Units/L (12-78) 05/17/19 04:15 Alkaline Phosphatase 106 Units/L (46-116) 05/17/19 04:15 C-Reactive Protein < 0.50 mg/L (0-3.0) 05/17/19 04:15 Total Protein 7.8 g/dL (6.4-8.2) 05/17/19 04:15 Albumin 3.2 g/dL (3.4-5.0) L 05/17/19 04:15 Globulin 4.6 g/dL (2.5-4.5) H 05/17/19 04:15 Albumin/Globulin Ratio 0.7 Ratio (1.1-2.1) L 05/17/19 04:15 Amylase 195 Units/L (25-115) H 05/17/19 04:15 Lipase 797 Units/L (73-393) H 05/17/19 04:15 Opioid Opioid Risk Tool Total: 0 Total Score Risk Category: Low Risk Copyright: Matthew LAWTON predicting aberrant behaviors
[2019-05-17] MEDS ORDERED: NS 500 ML IV 500 ML IV ONE (05:20)
[2019-05-17] MEDS ORDERED: TYLENOL 325 MG TAB PO PRN (05:20)
[2019-05-17] MEDS ORDERED: BENADRYL INJ 50 MG VIAL IVP PRN (05:20)
--- NOTE | 2019-05-17 05:23 | RAD ---
Examination: Abdomen series with PA chest, three views History: Abdominal pain Comparison 07/22/2018 Findings: PA upright chest is unremarkable. Supine and erect views of abdomen demonstrate slight nonobstructive gaseous distention of bowel. There is no evidence for mass, ascites, visceral enlargement or pathologic calcification. No free air is identified. Surgical clips right lower quadrant. Impression: No significant chest or abdominal abnormality demonstrated. Slight nonobstructive intestinal distention. Reported By:
[2019-05-17 05:24] LABS: ANISOCYTOSIS 3+; HYPOCHROMASIA 3+; PLATELET MORPHOLOGY COMMENT NORMAL (NORMAL)
[2019-05-17] MEDS ORDERED: KLOR-CON PO PRN (05:39)
[2019-05-17] MEDS ORDERED: POTASSIUM CHL 40 MEQ/NS 0.45% 500 ML IV PRN (05:39)
[2019-05-17] MEDS ORDERED: MICRO K EXTEN CAP 10 MEQ PO PRN (05:39)
[2019-05-17] MEDS ORDERED: K-DUR TAB 20 MEQ PO PRN (05:39)
[2019-05-17] MEDS ORDERED: POTASSIUM CHL 60 MEQ/NS 0.45% 500 ML IV PRN (05:39)
[2019-05-17] MEDS ORDERED: POTASSIUM CHLORIDE LIQ 20 MEQ UDC PO PRN (05:39)
[2019-05-17] MEDS: PHENERGAN TAB 25 MG PO PRN ×2 (09:28→18:02)
[2019-05-17] MEDS ORDERED: DIPRIVAN VIAL ONE (10:30)
[2019-05-17] MEDS ORDERED: DEMEROL INJ IM ONE ×2 (10:54)
--- NOTE | 2019-05-17 11:04 | DR.H&P ---
H&P - History & Physical for Day of: H&P Date: 05/17/19 - Chief Complaint Chief Complaint: IT MIGHT BE MY PANCREATITIS LEVEL OR I MIGHT NEED SOME BLOOD I BEEN THROWING UP AND HURTING IN MY STOMACH AND BACK I CANT KEEP NOTHING ON MY STOMACH. I BEEN LIKE THIS SINCE SUNDAY" - History of Present Illness History of Present Illness: 43BF ER ADMISSION WITH CO ABDOMINAL PAIN, WEAKNESS. PT HAS PMH OF CHRONIC ANEMIA AND CHRONIC PANCREATITIS. PT HGB4.7 ON ADMISSION, AMYLASE 195, LIPASE 797, K 3.3. PT ADMITTED TO ICU FOR TREATMENT OF ACUTE ON CHRONIC ILLNESS. - Past Medical History Past Medical History: Anemia, Arthritis, GERD, Hypertension Additional Medical History: Hiatal Hernia, Chronic Pancreatitis - Past Surgical History Surgical History: Bowel Resection, Hysterectomy, Other Additional Surgical History: Hernia Repair - Family History Family Medical History: Diabetes Mellitus, Cancer, Coronary Artery Disease, Hypertension - Social History Does patient currently use any type of tobacco product: Yes Have you used tobacco products in the last 12 months: Yes Type of Tobacco Use: Cigarettes How many years tobacco product used: 20 Does any household member use tobacco: Yes Alcohol Use: None Drug Use: Prescription Drugs - Medications Home Medications: hydromorphone [From Dilaudid] Allergy (Verified 01/10/19 11:34) morphine Allergy (Verified 01/10/19 11:34) CONTINUE taking the following medications alprazolam 0.5 mg PO HS 05/17/19 [History] cyproheptadine 1 tsp PO TID 05/17/19 [History] gabapentin 800 mg PO TID 05/17/19 [History] hydrocodone-acetaminophen 1 tab PO TID PRN 05/17/19 [History] ibuprofen 600 mg PO DAILY PRN 05/17/19 [History] imkeob-pbyqvqry-rxmbahz [Creon] 12,000 units PO BID 05/17/19 [History] metoprolol tartrate 100 mg PO BID 05/17/19 [History] mupirocin 1 applic TOPICAL BID 05/17/19 [History] omeprazole 20 mg PO BID 05/17/19 [History] paroxetine HCl 20 mg PO DAILY 05/17/19 [History] potassium chloride 10 meq PO DAILY 05/17/19 [History] sucralfate 1 g PO BID 05/17/19 [History] - Review of Systems Constitutional: Weakness, Malaise Eyes: No Symptoms Reported ENT: No Symptoms Reported Respiratory: SOB with Excertion Cardiovascular: Palpitations, Light Headedness Gastrointestinal: Nausea, Vomiting, Abdominal Pain Genitourinary: No Symptoms Reported Musculoskeletal: Back Pain, Leg Pain Skin: No Symptoms Reported Neurological: Weakness - Physical Exam Vital Signs: Temperature 99.3 F Pulse Rate [Left Brachial] 104 Pulse Rate 91 Respiratory Rate 24 Blood Pressure [Left Arm] 153/79 Blood Pressure [Right Arm] 156/92 Blood Pressure 104/56 O2 Sat by Pulse Oximetry 100 Oriented: Normal Eyes: Normal Ear: Normal Nose: Normal Throat: Normal Respiratory: RLL Diminished, LLL Diminished Cardiovascular: Tachycardia : Normal Auscultation: Bowel Sounds: Increased Tenderness: Diffuse, RUQ, LUQ, Epigastric Skin: Decreased Turgur Musculoskeletal: Back:Lumbar Psychiatric: Anxiety Affect: Anxious Speech Pattern: Clear, Appropriate - Assessment/Plan (1) Anemia Qualifiers: Anemia type: iron deficiency Status: Acute Plan: ADMIT, ICU, TYPE CROSSMATCH TRANSFUSE 2 UNITS PRBC, SERIAL H&H. ANEMIA PANEL, IRON REPLACEMENT THERAPY, OCCULT STOOL. ABD XRAY ON ADMISSION, BP AND CARDIAC MONITORING. PAIN AND NAUSEA CONTROL, SUPPLEMENTAL O2. VERIFY HOME MEDICATION, IV PROTONIX (2) Pancreatitis Qualifiers: Chronicity: chronic Pancreatitis type: unspecified pancreatitis type Qualified Code(s): K86.1 - Other chronic pancreatitis Status: Acute (3) Hypertension Qualifiers: Hypertension type: essential hypertension Qualified Code(s): I10 - Essential (primary) hypertension Status: Chronic Plan: HOLD ANTI HYPERTENSIVES THIS AM (4) PUD (peptic ulcer disease) Status: Acute (5) Abdominal pain Qualifiers: Abdominal location: generalized Qualified Code(s): R10.84 - Generalized abdominal pain Status: Acute (6) Pancreatitis, chronic Qualifiers: Pancreatitis type: unspecified pancreatitis type Qualified Code(s): K86.1 - Other chronic pancreatitis Status: Acute - Allergies Allergies/Adverse Reactions: Allergies Allergy/AdvReac Type Severity Reaction Status Date / Time hydromorphone [From Dilaudid] Allergy Verified 01/10/19 11:34 morphine Allergy Verified 01/10/19 11:34
[2019-05-17] MEDS ORDERED: NS 100 ML IV 100 ML with VENOFER 400 MG IV NR ×2 (13:30)
[2019-05-17] MEDS ORDERED: ZESTRIL TAB 20 MG ONE (13:48)
[2019-05-17] MEDS: HEMOCYTE-PLUS PO SCH (14:12)
[2019-05-17] MEDS: ZESTRIL TAB 20 MG PO SCH (14:12)
[2019-05-17] MEDS ORDERED: STERILE WATER IRRIGATION ONE (15:22)
[2019-05-17] MEDS ORDERED: DIPRIVAN VIAL 20 ML ONE (16:40)
[2019-05-17] MEDS: NORCO 10/325 TAB PO PRN (18:02)
[2019-05-17] MEDS: CARAFATE PO SCH ×2 (18:04→20:56)
[2019-05-17 18:43] LABS: HEMATOCRIT 22.5 % (36.0-47.0); HEMOGLOBIN 7.4 g/dL (12.0-16.0)
[2019-05-17] MEDS ORDERED: NS 500 ML IV 500 ML ONE ×2 (18:53→23:31)
[2019-05-17] MEDS: MAGNESIUM SULFATE 1 GRAM/100 mL PREMIX 1 GM/100 ML BAG IV PRN ×2 (20:38→22:02)
[2019-05-17] MEDS: PEPCID 20 MG IV PREMIX* 20 MG/50 ML BAG IV SCH (20:50)
[2019-05-17] MEDS: PROTONIX TAB 40 MG PO SCH (20:57)
[2019-05-17] MEDS ORDERED: PROTONIX TAB 40 MG PO SCH (21:00)
[2019-05-17] MEDS ORDERED: PROTONIX INJ 40 MG VIAL IVP SCH (21:00)
[2019-05-17] MEDS: DEMEROL INJ IVP PRN (22:15)
[2019-05-18] MEDS: NORCO 10/325 TAB PO PRN ×3 (02:20→18:49)
[2019-05-18] MEDS: K-RIDER 10 MEQ/NS 100 ML 10 MEQ/100 ML BAG IV PRN ×4 (02:44→06:25)
[2019-05-18] MEDS: CARAFATE PO SCH ×4 (06:22→20:32)
[2019-05-18] MEDS: DEMEROL INJ IVP PRN ×3 (06:22→21:24)
[2019-05-18] MEDS: PHENERGAN TAB 25 MG PO PRN ×2 (06:23→14:45)
[2019-05-18 07:24] LABS: BASOPHILS # (AUTO) 0.1 X10^3/uL (0.0-0.1); BASOPHILS % (AUTO) 0.9 % (0.2-1.0); EOSINOPHILS # (AUTO) 0.3 x10^3/uL (0.0-0.2); EOSINOPHILS % (AUTO) 4.7 % (0.9-2.9); HEMATOCRIT 26.7 % (36.0-47.0); HEMOGLOBIN 8.8 g/dL (12.0-16.0); LYMPHOCYTES # (AUTO) 1.2 X10^3/uL (1.3-2.9); LYMPHOCYTES % (AUTO) 17.5 % (21.0-51.0); MEAN CORPUSCULAR HEMOGLOBIN 25.5 pg (27.0-34.0); MEAN CORPUSCULAR VOLUME 77.2 fL (80.0-100.0); MEAN PLATELET VOLUME 8.3 fL (7.4-11.0); MONOCYTES # (AUTO) 0.4 x10^3/uL (0.3-0.8); MONOCYTES % (AUTO) 5.9 % (0.0-13.0); NEUTROPHILS # (AUTO) 4.9 x10^3/uL (2.2-4.8); PLATELET COUNT 278 X10^3/uL (150.0-450.0); RED BLOOD COUNT 3.46 X10^6/uL (3.5-5.4); RED CELL DISTRIBUTION WIDTH 24.4 % (11.6-16.5); WHITE BLOOD COUNT 6.8 X10^3/uL (3.6-10.0)
[2019-05-18 07:33] LABS: ALANINE AMINOTRANSFERASE 28 Units/L (12-78); ALBUMIN 2.6 g/dL (3.4-5.0); ALKALINE PHOSPHATASE 96 Units/L (46-116); AMYLASE 190 Units/L (25-115); ASPARTATE AMINO TRANSFERASE 25 Units/L (15-37); BLOOD UREA NITROGEN 6 mg/dL (7-18); CALCIUM 8.3 mg/dL (8.5-10.1); CHLORIDE 108 mmol/L (98-107); COR CA(FOR HYPOALB) 9.4 mg/dL (8.5-10.1); CREATININE 0.45 mg/dL (0.55-1.02); LIPASE 1245 Units/L (73-393); SODIUM 138 mmol/L (136-145); TOTAL PROTEIN 6.6 g/dL (6.4-8.2); eGFR NON BLACK RACES > 60 (>60)
[2019-05-18 07:54] LABS: ANISOCYTOSIS 3+; BAND NEUTROPHILS % 2 % (0-10); PLATELET MORPHOLOGY COMMENT NORMAL (NORMAL)
[2019-05-18] MEDS ORDERED: ZESTRIL TAB 20 MG ONE (09:29)
[2019-05-18] MEDS: HEMOCYTE-PLUS PO SCH (09:39)
[2019-05-18] MEDS: ZESTRIL TAB 20 MG PO SCH (09:39)
[2019-05-18] MEDS: PROTONIX TAB 40 MG PO SCH ×2 (09:39→20:31)
[2019-05-18] MEDS: PEPCID 20 MG IV PREMIX* 20 MG/50 ML BAG IV SCH ×2 (09:40→20:32)
[2019-05-18] MEDS ORDERED: AMBIEN PO PRN (22:25)
[2019-05-19 05:06] LABS: ALANINE AMINOTRANSFERASE 26 Units/L (12-78); ALBUMIN 2.7 g/dL (3.4-5.0); ALKALINE PHOSPHATASE 108 Units/L (46-116); ASPARTATE AMINO TRANSFERASE 20 Units/L (15-37); BLOOD UREA NITROGEN 10 mg/dL (7-18); CALCIUM 8.5 mg/dL (8.5-10.1); CARBON DIOXIDE 26.1 mmol/L (21-32); CHLORIDE 107 mmol/L (98-107); COR CA(FOR HYPOALB) 9.5 mg/dL (8.5-10.1); CREATININE 0.51 mg/dL (0.55-1.02); SODIUM 140 mmol/L (136-145); TOTAL PROTEIN 6.9 g/dL (6.4-8.2); eGFR NON BLACK RACES > 60 (>60)
[2019-05-19 05:16] LABS: BASOPHILS # (AUTO) 0.1 X10^3/uL (0.0-0.1); EOSINOPHILS # (AUTO) 0.4 x10^3/uL (0.0-0.2); EOSINOPHILS % (AUTO) 6.1 % (0.9-2.9); HEMATOCRIT 28.2 % (36.0-47.0); HEMOGLOBIN 9.3 g/dL (12.0-16.0); LYMPHOCYTES # (AUTO) 1.7 X10^3/uL (1.3-2.9); LYMPHOCYTES % (AUTO) 25.6 % (21.0-51.0); MEAN CORPUSCULAR HEMOGLOBIN 25.5 pg (27.0-34.0); MEAN CORPUSCULAR HGB CONC 32.8 g/dL (33.0-35.0); MEAN CORPUSCULAR VOLUME 77.9 fL (80.0-100.0); MEAN PLATELET VOLUME 8.4 fL (7.4-11.0); MONOCYTES # (AUTO) 0.5 x10^3/uL (0.3-0.8); MONOCYTES % (AUTO) 7.6 % (0.0-13.0); NEUTROPHILS % (AUTO) 59.7 % (42.0-75.0); PLATELET COUNT 337 X10^3/uL (150.0-450.0); RED BLOOD COUNT 3.62 X10^6/uL (3.5-5.4); RED CELL DISTRIBUTION WIDTH 25.8 % (11.6-16.5)
[2019-05-19] MEDS: NORCO 10/325 TAB PO PRN (05:18)
[2019-05-19] MEDS: CARAFATE PO SCH ×2 (05:35→11:30)
[2019-05-19 06:34] LABS: WHITE BLOOD COUNT 7.2 X10^3/uL (3.6-10.0)
[2019-05-19 06:35] LABS: GIANT PLATELET RARE
[2019-05-19 06:36] LABS: ANISOCYTOSIS 3+; HYPOCHROMASIA 1+; PLATELET MORPHOLOGY COMMENT NORMAL (NORMAL)
[2019-05-19] MEDS ORDERED: DEMEROL INJ IVP PRN (07:50)
[2019-05-19] MEDS ORDERED: ZESTRIL TAB 20 MG ONE (08:51)
[2019-05-19] MEDS: HEMOCYTE-PLUS PO SCH (08:54)
[2019-05-19] MEDS: PEPCID 20 MG IV PREMIX* 20 MG/50 ML BAG IV SCH (08:54)
[2019-05-19] MEDS: PROTONIX TAB 40 MG PO SCH (08:54)
[2019-05-19] MEDS: ZESTRIL TAB 20 MG PO SCH (08:56)
[2019-05-19] MEDS ORDERED: NORCO 5/325 MG TAB PO ONE (12:12)
[2019-05-19 13:41] VITALS: BP 174/90
== END 2019-05-19 14:00 | disposition home or self-care (01) | DRG 812 ==
LOC: ER 03:40 → ICU 05:10
PROVIDERS: ADMIT Internal Medicine; ATTEND Internal Medicine
DX: R10.84 Generalized abdominal pain; E87.6 Hypokalemia; I10 Essential (primary) hypertension; K44.9 Diaphragmatic hernia without obstruction or gangrene; K86.1 Other chronic pancreatitis; K25.9 Gastric ulcer, unspecified as acute or chronic, without hemorrhage or perforation; K20.8 Other esophagitis; D50.8 Other iron deficiency anemias; K29.60 Other gastritis without bleeding; K21.9 Gastro-esophageal reflux disease without esophagitis
CPT/HCPCS: 36415; 36430; 74022; 80053; 82150; 82607; 82728; 82746; 83540; 83690; 83735; 84466; 85014; 85018; 85025; 86140; 86850; 86900; 86901; 86922; 96365; 96374; 96375; 99285; A4217; A4222; P9016; Q0169; S0028; J1200; J1756; J2175; J2405; J2704; J3475; J3480; J3490; J7030; J7040; J7050

== ENCOUNTER 2019-10-24 09:43 | Inpatient (IN) ==
[2019-10-24 09:49] VITALS: BMI 21.5
[2019-10-24] MEDS ORDERED: NS 500 ML IV 1,000 ML IV ONE (10:02)
--- NOTE | 2019-10-24 10:07 | DR.GENAD ---
HPI - PCP Primary Care Physician: Eric - Complaint/Symptoms Chief Complaint:: "2 days ago I woke up and my left arm was swollen. It has gotten worse. Today I woke up and I can't hardly talk. I feel lightheaded like I'm going to pass out." Hx of chronic pain, DVT in leg, anemia and pancreatitis - Nurses notes reviewed Nurses Notes Review: Yes - Source History Provided: Patient - Mode of Arrival Mode of Arrival: Ambulatory - Timing Onset of Chief Complaint: 10/22/19 Came on: Gradually - Duration Duration: Constant How lon Duration: Days - Location Location: left arm - Severity Severity: Moderate - Modifying Factors Worsens:: movement - Associated Signs and Symptoms Associated Signs and Symptoms: fever PMH - PMH Past Medical History: Yes Past Medical History: Hypertension Past Surgical History: Yes Surgical History: Hysterectomy, Other Past Surgical History Comment: Ulcer removed. - Family History History of Family Medical Conditions: Yes Family Medical History: Diabetes Mellitus, Hypertension - Social History Does patient currently use any type of tobacco product: No Have you used tobacco products in the last 12 months: No Type of Tobacco Use: None Does any household member use tobacco: Yes Alcohol Use: None Do you use any recreational Drugs:: No Lives With: Alone Lives Where: Home - infectious screening In the last 2 months have you had wt loss of >10#?: NO Have you had fever, night sweats or hemotysis?: No Have you traveled outside the country in the last 6 months?: No Isolation: Standard PE - Vital Signs Vitals: Temperature 101.4 F Pulse Rate 90 Respiratory Rate 18 Blood Pressure [Left Arm] 140/83 Blood Pressure 178/94 O2 Sat by Pulse Oximetry 99 Course - Consultation Called: 14:55 Call Returned: 14:55 Consultation Comments: Case discussed, admit for antibiotics ROR - Labs Reviewed Result Diagrams: 10/24/19 10:16 10/24/19 10:16 - XRAY XRAY Interpreted by: Radiologist XRAY Findings: CT Bran: no acute findings - EKG Rate: 107 Hubbard: Normal Rhythm: ST Block: None Hypertrophy: None ST: Normal - Labs Reviewed Laboratory: WBC 16.5 X10^3/uL (3.6-10.0) H 10/24/19 10:16 RBC 3.55 X10^6/uL (3.5-5.4) 10/24/19 10:16 Hgb 9.6 g/dL (12.0-16.0) L 10/24/19 10:16 Hct 30.8 % (36.0-47.0) L 10/24/19 10:16 MCV 86.7 fL (80.0-100.0) 10/24/19 10:16 MCH 27.1 pg (27.0-34.0) 10/24/19 10:16 MCHC 31.3 g/dL (33.0-35.0) L 10/24/19 10:16 RDW 16.3 % (11.6-16.5) 10/24/19 10:16 Plt Count 241 X10^3/uL (150.0-450.0) 10/24/19 10:16 Plt Count Comment Adequate (ADEQUATE) 10/24/19 10:16 MPV 9.9 fL (7.4-11.0) 10/24/19 10:16 Neut % (Auto) 91.4 % (42.0-75.0) H 10/24/19 10:16 Lymph % (Auto) 3.5 % (21.0-51.0) L 10/24/19 10:16 [place] % (Auto) 4.3 % (0.0-13.0) 10/24/19 10:16 Eos % (Auto) 0.6 % (0.9-2.9) L 10/24/19 10:16 Baso % (Auto) 0.2 % (0.2-1.0) 10/24/19 10:16 Neut # (Auto) 15.0 x10^3/uL (2.2-4.8) H 10/24/19 10:16 Lymph # (Auto) 0.6 X10^3/uL (1.3-2.9) L 10/24/19 10:16 [place] # (Auto) 0.7 x10^3/uL (0.3-0.8) 10/24/19 10:16 Eos # (Auto) 0.1 x10^3/uL (0.0-0.2) 10/24/19 10:16 Baso # (Auto) 0.0 X10^3/uL (0.0-0.1) 10/24/19 10:16 Absolute Nucleated RBC 0.0 /100WBC 10/24/19 10:16 Total Counted 100 10/24/19 10:16 Neutrophils % (Manual) 91 % (39-76) H 10/24/19 10:16 Lymphocytes % (Manual) 8 % (13-43) L 10/24/19 10:16 Eosinophils % (Manual) 1 % (0-6) 10/24/19 10:16 Plt Morphology Comment Normal (NORMAL) 10/24/19 10:16 RBC Morphology Normal (NORMAL) 10/24/19 10:16 Sodium 139 mmol/L (136-145) 10/24/19 10:16 Corrected Sodium 139 mmol/L (136-145) 10/24/19 10:16 Potassium 4.2 mmol/L (3.5-5.1) 10/24/19 10:16 Chloride 104 mmol/L (98-107) 10/24/19 10:16 Carbon Dioxide 27.4 mmol/L (21-32) 10/24/19 10:16 BUN 5 mg/dL (7-18) L 10/24/19 10:16 Creatinine 0.52 mg/dL (0.55-1.02) L 10/24/19 10:16 Est GFR (MDRD) Af Amer > 60 (>60) 10/24/19 10:16 Est GFR (MDRD) Non-Af > 60 (>60) 10/24/19 10:16 Glucose 112 mg/dL (65-99) H 10/24/19 10:16 Lactic Acid 0.9 mmol/L (0.4-2.0) 10/24/19 11:06 Calcium 8.6 mg/dL (8.5-10.1) 10/24/19 10:16 Corrected Calcium 9.7 mg/dL (8.5-10.1) 10/24/19 10:16 Total Bilirubin 0.10 mg/dL (0.2-1.0) L 10/24/19 10:16 AST 21 Units/L (15-37) 10/24/19 10:16 ALT 20 Units/L (12-78) 10/24/19 10:16 Alkaline Phosphatase 108 Units/L (46-116) 10/24/19 10:16 Total Protein 7.2 g/dL (6.4-8.2) 10/24/19 10:16 Albumin 2.6 g/dL (3.4-5.0) L 10/24/19 10:16 Globulin 4.6 g/dL (2.5-4.5) H 10/24/19 10:16 Albumin/Globulin Ratio 0.6 Ratio (1.1-2.1) L 10/24/19 10:16 Lipase 65 Units/L (73-393) L 10/24/19 10:20 Specimen Type Clean catch urine 10/24/19 12:29 Urine Color Yellow (YELLOW) 10/24/19 12:29 Urine Appearance Clear (CLEAR) 10/24/19 12:29 Urine pH 6.5 (5.0 - 8.0) 10/24/19 12:29 Ur Specific [place] 1.015 (1.000-1.030) 10/24/19 12:29 Urine Protein Negative (NEGATIVE) 10/24/19 12:29 Urine Glucose (UA) Negative (NEGATIVE) 10/24/19 12:29 Urine Ketones Negative (NEGATIVE) 10/24/19 12:29 Urine Occult Blood Negative (NEGATIVE) 10/24/19 12:29 Urine Nitrite Negative (NEGATIVE) 10/24/19 12:29 Urine Bilirubin Negative (NEGATIVE) 10/24/19 12:29 Urine Urobilinogen Normal (NORMAL) 10/24/19 12:29 Ur Leukocyte Esterase Negative (NEGATIVE) 10/24/19 12:29 Urine Opiates Screen Negative (NEG=<300) 10/24/19 12:29 Urine Methadone Screen Negative (NEG=<300) 10/24/19 12:29 Ur Barbiturates Screen Negative (NEG=<200) 10/24/19 12:29 Ur Phencyclidine Scrn Negative (NEG=<25) 10/24/19 12:29 Ur Amphetamines Screen Positive (NEG=<1000) A 10/24/19 12:29 U Benzodiazepines Scrn Positive (NEG=<200) A 10/24/19 12:29 Urine Cocaine Screen Negative (NEG=<300) 10/24/19 12:29 U Marijuana (THC) Screen Negative (NEG=<50) 10/24/19 12:29 Opioid - Opioid Risk Tool Age (Landon box if 16-45): Yes Total: 1 Total Score Risk Category: Low Risk - Diagnosis Discharge Problem: Cellulitis of arm, left - Discharge Plan Disposition: 09 ADMITTED INPATIENT Condition: Stable
[2019-10-24] MEDS ORDERED: NS 1000 ML 1,000 ML IV ONE (10:08)
[2019-10-24] MEDS ORDERED: LABETALOL HCL IVP ONE (10:10)
[2019-10-24] MEDS ORDERED: NS 1000 ML 1,000 ML ONE (10:11)
[2019-10-24] MEDS: NS 1000 ML 1,000 ML IV ONE (10:16)
[2019-10-24] MEDS ORDERED: ZOFRAN INJ 4 MG VIAL ONE (10:19)
[2019-10-24] MEDS ORDERED: TORADOL 30 MG VIAL ONE (10:20)
--- NOTE | 2019-10-24 10:22 | RAD ---
HISTORYFever and left arm swellingSTUDYPortable AP chestCOMPARISONJanuary 2017FINDINGSThere thin linear horizontal densities at the left lung base not present on prior exam. The right lung is clear. The heart and mediastinum are unremarkable. There is no edema or effusion. No bony abnormality is demonstrated.IMPRESSIONLinear plate atelectasis at the left lung base.Electronically signed by: MYRIAM JEAN-BAPTISTE (Oct 24, 2019 10:20:18)
[2019-10-24 10:27] LABS: BASOPHILS % (AUTO) 0.2 % (0.2-1.0); EOSINOPHILS # (AUTO) 0.1 x10^3/uL (0.0-0.2); EOSINOPHILS % (AUTO) 0.6 % (0.9-2.9); HEMATOCRIT 30.8 % (36.0-47.0); HEMOGLOBIN 9.6 g/dL (12.0-16.0); LYMPHOCYTES # (AUTO) 0.6 X10^3/uL (1.3-2.9); LYMPHOCYTES % (AUTO) 3.5 % (21.0-51.0); MEAN CORPUSCULAR HEMOGLOBIN 27.1 pg (27.0-34.0); MEAN CORPUSCULAR HGB CONC 31.3 g/dL (33.0-35.0); MEAN CORPUSCULAR VOLUME 86.7 fL (80.0-100.0); MEAN PLATELET VOLUME 9.9 fL (7.4-11.0); MONOCYTES # (AUTO) 0.7 x10^3/uL (0.3-0.8); MONOCYTES % (AUTO) 4.3 % (0.0-13.0); NEUTROPHILS % (AUTO) 91.4 % (42.0-75.0); PLATELET COUNT 241 X10^3/uL (150.0-450.0); RED BLOOD COUNT 3.55 X10^6/uL (3.5-5.4); RED CELL DISTRIBUTION WIDTH 16.3 % (11.6-16.5); WHITE BLOOD COUNT 16.5 X10^3/uL (3.6-10.0)
[2019-10-24] MEDS ORDERED: TORADOL 30 MG VIAL IVP ONE (10:30)
[2019-10-24] MEDS ORDERED: ZOFRAN INJ 4 MG VIAL IVP ONE (10:30)
[2019-10-24 10:39] LABS: ALANINE AMINOTRANSFERASE 20 Units/L (12-78); ALBUMIN 2.6 g/dL (3.4-5.0); ALKALINE PHOSPHATASE 108 Units/L (46-116); ASPARTATE AMINO TRANSFERASE 21 Units/L (15-37); BLOOD UREA NITROGEN 5 mg/dL (7-18); CALCIUM 8.6 mg/dL (8.5-10.1); CARBON DIOXIDE 27.4 mmol/L (21-32); CHLORIDE 104 mmol/L (98-107); COR CA(FOR HYPOALB) 9.7 mg/dL (8.5-10.1); COR NA(FOR HYPERGLY) 139 mmol/L (136-145); CREATININE 0.52 mg/dL (0.55-1.02); SODIUM 139 mmol/L (136-145); TOTAL PROTEIN 7.2 g/dL (6.4-8.2); eGFR NON BLACK RACES > 60 (>60)
[2019-10-24 11:15] LABS: PLATELET MORPHOLOGY COMMENT NORMAL (NORMAL)
--- NOTE | 2019-10-24 11:47 | CT ---
HISTORY: Mental status changeStudy: CT brain without contrastComparison: NoneTechnique:Multiple axial images of the brain were obtained from the skull base to the vertex without administration of IV contrast. Automated dose control was utilized.Findings:The ventricles are normal. No intracranial hemorrhage or edema is seen. There is no extra-axial fluid collection or mass. The bones are intact. The midline structures unremarkable.IMPRESSION:No abnormality seen.Electronically signed by: AIXA THOMAS (Oct 24, 2019 11:46:36)
[2019-10-24] MEDS ORDERED: ROCEPHIN VIAL 1 GRAM 1 G in NS 100 ML IV + SPIKE MINIBAG* 100 ML IV ONE (11:57)
[2019-10-24 12:41] LABS: BILIRUBIN,URINE NEGATIVE (NEGATIVE); BLOOD/HEMOGLOBIN,URINE NEGATIVE (NEGATIVE); GLUCOSE, URINE NEGATIVE (NEGATIVE); KETONES,URINE NEGATIVE (NEGATIVE); LEUKOCYTE ESTERASE ,URINE NEGATIVE (NEGATIVE); NITRITES,URINE NEGATIVE (NEGATIVE); PH,URINE 6.5 (5.0 - 8.0); PROTEIN,URINE NEGATIVE (NEGATIVE); UROBILINOGEN,URINE NORMAL (NORMAL)
[2019-10-24 12:45] LABS: APPEARANCE,URINE CLEAR (CLEAR); COLOR,URINE YELLOW (YELLOW)
[2019-10-24] MEDS ORDERED: NORMODYNE INJ 100 MG VIAL ONE (13:08)
[2019-10-24] MEDS ORDERED: ROCEPHIN VIAL 1 GRAM ONE (13:35)
[2019-10-24] MEDS ORDERED: DEMEROL INJ ONE (13:36)
[2019-10-24] MEDS ORDERED: DEMEROL INJ IVP ONE (13:36)
--- NOTE | 2019-10-24 14:35 | VAS ---
UPPER EXT VENOUS, UNILATERALHISTORY: SEVERE LUE EDEMA AND PAINComparison:NoneTECHNIQUE: Multiple tong scale and color flow Doppler images of the deep venous system were obtained of the left upper extremity.FINDINGS:The deep venous system of the left upper extremity were evaluated from the level of the internal jugular vein through the antecubital fossa. Normal color flow and augmentation can be observed .In addition, normal compression is seen throughout the deep venous system.IMPRESSION:1. Negative for DVT.Electronically signed by: TARYN CORONEL (Oct 24, 2019 14:33:27)
[2019-10-24] MEDS ORDERED: MOTRIN TAB 800 MG PO ONE (15:13)
[2019-10-24] MEDS: MOTRIN TAB 800 MG PO PRN (15:15)
[2019-10-24] MEDS: ROCEPHIN VIAL 1 GRAM 1 G in NS 100 ML IV + SPIKE MINIBAG* 100 ML IV SCH (15:18)
[2019-10-24] MEDS: XOPENEX 1.25 MG/3 ML NEBULE NEB SCH ×2 (16:55→20:50)
[2019-10-24] MEDS ORDERED: ULTRAM ONE (17:46)
[2019-10-24] MEDS: ULTRAM PO PRN (17:52)
[2019-10-25] MEDS: MORPHINE SULFATE INJ 2 MG INJ IVP PRN ×5 (02:00→23:33)
[2019-10-25] MEDS: XOPENEX 1.25 MG/3 ML NEBULE NEB SCH ×4 (05:42→21:16)
[2019-10-25 05:58] LABS: BASOPHILS # (AUTO) 0.1 X10^3/uL (0.0-0.1); BASOPHILS % (AUTO) 0.4 % (0.2-1.0); EOSINOPHILS # (AUTO) 0.1 x10^3/uL (0.0-0.2); EOSINOPHILS % (AUTO) 0.8 % (0.9-2.9); HEMATOCRIT 28.3 % (36.0-47.0); HEMOGLOBIN 8.9 g/dL (12.0-16.0); LYMPHOCYTES # (AUTO) 0.8 X10^3/uL (1.3-2.9); LYMPHOCYTES % (AUTO) 5.4 % (21.0-51.0); MEAN CORPUSCULAR HEMOGLOBIN 27.1 pg (27.0-34.0); MEAN CORPUSCULAR HGB CONC 31.6 g/dL (33.0-35.0); MEAN CORPUSCULAR VOLUME 85.8 fL (80.0-100.0); MONOCYTES % (AUTO) 6.4 % (0.0-13.0); NEUTROPHILS # (AUTO) 13.3 x10^3/uL (2.2-4.8); PLATELET COUNT 247 X10^3/uL (150.0-450.0); RED CELL DISTRIBUTION WIDTH 16.3 % (11.6-16.5); WHITE BLOOD COUNT 15.3 X10^3/uL (3.6-10.0)
[2019-10-25 06:34] LABS: ALANINE AMINOTRANSFERASE 18 Units/L (12-78); ALBUMIN 2.1 g/dL (3.4-5.0); ALKALINE PHOSPHATASE 105 Units/L (46-116); ASPARTATE AMINO TRANSFERASE 8 Units/L (15-37); BLOOD UREA NITROGEN 8 mg/dL (7-18); CALCIUM 7.9 mg/dL (8.5-10.1); CARBON DIOXIDE 29.3 mmol/L (21-32); CHLORIDE 105 mmol/L (98-107); COR CA(FOR HYPOALB) 9.4 mg/dL (8.5-10.1); COR NA(FOR HYPERGLY) 141 mmol/L (136-145); CREATININE 0.48 mg/dL (0.55-1.02); SODIUM 141 mmol/L (136-145); TOTAL PROTEIN 6.5 g/dL (6.4-8.2); eGFR NON BLACK RACES > 60 (>60)
[2019-10-25] MEDS: MOTRIN TAB 800 MG PO PRN ×2 (08:07→18:35)
[2019-10-25] MEDS: ROCEPHIN VIAL 1 GRAM 1 G in NS 100 ML IV + SPIKE MINIBAG* 100 ML IV SCH (09:53)
[2019-10-25] MEDS ORDERED: NS 500 ML IV 500 ML IV ONE (10:08)
[2019-10-25] MEDS ORDERED: ZOFRAN INJ 4 MG VIAL ONE (14:13)
[2019-10-25] MEDS: ZOFRAN INJ 4 MG VIAL IVP PRN (14:21)
--- NOTE | 2019-10-25 15:20 | DR.H&P ---
H&P - History & Physical for Day of: H&P Date: 10/24/19 - Chief Complaint Chief Complaint: LEFT UPPER EXTREMITY PAIN AND SWELLING - History of Present Illness History of Present Illness: IS A 43 YEAR OLD PATIENT OF OURS WHO PRESENTED TO THE ER WITH COMPLAINTS OF LEFT ARM SWELLING FOR THE PAST TWO DAYS THAT HAS PROGRESSIVELY GOTTEN WORSE. SHE REPORTS DIZZINESS AND WEAKNESS. 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 ON ARRIVAL, VITALS WERE 102.0-124-18-94%-175/94. LABS WERE OBTAINED. ABNORMAL LAB VALUES INCLUDE THE FOLLOWING: WBC 16.5, HGB 9.6, HCT 30.8, BUN 5, CREATININE 0.50, GLUCOSE 112, TOTAL BILI 0.10, ALBUMIN 2.6, GLOBULIN 4.6, LIPASE 65. URINALYSIS IS UNREMARKABLE. BLOOD CULTURES WERE OBTAINED. A CHEST XRAY WAS OBTAINED AND REVEALED: LINEAR PLATE ATELECTASIS AT THE LEFT LUNG BASE. VENOUS DOPPLER IS NEGATIVE FOR DVT. A BRAIN CT WAS OBTAINED AND IS NEGATIVE FOR ACUTE ABNORMALITY. EKG REVEALED: SINUS TACHYCARDIA WITH HR 107. SHE WAS GIVEN DEMEROL 25MG IV X 1, MOTRIN 800MG PO X 1, ROCEPHIN 1G IV X 1, TORADOL 30MG IV X 1, A NORMAL SALINE BOLUS, AND LABETALOL 20MG IV X 1. SHE WAS ADMITTED FOR FURTHER EVALUATION AND TREATMENT OF LEFT UPPER EXTREMITY CELLULITIS. SHE WAS STARTED ON ROCEPHIN 1G IV DAILY, RESPIRATORY TX, MORPHINE PRN, MOTRIN 800MG PO TID PRN. OTHERWISE, WE PLAN TO FOLLOW UP WITH AM LABS AND CONTINUE TO MONITOR. - Past Medical History Past Medical History: Hypertension Additional Medical History: Hiatal Hernia, Chronic Pancreatitis - Past Surgical History Surgical History: Abdominal Surgery, Hysterectomy Additional Surgical History: Hernia Repair - Family History Family Medical History: Diabetes Mellitus, Coronary Artery Disease, Hypertension - Social History Does patient currently use any type of tobacco product: No Have you used tobacco products in the last 12 months: Yes Type of Tobacco Use: Cigarettes Does any household member use tobacco: Yes Alcohol Use: None Drug Use: None - Medications Home Medications: No Known Drug Allergies Allergy (Verified 10/18/19 06:19) - Review of Systems Constitutional: Weakness Eyes: No Symptoms Reported ENT: No Symptoms Reported Respiratory: No Symptoms Reported Cardiovascular: See HPI, Edema (LEFT ARM SWELLING ), Light Headedness Genitourinary: No Symptoms Reported Musculoskeletal: No Symptoms Reported Skin: No Symptoms Reported Neurological: Weakness - Physical Exam Vital Signs: Temperature 99.9 F Pulse Rate [Bilateral Radial] 100 Pulse Rate 108 Respiratory Rate 18 Blood Pressure [Right Arm] 123/74 Blood Pressure [Left Arm] 141/69 Blood Pressure 148/70 O2 Sat by Pulse Oximetry 99 Oriented: Normal Eyes: Normal Ear: Normal Nose: Normal Throat: Normal Respiratory: Diminished Throughout Cardiovascular: Tachycardia, Edema (LEFT ARM ). negative: S3, S4, Murmur : Normal Auscultation: Bowel Sounds: Normal Palpation: Normal Tenderness: Normal Skin: Normal Musculoskeletal: Normal Psychiatric: Normal Mood Description: Calm Affect: Normal Speech Pattern: Clear - Assessment/Plan (1) Cellulitis of arm, left Status: Acute Plan: ADMIT, ROCPEHIN 1G IV DAILY, CONTINUE TO MONITOR - Allergies Allergies/Adverse Reactions: Allergies Allergy/AdvReac Type Severity Reaction Status Date / Time No Known Drug Allergies Allergy Verified 10/18/19 06:19
[2019-10-25] MEDS ORDERED: K-RIDER 10 MEQ/NS 100 ML 10 MEQ/100 ML BAG IV PRN (18:18)
[2019-10-25] MEDS ORDERED: KLOR-CON PO PRN (18:18)
[2019-10-25] MEDS ORDERED: MICRO K EXTEN CAP 10 MEQ PO PRN (18:18)
[2019-10-25] MEDS ORDERED: K-DUR TAB 20 MEQ PO PRN (18:18)
[2019-10-25] MEDS ORDERED: MAGNESIUM SULFATE 1 GRAM/100 mL PREMIX 1 GM/100 ML BAG IV PRN (18:18)
[2019-10-25] MEDS ORDERED: POTASSIUM CHL 60 MEQ/NS 0.45% 500 ML IV PRN (18:18)
[2019-10-25] MEDS ORDERED: POTASSIUM CHL 40 MEQ/NS 0.45% 500 ML IV PRN (18:18)
[2019-10-25] MEDS ORDERED: POTASSIUM CHLORIDE LIQ 20 MEQ UDC PO PRN (18:18)
[2019-10-26] MEDS: MORPHINE SULFATE INJ 2 MG INJ IVP PRN ×4 (04:27→20:13)
[2019-10-26] MEDS: XOPENEX 1.25 MG/3 ML NEBULE NEB SCH ×4 (05:40→20:36)
[2019-10-26 06:11] LABS: BASOPHILS # (AUTO) 0.1 X10^3/uL (0.0-0.1); BASOPHILS % (AUTO) 0.3 % (0.2-1.0); EOSINOPHILS # (AUTO) 0.2 x10^3/uL (0.0-0.2); EOSINOPHILS % (AUTO) 0.8 % (0.9-2.9); HEMATOCRIT 27.7 % (36.0-47.0); HEMOGLOBIN 8.9 g/dL (12.0-16.0); LYMPHOCYTES # (AUTO) 0.4 X10^3/uL (1.3-2.9); LYMPHOCYTES % (AUTO) 2.2 % (21.0-51.0); MEAN CORPUSCULAR HEMOGLOBIN 27.3 pg (27.0-34.0); MEAN CORPUSCULAR VOLUME 85.3 fL (80.0-100.0); MEAN PLATELET VOLUME 8.6 fL (7.4-11.0); MONOCYTES % (AUTO) 5.4 % (0.0-13.0); NEUTROPHILS # (AUTO) 16.9 x10^3/uL (2.2-4.8); NEUTROPHILS % (AUTO) 91.3 % (42.0-75.0); PLATELET COUNT 256 X10^3/uL (150.0-450.0); RED BLOOD COUNT 3.25 X10^6/uL (3.5-5.4); RED CELL DISTRIBUTION WIDTH 16.1 % (11.6-16.5); WHITE BLOOD COUNT 18.6 X10^3/uL (3.6-10.0)
[2019-10-26 06:35] LABS: ALANINE AMINOTRANSFERASE 14 Units/L (12-78); ALKALINE PHOSPHATASE 123 Units/L (46-116); ASPARTATE AMINO TRANSFERASE 13 Units/L (15-37); BLOOD UREA NITROGEN 6 mg/dL (7-18); CALCIUM 8.4 mg/dL (8.5-10.1); CARBON DIOXIDE 22.8 mmol/L (21-32); CHLORIDE 103 mmol/L (98-107); COR NA(FOR HYPERGLY) 135 mmol/L (136-145); CREATININE 0.48 mg/dL (0.55-1.02); MAGNESIUM 1.8 mg/dL (1.7-2.9); SODIUM 135 mmol/L (136-145); TOTAL PROTEIN 6.8 g/dL (6.4-8.2); eGFR NON BLACK RACES > 60 (>60)
[2019-10-26 06:51] LABS: BAND NEUTROPHILS % 4 % (0-10); HYPOCHROMASIA SLIGHT; PLATELET MORPHOLOGY COMMENT NORMAL (NORMAL)
[2019-10-26] MEDS: ROCEPHIN VIAL 1 GRAM 1 G in NS 100 ML IV + SPIKE MINIBAG* 100 ML IV SCH ×2 (08:43→18:56)
[2019-10-26] MEDS: MILK OF MAGNESIA PO PRN ×2 (10:45→20:02)
[2019-10-26] MEDS: COLACE CAP 100 MG PO PRN ×2 (10:45→20:07)
[2019-10-26] MEDS: LEVAQUIN PREMIX IV 750 MG 750 MG/150 ML BAG IV SCH (10:45)
[2019-10-26] MEDS: ULTRAM PO PRN (10:58)
[2019-10-26] MEDS: MOTRIN TAB 800 MG PO PRN ×2 (11:51→23:30)
[2019-10-26] MEDS: ZOFRAN INJ 4 MG VIAL IVP PRN (14:40)
[2019-10-26] MEDS ORDERED: CARAFATE ONE (16:36)
[2019-10-26] MEDS ORDERED: PROTONIX INJ 40 MG VIAL ONE (16:37)
[2019-10-26] MEDS ORDERED: PEPCID 20 MG IV PREMIX* 20 MG/50 ML BAG IV ONE (16:37)
[2019-10-26] MEDS ORDERED: PAXIL ONE (16:37)
[2019-10-26] MEDS: PROTONIX INJ 40 MG VIAL IVP SCH (16:49)
[2019-10-26] MEDS: PEPCID 20 MG IV PREMIX* 20 MG/50 ML BAG IV SCH ×2 (16:53→20:02)
[2019-10-26] MEDS: PAXIL PO SCH (18:17)
[2019-10-26] MEDS: CARAFATE PO SCH ×2 (18:17→20:06)
[2019-10-26] MEDS: KLONOPIN TAB 1 MG PO SCH (20:07)
[2019-10-27] MEDS: MORPHINE SULFATE INJ 2 MG INJ IVP PRN ×5 (01:27→22:18)
[2019-10-27] MEDS: XOPENEX 1.25 MG/3 ML NEBULE NEB SCH ×4 (05:11→20:35)
[2019-10-27 06:05] LABS: BASOPHILS % (AUTO) 0.2 % (0.2-1.0); EOSINOPHILS # (AUTO) 0.2 x10^3/uL (0.0-0.2); EOSINOPHILS % (AUTO) 0.9 % (0.9-2.9); HEMATOCRIT 28.6 % (36.0-47.0); HEMOGLOBIN 9.1 g/dL (12.0-16.0); LYMPHOCYTES # (AUTO) 0.8 X10^3/uL (1.3-2.9); MEAN CORPUSCULAR HEMOGLOBIN 26.7 pg (27.0-34.0); MEAN CORPUSCULAR HGB CONC 31.7 g/dL (33.0-35.0); MEAN CORPUSCULAR VOLUME 84.1 fL (80.0-100.0); MEAN PLATELET VOLUME 8.8 fL (7.4-11.0); MONOCYTES # (AUTO) 0.9 x10^3/uL (0.3-0.8); MONOCYTES % (AUTO) 5.8 % (0.0-13.0); NEUTROPHILS # (AUTO) 14.2 x10^3/uL (2.2-4.8); NEUTROPHILS % (AUTO) 88.1 % (42.0-75.0); PLATELET COUNT 326 X10^3/uL (150.0-450.0); WHITE BLOOD COUNT 16.1 X10^3/uL (3.6-10.0)
[2019-10-27 06:15] LABS: ALANINE AMINOTRANSFERASE 15 Units/L (12-78); ALBUMIN 2.1 g/dL (3.4-5.0); ALKALINE PHOSPHATASE 111 Units/L (46-116); AMYLASE 40 Units/L (25-115); ASPARTATE AMINO TRANSFERASE 14 Units/L (15-37); BLOOD UREA NITROGEN 7 mg/dL (7-18); CALCIUM 8.4 mg/dL (8.5-10.1); CARBON DIOXIDE 27.6 mmol/L (21-32); CHLORIDE 99 mmol/L (98-107); COR CA(FOR HYPOALB) 9.9 mg/dL (8.5-10.1); LIPASE 60 Units/L (73-393); SODIUM 135 mmol/L (136-145); TOTAL PROTEIN 7.3 g/dL (6.4-8.2); eGFR NON BLACK RACES > 60 (>60)
[2019-10-27] MEDS: CARAFATE PO SCH ×4 (06:16→21:18)
[2019-10-27 07:06] LABS: ERYTHROCYTE SEDIMENTATION RATE 100 MM/HOUR (0-20)
[2019-10-27] MEDS: LEVAQUIN PREMIX IV 750 MG 750 MG/150 ML BAG IV SCH (08:27)
[2019-10-27] MEDS: PROTONIX INJ 40 MG VIAL IVP SCH (08:27)
[2019-10-27] MEDS: PEPCID 20 MG IV PREMIX* 20 MG/50 ML BAG IV SCH ×2 (08:27→21:19)
[2019-10-27] MEDS: MOTRIN TAB 800 MG PO PRN (08:28)
[2019-10-27] MEDS: PAXIL PO SCH (08:28)
--- NOTE | 2019-10-27 08:56 | PCM.PROG ---
Progress Note - Progress Note for Day of Date of Exam: 10/26/19 - Subjective Subjective: WAS ADMITTED FOR LEFT UPPER EXTREMITY CELLULITIS. TODAY, SHE IS ALERT AND OREITED, LYING IN BED ON MORNING ROUNDS. SHE CONTINUES WITH PAIN TO LEFT ARM. ON EXAMINATION, HEART IS REGULAR IN RATE AND RHYTHM. BILATERAL LUNGS ARE NOTED TO BE CLEAR TO AUSCULTATION. ABDOMEN IS ROUND, SOFT, AND NON- TENDER WITH NORMAL BOWEL SOUNDS NOTED IN ALL QUADRANTS. LEFT UPPER ARM CONTINUES WITH ERYTHEMA AND EDEMA FROM AXILLA TO HAND. HER VITALS THIS MORNING ARE: 99.4-94-18-93%RA-133/75. LABS WERE OBTAINED. ABNORMAL LAB VALUES INCLUDE THE FOLLOWING: WBC INCREASED TO 18.6, RBC 3.25, HGB 8.9, HCT 27.7, SODIUM 135, BUN 6, CREATININE 0.48, GLUCOSE 111, CALCIUM 8.4, TOTAL BILI 0.10, AST 13, ALK PHOS 123, ALBUMIN 2.0, GLOBULIN 4.8. SHE IS CURRENTLY RECEIVING IV FLUIDS, ROCEPHIN 1G IV DAILY, THE MAGNESIUM AND POTASSIUM PROTOCOLS. WE WILL DISCONTINUE THE ROCEPHIN AND START IV VANCOMYCIN, IV LEVAQUIN, IV PEPCID, AND IV PROTONIX . WE WILL OBTAIN A SED AND CRP LEVEL. OTHERWISE, WE WILL FOLLOW UP WITH AM LABS AND CONTINUE TO MONITOR. - Past Medical Family Social History Past Med/Fam/Surg Hx: No changes since H&P Allergies: Allergies No Known Drug Allergies Allergy (Verified 10/18/19 06:19) - Review of Systems ROS: No change since H&P - Vital Signs and I&O's Vital Signs: Temperature 98.4 F Pulse Rate [Bilateral Radial] 87 Pulse Rate 93 Respiratory Rate 18 Blood Pressure [Right Arm] 128/69 Blood Pressure [Left Arm] 141/69 Blood Pressure 148/70 O2 Sat by Pulse Oximetry 95 Intake and Output: Intake & Output 10/24/19 10/25/19 10/26/19 10/27/19 11:59 11:59 11:59 11:59 Intake Total 1730 / 1730 1780 / 1780 650 / 650 Balance 1730 / 1730 1780 / 1780 650 / 650 - Physical Exam Oriented: Normal Eyes: Normal Ear: Normal Nose: Normal Throat: Normal Respiratory: Normal Cardiovascular: Normal, Edema (LEFT ARM ). negative: S3, S4, Murmur : Normal Auscultation: Bowel Sounds: Normal Palpation: Normal Tenderness: Normal Skin: Normal Musculoskeletal: Normal Psychiatric: Normal Mood Description: Calm Affect: Normal Speech Pattern: Appropriate, Slurred - Laboratory and Diagnostics Result Diagrams: 10/27/19 04:50 10/27/19 04:50 Labs: 10/24/19 11:06 Blood Blood Culture - Preliminary 10/24/19 10:16 Blood Blood Culture - Preliminary Laboratory WBC 16.1 X10^3/uL (3.6-10.0) H 10/27/19 04:50 RBC 3.40 X10^6/uL (3.5-5.4) L 10/27/19 04:50 Hgb 9.1 g/dL (12.0-16.0) L 10/27/19 04:50 Hct 28.6 % (36.0-47.0) L 10/27/19 04:50 MCV 84.1 fL (80.0-100.0) 10/27/19 04:50 MCH 26.7 pg (27.0-34.0) L 10/27/19 04:50 MCHC 31.7 g/dL (33.0-35.0) L 10/27/19 04:50 RDW 16.0 % (11.6-16.5) 10/27/19 04:50 Plt Count 326 X10^3/uL (150.0-450.0) 10/27/19 04:50 Plt Count Comment Adequate (ADEQUATE) 10/26/19 05:00 MPV 8.8 fL (7.4-11.0) 10/27/19 04:50 Neut % (Auto) 88.1 % (42.0-75.0) H 10/27/19 04:50 Lymph % (Auto) 5.0 % (21.0-51.0) L 10/27/19 04:50 [place] % (Auto) 5.8 % (0.0-13.0) 10/27/19 04:50 Eos % (Auto) 0.9 % (0.9-2.9) 10/27/19 04:50 Baso % (Auto) 0.2 % (0.2-1.0) 10/27/19 04:50 Neut # (Auto) 14.2 x10^3/uL (2.2-4.8) H 10/27/19 04:50 Lymph # (Auto) 0.8 X10^3/uL (1.3-2.9) L 10/27/19 04:50 [place] # (Auto) 0.9 x10^3/uL (0.3-0.8) H 10/27/19 04:50 Eos # (Auto) 0.2 x10^3/uL (0.0-0.2) 10/27/19 04:50 Baso # (Auto) 0.0 X10^3/uL (0.0-0.1) 10/27/19 04:50 Absolute Nucleated RBC 0.1 /100WBC 10/27/19 04:50 Total Counted 100 10/26/19 05:00 Neutrophils % (Manual) 90 % (39-76) H 10/26/19 05:00 Band Neutrophils % 4 % (0-10) 10/26/19 05:00 Lymphocytes % (Manual) 4 % (13-43) L 10/26/19 05:00 Monocytes % (Manual) 1 % (4-9) L 10/26/19 05:00 Eosinophils % (Manual) 1 % (0-6) 10/26/19 05:00 Plt Morphology Comment Normal (NORMAL) 10/26/19 05:00 RBC Morphology Abnormal (NORMAL) A 10/26/19 05:00 Hypochromasia Slight A 10/26/19 05:00 ESR 100 MM/HOUR (0-20) H 10/27/19 04:50 Sodium 135 mmol/L (136-145) L 10/27/19 04:50 Corrected Sodium TNP 10/27/19 04:50 Potassium 4.0 mmol/L (3.5-5.1) 10/27/19 04:50 Chloride 99 mmol/L (98-107) 10/27/19 04:50 Carbon Dioxide 27.6 mmol/L (21-32) 10/27/19 04:50 BUN 7 mg/dL (7-18) 10/27/19 04:50 Creatinine 0.50 mg/dL (0.55-1.02) L 10/27/19 04:50 Est GFR (MDRD) Af Amer > 60 (>60) 10/27/19 04:50 Est GFR (MDRD) Non-Af > 60 (>60) 10/27/19 04:50 Glucose 104 mg/dL (65-99) H 10/27/19 04:50 Lactic Acid 0.9 mmol/L (0.4-2.0) 10/26/19 15:54 Calcium 8.4 mg/dL (8.5-10.1) L 10/27/19 04:50 Corrected Calcium 9.9 mg/dL (8.5-10.1) 10/27/19 04:50 Magnesium 1.8 mg/dL (1.7-2.9) 10/26/19 05:00 Total Bilirubin 0.20 mg/dL (0.2-1.0) 10/27/19 04:50 AST 14 Units/L (15-37) L 10/27/19 04:50 ALT 15 Units/L (12-78) 10/27/19 04:50 Alkaline Phosphatase 111 Units/L (46-116) 10/27/19 04:50 C-Reactive Protein 254.20 mg/L (0-3.0) H 10/27/19 04:50 Total Protein 7.3 g/dL (6.4-8.2) 10/27/19 04:50 Albumin 2.1 g/dL (3.4-5.0) L 10/27/19 04:50 Globulin 5.2 g/dL (2.5-4.5) H 10/27/19 04:50 Albumin/Globulin Ratio 0.4 Ratio (1.1-2.1) L 10/27/19 04:50 Amylase 40 Units/L (25-115) 10/27/19 04:50 Lipase 60 Units/L (73-393) L 10/27/19 04:50 Specimen Type Clean catch urine 10/24/19 12:29 Urine Color Yellow (YELLOW) 10/24/19 12:29 Urine Appearance Clear (CLEAR) 10/24/19 12:29 Urine pH 6.5 (5.0 - 8.0) 10/24/19 12:29 Ur Specific [place] 1.015 (1.000-1.030) 10/24/19 12:29 Urine Protein Negative (NEGATIVE) 10/24/19 12:29 Urine Glucose (UA) Negative (NEGATIVE) 10/24/19 12:29 Urine Ketones Negative (NEGATIVE) 10/24/19 12:29 Urine Occult Blood Negative (NEGATIVE) 10/24/19 12:29 Urine Nitrite Negative (NEGATIVE) 10/24/19 12:29 Urine Bilirubin Negative (NEGATIVE) 10/24/19 12:29 Urine Urobilinogen Normal (NORMAL) 10/24/19 12:29 Ur Leukocyte Esterase Negative (NEGATIVE) 10/24/19 12:29 Urine Opiates Screen Negative (NEG=<300) 10/24/19 12:29 Urine Methadone Screen Negative (NEG=<300) 10/24/19 12:29 Ur Barbiturates Screen Negative (NEG=<200) 10/24/19 12:29 Ur Phencyclidine Scrn Negative (NEG=<25) 10/24/19 12:29 Ur Amphetamines Screen Positive (NEG=<1000) A 10/24/19 12:29 U Benzodiazepines Scrn Positive (NEG=<200) A 10/24/19 12:29 Urine Cocaine Screen Negative (NEG=<300) 10/24/19 12:29 U Marijuana (THC) Screen Negative (NEG=<50) 10/24/19 12:29 - Plan (1) Cellulitis of arm, left Status: Acute Plan: IV LEVAQUIN, IV VANCOMYCIN, IV PEPCID, IV PROTONIX, CONTINUE TO MONITOR
[2019-10-27] MEDS: ZOFRAN INJ 4 MG VIAL IVP PRN (09:48)
--- NOTE | 2019-10-27 10:21 | PCM.PROG ---
Progress Note - Progress Note for Day of Date of Exam: 10/27/19 - Subjective Subjective: WAS ADMITTED FOR LEFT UPPER EXTREMITY CELLULITIS. TODAY, SHE IS ALERT AND OREITED, LYING IN BED ON MORNING ROUNDS. SHE CONTINUES WITH PAIN TO LEFT ARM. ON EXAMINATION, HEART IS REGULAR IN RATE AND RHYTHM. BILATERAL LUNGS ARE NOTED TO BE CLEAR TO AUSCULTATION. ABDOMEN IS ROUND, SOFT, AND NON- TENDER WITH NORMAL BOWEL SOUNDS NOTED IN ALL QUADRANTS. LEFT UPPER ARM CONTINUES WITH ERYTHEMA AND EDEMA FROM AXILLA TO HAND. HER VITALS THIS MORNING ARE: 99.1-93-20-95%-150/84. LABS WERE OBTAINED. ABNORMAL LAB VALUES INCLUDE THE FOLLOWING: WBC 16.1, RBC 3.40, HGB 9.1, HCT 28.6, SODIUM 135, CREATININE 0.50, GLUCOSE 104, CALCIUM 8.4, AST 14, CRP 254.20, ALBUMIN 2.1, GLOBULIN 5.2. SHE IS CURRENTLY RECEIVING IV FLUIDS, IV VANCOMYCIN, IV ZOSYN,IV PEPCID, IV PROTONIX, THE MAGNESIUM AND POTASSIUM PROTOCOLS. WE WILL CONTINUE WITH CURRENT PLAN OF CARE TODAY. OTHERWISE, WE WILL FOLLOW UP WITH AM LABS AND CONTINUE TO MONITOR. - Past Medical Family Social History Past Med/Fam/Surg Hx: No changes since H&P Allergies: Allergies No Known Drug Allergies Allergy (Verified 10/18/19 06:19) - Review of Systems ROS: No change since H&P - Vital Signs and I&O's Vital Signs: Temperature 99.1 F Pulse Rate [Bilateral Radial] 93 Pulse Rate 93 Respiratory Rate 18 Blood Pressure [Right Arm] 150/84 Blood Pressure [Left Arm] 141/69 Blood Pressure 148/70 O2 Sat by Pulse Oximetry 95 Intake and Output: Intake & Output 10/24/19 10/25/19 10/26/19 10/27/19 11:59 11:59 11:59 11:59 Intake Total 1730 / 1730 1780 / 1780 650 / 650 Balance 1730 / 1730 1780 / 1780 650 / 650 - Physical Exam Oriented: Normal Eyes: Normal Ear: Normal Nose: Normal Throat: Normal Respiratory: Normal Cardiovascular: Normal, Edema (LEFT ARM ). negative: S3, S4, Murmur : Normal Auscultation: Bowel Sounds: Normal Tenderness: Normal Skin: Normal Musculoskeletal: Normal Psychiatric: Normal Mood Description: Calm Affect: Normal Speech Pattern: Clear, Appropriate - Laboratory and Diagnostics Result Diagrams: 10/27/19 04:50 10/27/19 04:50 Labs: 10/24/19 11:06 Blood Blood Culture - Preliminary 10/24/19 10:16 Blood Blood Culture - Preliminary Laboratory WBC 16.1 X10^3/uL (3.6-10.0) H 10/27/19 04:50 RBC 3.40 X10^6/uL (3.5-5.4) L 10/27/19 04:50 Hgb 9.1 g/dL (12.0-16.0) L 10/27/19 04:50 Hct 28.6 % (36.0-47.0) L 10/27/19 04:50 MCV 84.1 fL (80.0-100.0) 10/27/19 04:50 MCH 26.7 pg (27.0-34.0) L 10/27/19 04:50 MCHC 31.7 g/dL (33.0-35.0) L 10/27/19 04:50 RDW 16.0 % (11.6-16.5) 10/27/19 04:50 Plt Count 326 X10^3/uL (150.0-450.0) 10/27/19 04:50 Plt Count Comment Adequate (ADEQUATE) 10/26/19 05:00 MPV 8.8 fL (7.4-11.0) 10/27/19 04:50 Neut % (Auto) 88.1 % (42.0-75.0) H 10/27/19 04:50 Lymph % (Auto) 5.0 % (21.0-51.0) L 10/27/19 04:50 [place] % (Auto) 5.8 % (0.0-13.0) 10/27/19 04:50 Eos % (Auto) 0.9 % (0.9-2.9) 10/27/19 04:50 Baso % (Auto) 0.2 % (0.2-1.0) 10/27/19 04:50 Neut # (Auto) 14.2 x10^3/uL (2.2-4.8) H 10/27/19 04:50 Lymph # (Auto) 0.8 X10^3/uL (1.3-2.9) L 10/27/19 04:50 [place] # (Auto) 0.9 x10^3/uL (0.3-0.8) H 10/27/19 04:50 Eos # (Auto) 0.2 x10^3/uL (0.0-0.2) 10/27/19 04:50 Baso # (Auto) 0.0 X10^3/uL (0.0-0.1) 10/27/19 04:50 Absolute Nucleated RBC 0.1 /100WBC 10/27/19 04:50 Total Counted 100 10/26/19 05:00 Neutrophils % (Manual) 90 % (39-76) H 10/26/19 05:00 Band Neutrophils % 4 % (0-10) 10/26/19 05:00 Lymphocytes % (Manual) 4 % (13-43) L 10/26/19 05:00 Monocytes % (Manual) 1 % (4-9) L 10/26/19 05:00 Eosinophils % (Manual) 1 % (0-6) 10/26/19 05:00 Plt Morphology Comment Normal (NORMAL) 10/26/19 05:00 RBC Morphology Abnormal (NORMAL) A 10/26/19 05:00 Hypochromasia Slight A 10/26/19 05:00 ESR 100 MM/HOUR (0-20) H 10/27/19 04:50 Sodium 135 mmol/L (136-145) L 10/27/19 04:50 Corrected Sodium TNP 10/27/19 04:50 Potassium 4.0 mmol/L (3.5-5.1) 10/27/19 04:50 Chloride 99 mmol/L (98-107) 10/27/19 04:50 Carbon Dioxide 27.6 mmol/L (21-32) 10/27/19 04:50 BUN 7 mg/dL (7-18) 10/27/19 04:50 Creatinine 0.50 mg/dL (0.55-1.02) L 10/27/19 04:50 Est GFR (MDRD) Af Amer > 60 (>60) 10/27/19 04:50 Est GFR (MDRD) Non-Af > 60 (>60) 10/27/19 04:50 Glucose 104 mg/dL (65-99) H 10/27/19 04:50 Lactic Acid 0.9 mmol/L (0.4-2.0) 10/26/19 15:54 Calcium 8.4 mg/dL (8.5-10.1) L 10/27/19 04:50 Corrected Calcium 9.9 mg/dL (8.5-10.1) 10/27/19 04:50 Magnesium 1.8 mg/dL (1.7-2.9) 10/26/19 05:00 Total Bilirubin 0.20 mg/dL (0.2-1.0) 10/27/19 04:50 AST 14 Units/L (15-37) L 10/27/19 04:50 ALT 15 Units/L (12-78) 10/27/19 04:50 Alkaline Phosphatase 111 Units/L (46-116) 10/27/19 04:50 C-Reactive Protein 254.20 mg/L (0-3.0) H 10/27/19 04:50 Total Protein 7.3 g/dL (6.4-8.2) 10/27/19 04:50 Albumin 2.1 g/dL (3.4-5.0) L 10/27/19 04:50 Globulin 5.2 g/dL (2.5-4.5) H 10/27/19 04:50 Albumin/Globulin Ratio 0.4 Ratio (1.1-2.1) L 10/27/19 04:50 Amylase 40 Units/L (25-115) 10/27/19 04:50 Lipase 60 Units/L (73-393) L 10/27/19 04:50 Specimen Type Clean catch urine 10/24/19 12:29 Urine Color Yellow (YELLOW) 10/24/19 12:29 Urine Appearance Clear (CLEAR) 10/24/19 12:29 Urine pH 6.5 (5.0 - 8.0) 10/24/19 12:29 Ur Specific [place] 1.015 (1.000-1.030) 10/24/19 12:29 Urine Protein Negative (NEGATIVE) 10/24/19 12:29 Urine Glucose (UA) Negative (NEGATIVE) 10/24/19 12:29 Urine Ketones Negative (NEGATIVE) 10/24/19 12:29 Urine Occult Blood Negative (NEGATIVE) 10/24/19 12:29 Urine Nitrite Negative (NEGATIVE) 10/24/19 12:29 Urine Bilirubin Negative (NEGATIVE) 10/24/19 12:29 Urine Urobilinogen Normal (NORMAL) 10/24/19 12:29 Ur Leukocyte Esterase Negative (NEGATIVE) 10/24/19 12:29 Urine Opiates Screen Negative (NEG=<300) 10/24/19 12:29 Urine Methadone Screen Negative (NEG=<300) 10/24/19 12:29 Ur Barbiturates Screen Negative (NEG=<200) 10/24/19 12:29 Ur Phencyclidine Scrn Negative (NEG=<25) 10/24/19 12:29 Ur Amphetamines Screen Positive (NEG=<1000) A 10/24/19 12:29 U Benzodiazepines Scrn Positive (NEG=<200) A 10/24/19 12:29 Urine Cocaine Screen Negative (NEG=<300) 10/24/19 12:29 U Marijuana (THC) Screen Negative (NEG=<50) 10/24/19 12:29 - Plan (1) Cellulitis of arm, left Status: Acute Plan: IV LEVAQUIN, IV VANCOMYCIN, IV PEPCID, IV PROTONIX, CONTINUE TO MONITOR
[2019-10-27] MEDS: VANCOMYCIN HCL 1 G in D5W 250 ML IV 250 ML IV SCH ×3 (10:44→22:18)
[2019-10-27] MEDS ORDERED: ZESTRIL TAB 20 MG ONE (11:18)
[2019-10-27] MEDS: NEURONTIN CAP 300 MG PO SCH ×3 (11:32→21:18)
[2019-10-27] MEDS: LOPRESSOR TAB 50 MG PO SCH ×2 (11:33→21:17)
[2019-10-27] MEDS: ZESTRIL TAB 20 MG PO SCH (11:33)
[2019-10-27] MEDS: NORCO 10/325 TAB PO SCH ×3 (11:34→21:18)
[2019-10-27] MEDS: NORVASC TAB 5 MG PO SCH (11:35)
[2019-10-27] MEDS: MEGACE PO SCH ×2 (11:39→21:18)
[2019-10-27] MEDS: NICOTINE PATCH TD SCH (17:41)
[2019-10-27] MEDS: KLONOPIN TAB 1 MG PO SCH (21:18)
[2019-10-28] MEDS: MORPHINE SULFATE INJ 2 MG INJ IVP PRN (02:10)
[2019-10-28] MEDS: ZOFRAN INJ 4 MG VIAL IVP PRN (02:11)
[2019-10-28] MEDS: XOPENEX 1.25 MG/3 ML NEBULE NEB SCH (05:05)
[2019-10-28] MEDS ORDERED: PHARMACY COMMENT IV NR (05:30)
[2019-10-28 05:55] LABS: BASOPHILS % (AUTO) 0.2 % (0.2-1.0); EOSINOPHILS # (AUTO) 0.5 x10^3/uL (0.0-0.2); EOSINOPHILS % (AUTO) 4.2 % (0.9-2.9); HEMATOCRIT 29.6 % (36.0-47.0); HEMOGLOBIN 9.5 g/dL (12.0-16.0); LYMPHOCYTES # (AUTO) 0.8 X10^3/uL (1.3-2.9); LYMPHOCYTES % (AUTO) 6.4 % (21.0-51.0); MEAN CORPUSCULAR HEMOGLOBIN 27.1 pg (27.0-34.0); MEAN CORPUSCULAR VOLUME 84.7 fL (80.0-100.0); MEAN PLATELET VOLUME 8.9 fL (7.4-11.0); MONOCYTES # (AUTO) 0.7 x10^3/uL (0.3-0.8); MONOCYTES % (AUTO) 5.4 % (0.0-13.0); NEUTROPHILS # (AUTO) 10.5 x10^3/uL (2.2-4.8); NEUTROPHILS % (AUTO) 83.8 % (42.0-75.0); PLATELET COUNT 379 X10^3/uL (150.0-450.0); RED BLOOD COUNT 3.49 X10^6/uL (3.5-5.4); RED CELL DISTRIBUTION WIDTH 16.3 % (11.6-16.5); WHITE BLOOD COUNT 12.5 X10^3/uL (3.6-10.0)
[2019-10-28 05:59] LABS: VANCOMYCIN,TROUGH 12.5 ug/mL (15-20)
[2019-10-28 06:33] LABS: ALANINE AMINOTRANSFERASE 37 Units/L (12-78); ALBUMIN 2.1 g/dL (3.4-5.0); ALKALINE PHOSPHATASE 155 Units/L (46-116); ASPARTATE AMINO TRANSFERASE 52 Units/L (15-37); BLOOD UREA NITROGEN 7 mg/dL (7-18); CALCIUM 8.5 mg/dL (8.5-10.1); CARBON DIOXIDE 28.1 mmol/L (21-32); CHLORIDE 102 mmol/L (98-107); CREATININE 0.54 mg/dL (0.55-1.02); SODIUM 137 mmol/L (136-145); TOTAL PROTEIN 7.5 g/dL (6.4-8.2); eGFR NON BLACK RACES > 60 (>60)
[2019-10-28] MEDS: NEURONTIN CAP 300 MG PO SCH (06:33)
[2019-10-28] MEDS: NORCO 10/325 TAB PO SCH ×2 (06:33→12:35)
[2019-10-28] MEDS: VANCOMYCIN HCL 1 G in D5W 250 ML IV 250 ML IV SCH (06:34)
[2019-10-28] MEDS: CARAFATE PO SCH ×2 (06:35→11:25)
[2019-10-28] MEDS ORDERED: ZESTRIL TAB 20 MG ONE (07:30)
[2019-10-28] MEDS: PEPCID 20 MG IV PREMIX* 20 MG/50 ML BAG IV SCH (08:06)
[2019-10-28] MEDS: LEVAQUIN PREMIX IV 750 MG 750 MG/150 ML BAG IV SCH (08:06)
[2019-10-28] MEDS: NICOTINE PATCH TD SCH (08:07)
[2019-10-28] MEDS: PROTONIX INJ 40 MG VIAL IVP SCH (08:08)
[2019-10-28] MEDS: PAXIL PO SCH (08:08)
[2019-10-28] MEDS: MEGACE PO SCH (08:08)
[2019-10-28] MEDS: NORVASC TAB 5 MG PO SCH (08:08)
[2019-10-28] MEDS: LOPRESSOR TAB 50 MG PO SCH (08:08)
[2019-10-28] MEDS: ZESTRIL TAB 20 MG PO SCH (08:08)
[2019-10-28] MEDS ORDERED: VANCOMYCIN HCL 1 G in D5W 250 ML IV 250 ML IV ONE (11:00)
[2019-10-28 12:06] VITALS: BP 126/66
== END 2019-10-28 13:00 | disposition home or self-care (01) | DRG 603 ==
LOC: MED/SURG 09:43 → ER 09:43 → MED/SURG 15:57
PROVIDERS: ADMIT Internal Medicine; ATTEND Internal Medicine
CPT/HCPCS: 36415; 70450; 71010; 71045; 80053; 80202; 80307; 81003; 82150; 82565; 83605; 83690; 83735; 85025; 85652; 86140; 87040; 87070; 87075; 87205; 93005; 93971; 94640; 94760; 96365; 96374; 96375; 97110; 97161; 97165; 99284; A4216; A4222; C9113; S0028; S0179; G0378; G0434; J0696; J1885; J1956; J2175; J2270; J2405; J3370; J3490; J7030; J7040; J7050; J7060

== ENCOUNTER 2020-02-08 18:23 | Inpatient (IN) ==
[2020-02-08] MEDS ORDERED: MORPHINE SULFATE INJ 4 MG IVP ONE (18:25)
[2020-02-08] MEDS ORDERED: ZOFRAN INJ 4 MG VIAL IVP ONE (18:25)
[2020-02-08] MEDS ORDERED: DUONEB 0.5 MG/3 MG (3 mL) NEB ONE ×3 (18:25→22:19)
--- NOTE | 2020-02-08 18:35 | DR.GENAD ---
HPI Time Seen Time Seen by Provider: 02/08/20 18:24 HPI Comment HPI Comment: PATIENT IS 44YR OLD FEMALE IN WE WITH INCREASING SOB AND CHEST SINCE LAST NIGHT. PATIENT HAVE HISTORY OF HYPERTESION AND WAS TREATED FOR PNEUMONIA IN NOVEMBER THIS YEAR. SHE CONTINUE FEELING WEAK SINCE. SHE IS AT HOME CURRENTLY WITH HER CHILDREN AT HOME DUE TO BENAVIDES VIRUS . GO OUT TO THE STORE AND BACK. HAVE NOT BEING AROUND A SICK PERSON. SHE HAS PROGRESSIVELY BECOME SOB AND IS RUNNING LOW GRADE FEVER. SHE IS WEAK AND DRAIN OF ENERGY. HER APPETITE CONTINUE TO BE POOR. SHE IS COUGHING MINIMAL SPUTUM PRODUCTION. NOT ON ANY ANTIBIOTIC CURRENTLY. ROSEMARY IS A DAILY SMOKER OVER ONE PK PER DAY. DENIES USE OF ILLICIT DRUGS. Complaint/Symptoms Chief Complaint Doctors Comments: INCREASING SOB AND CHEST PAIN SINCE LAST NIGHT. Nurses notes reviewed Nurses Notes Review: Yes Source History Provided: Patient Mode of Arrival Mode of Arrival: EMS Timing Came on: Gradually Duration Duration: Constant Duration: Weeks Severity Severity: Severe Modifying Factors Worsens:: EXERTION. Improves:: WITH REST. Associated Signs and Symptoms Associated Signs and Symptoms: WEAKNESS. Other History Other History: HYPERTENSION, RECENT PNEUMONIA. PMH PMH Past Medical History: Hypertension Past Surgical History: Yes Surgical History: Abdominal Surgery and Hysterectomy Family History Family Medical History: Diabetes Mellitus, Coronary Artery Disease and Hypertension Social History Do you use any recreational Drugs:: No ROS Review of Systems Constitutional: See HPI, Chills, Fever, Malaise, Weakness, Fatigue and Loss of Appetite Eyes: No Symptoms Reported; negative Eye Pain, Blurred Vision, Tearing, Discharge and Diplopia ENTM: See HPI, Nose Discharge and Nose Congestion; negative Ear Pain and Throat Pain Respiratoy: See HPI, Productive Cough, Short of Breath and Wheezing; negative Hemoptysis Cardiovascular: No Symptoms Reported, See HPI, Chest Pain and Palpitations; negative Edema Gastrointestinal/Abdominal: No Symptoms Reported; negative Abdominal Pain, Diarrhea, Nausea and Vomiting Genitourinary: No Symptoms Reported and See HPI; negative Dysuria, Frequency and Hematuria Neurological: See HPI, Headache, Weakness and Dizziness Musculoskeletal: See HPI, Back Pain and Muscle Pain Integumentary: No Symptoms Reported and See HPI; negative Change in Color, Rash and Juandice Hematologic/Lymphatic: No Symptoms Reported and See HPI; negative Easy Bruising and Swollen Glands Endocrine: See HPI and Decreased Appetite; negative Increased Thirst and Increased Urine Psychiatric: No Symptoms Reported and See HPI All Other Systems: Reviewed and Negative PE Vital Signs Vitals: Temperature 99.1 F Pulse Rate 90 Respiratory Rate 24 Blood Pressure [Right Arm] 126/66 Blood Pressure [Left Arm] 141/69 Blood Pressure [Right Arm] 156/92 Blood Pressure 137/85 O2 Sat by Pulse Oximetry 100 General Limitations: No Limitations General Appearance: Alert and In No Apparent Distress Head Head Exam: Normal Inspection and Atraumatic Eyes Eye exam: Normal Appearance, PERRL and EOMI; negative Scleral Icterus and Conjunctival Injection ENT ENT Exam: Normal Exam, Normal Oropharynx, Normal External Ear Exam and TM's Normal Bilaterally External Ear Exam: Normal External Inspection; negative Mastoid Tenderness TM/Canal Exam: Bilateral: Normal Nose Exam: Normal Nose Exam; negative Sinus Tenderness, Nasal Deviation and Septal Hematoma Mouth Exam: Normal Inspection; negative Lip Swelling and Tongue Swelling Throat Exam: Tonsillar Erythema; negative Tonsillomegaly and Tonsillar Exudate Neck Neck Exam: Normal Inspection and Trachea Midline; negative Tenderness and Lymphadenopathy Chest Chest Inspection: Normal Inspection and Symmetric Chest Wall Rise; negative Tenderness Respiratory Respiratory Exam: Normal Lung Sounds Bilat, Accessory Muscle Use, Chest Wall Tenderness and Respiratory Distress Respiratory Exam: Bilateral: Wheezing, Bilateral: Rhonchi and Bilateral: Decreased Breath Sounds and Lower: Wheezing, Lower: Rhonchi and Lower: Decreased Breath Sounds Cardiovascular Cardiovascular Exam: Regular Rate, Normal Rhythm and Normal Heart Sounds; negative Systolic Murmur and Diastolic Murmur Abdominal Exam Abdominal Exam: Normal Inspection, Normal Bowel Sounds and Soft; negative Tenderness Extremities Extremities Exam: Normal Inspection and Normal Capillary Refill; negative Tenderness, Edema and Calf Tenderness Back Back Exam: Normal Inspection; negative (R) CVA Tenderness and (L) CVA Tenderness Neurologic Neurological Exam: Alert and Oriented X3; negative Motor Sensory Deficit Psychiatric Psychiatric Exam: Normal Affect and Normal Mood Skin Skin Exam: Dry MDM Differential Diagnosis Differential Diagnosis: RESPIRATORY DISTRESS, SEPSIS, PNEUMONIA, UTI, SINUSITIS, URTI. COURSE Treatment Treatment: NS 100CC/HR, OXYGEN NR MASK, MORHIN 4MG IV, ZOFRAN 4MG IV. CU[place] NEB Consultation Consultation Comments: DISCUSSED PATIENT WITH DR MCCARTHY. SHE WILL ADMIT PATTIENT. Education/Counseling Education/Counseling: Patient Educated On: Diagnosis ROR Labs Reviewed Laboratory Results Reviewed?: Yes Result Diagrams: 02/08/20 19:00 02/08/20 19:00 Laboratory: WBC 11.9 X10^3/uL (3.6-10.0) H 02/08/20 19:00 RBC 4.12 X10^6/uL (3.5-5.4) 02/08/20 19:00 Hgb 11.9 g/dL (12.0-16.0) L 02/08/20 19:00 Hct 35.8 % (36.0-47.0) L 02/08/20 19:00 MCV 87.0 fL (80.0-100.0) 02/08/20 19:00 MCH 28.9 pg (27.0-34.0) 02/08/20 19: MCHC 33.2 g/dL (33.0-35.0) 02/08/20 19:00 RDW 20.9 % (11.6-16.5) H 02/08/20 19:00 Plt Count 201 X10^3/uL (150.0-450.0) 02/08/20 19:00 Plt Count Comment Adequate (ADEQUATE) 02/08/20 19:00 MPV 8.6 fL (7.4-11.0) 02/08/20 19:00 Neut % (Auto) 91.1 % (42.0-75.0) H 02/08/20 19:00 Lymph % (Auto) 5.9 % (21.0-51.0) L 02/08/20 19:00 [place] % (Auto) 2.0 % (0.0-13.0) 02/08/20 19:00 Eos % (Auto) 0.7 % (0.9-2.9) L 02/08/20 19:00 Baso % (Auto) 0.3 % (0.2-1.0) 02/08/20 19:00 Neut # (Auto) 10.8 x10^3/uL (2.2-4.8) H 02/08/20 19:00 Lymph # (Auto) 0.7 X10^3/uL (1.3-2.9) L 02/08/20 19:00 [place] # (Auto) 0.2 x10^3/uL (0.3-0.8) L 02/08/20 19:00 Eos # (Auto) 0.1 x10^3/uL (0.0-0.2) 02/08/20 19:00 Baso # (Auto) 0.0 X10^3/uL (0.0-0.1) 02/08/20 19:00 Absolute Nucleated RBC 0.0 /100WBC 02/08/20 19:00 Total Counted 100 02/08/20 19:00 Neutrophils % (Manual) 91 % (39-76) H 02/08/20 19:00 Lymphocytes % (Manual) 6 % (13-43) L 02/08/20 19:00 Monocytes % (Manual) 2 % (4-9) L 02/08/20 19:00 Eosinophils % (Manual) 1 % (0-6) 02/08/20 19:00 Plt Morphology Comment Normal (NORMAL) 02/08/20 19:00 RBC Morphology Abnormal (NORMAL) A 02/08/20 19:00 Anisocytosis 1+ A 02/08/20 19:00 D-Dimer 721 ng/mL (0-400) H* 02/08/20 19:00 Sample Site Rb 02/08/20 18:37 ABG pH 7.400 (7.35-7.45) 02/08/20 18:37 ABG pCO2 36.0 mmHg (35.0-45.0) 02/08/20 18:37 ABG pO2 42.0 mmHg (80.0-100.0) L* 02/08/20 18:37 ABG HCO3 22.3 mmol/L (22-26) 02/08/20 18:37 ABG O2 Saturation 77.0 % (90-100) L* 02/08/20 18:37 ABG Base Excess -2.1 mmol/L (-2.0-2.0) L 02/08/20 18:37 Sancho Test Na 02/08/20 18:37 A-a Gradient 63.0 mmHg 02/08/20 18:37 FiO2 21.0 02/08/20 18:37 Blood Gas Comments Trudy well cb 02/08/20 18:37 Sodium 137 mmol/L (136-145) 02/08/20 19:00 Corrected Sodium TNP 02/08/20 19:00 Potassium 3.3 mmol/L (3.5-5.1) L 02/08/20 19:00 Chloride 103 mmol/L (98-107) 02/08/20 19:00 Carbon Dioxide 21.6 mmol/L (21-32) 02/08/20 19:00 BUN 7 mg/dL (7-18) 02/08/20 19:00 Creatinine 0.61 mg/dL (0.55-1.02) 02/08/20 19:00 Est GFR (MDRD) Af Amer > 60 (>60) 02/08/20 19:00 Est GFR (MDRD) Non-Af > 60 (>60) 02/08/20 19:00 Glucose 110 mg/dL (65-99) H 02/08/20 19:00 Lactic Acid 1.0 mmol/L (0.4-2.0) 02/08/20 20:30 Calcium 8.4 mg/dL (8.5-10.1) L 02/08/20 19:00 Corrected Calcium 9.2 mg/dL (8.5-10.1) 02/08/20 19:00 Magnesium 1.8 mg/dL (1.7-2.9) 02/08/20 19:00 Total Bilirubin 0.20 mg/dL (0.2-1.0) 02/08/20 19:00 AST 106 Units/L (15-37) H 02/08/20 19:00 ALT 129 Units/L (12-78) H 02/08/20 19:00 Alkaline Phosphatase 171 Units/L (46-116) H 02/08/20 19:00 Creatine Kinase 63 Units/L (26-192) 02/08/20 19:00 CK-MB (CK-2) < 1.0 ng/mL (0-4.0) 02/08/20 19:00 CK/CKMB % Calc 1.6 % (<4) 02/08/20 19:00 Troponin I < 0.02 ng/mL (0-1.5) 02/08/20 19:00 B-Natriuretic Peptide 87.1 pg/mL (0-79) H 02/08/20 19:00 Total Protein 7.8 g/dL (6.4-8.2) 02/08/20 19:00 Albumin 3.0 g/dL (3.4-5.0) L 02/08/20 19:00 Globulin 4.8 g/dL (2.5-4.5) H 02/08/20 19:00 Albumin/Globulin Ratio 0.6 Ratio (1.1-2.1) L 02/08/20 19:00 RSV Nasal Swab Negative (NEGATIVE) 02/08/20 20:59 Influenza Type A (PCR) Negative (NEGATIVE) 02/08/20 20:59 Influenza Type B (PCR) Negative (NEGATIVE) 02/08/20 20:59 S. pyogenes (TEM-PCR) Not detected (NOT DETECT) 02/08/20 20:59 XRAY XRAY Interpreted by: Radiologist (REPORT NOTED AND DISCUSSED WITH PATIENT.) and Self EKG Rate: 156 [place]: Normal Rhythm: ST Hypertrophy: LVH ST: Nonsp Opioid Opioid Risk Tool Age ([place] box if 16-45): Yes History of Preadolescent Sexual Abuse: No Total: 1 Total Score Risk Category: Low Risk Copyright: [facility] predicting aberrant behaviors Diagnosis Discharge Problem: Pneumonia due to COVID-19 virus, Hypokalemia, Hypoxia Chest pain Qualifiers: Chest pain type: intercostal pain Qualified Code(s): R07.82 - Intercostal pain
[2020-02-08 18:42] LABS: ABG BASE EXCESS -2.1 mmol/L (-2.0-2.0); ABG HCO3 22.3 mmol/L (22-26)
[2020-02-08] MEDS ORDERED: MORPHINE SULFATE INJ 4 MG ONE (19:01)
[2020-02-08] MEDS ORDERED: ZOFRAN INJ 4 MG VIAL ONE (19:01)
[2020-02-08] MEDS ORDERED: NS 1000 ML 1,000 ML ONE (19:04)
[2020-02-08 19:11] LABS: BASOPHILS % (AUTO) 0.3 % (0.2-1.0); EOSINOPHILS # (AUTO) 0.1 x10^3/uL (0.0-0.2); EOSINOPHILS % (AUTO) 0.7 % (0.9-2.9); HEMATOCRIT 35.8 % (36.0-47.0); HEMOGLOBIN 11.9 g/dL (12.0-16.0); LYMPHOCYTES # (AUTO) 0.7 X10^3/uL (1.3-2.9); LYMPHOCYTES % (AUTO) 5.9 % (21.0-51.0); MEAN CORPUSCULAR HEMOGLOBIN 28.9 pg (27.0-34.0); MEAN CORPUSCULAR HGB CONC 33.2 g/dL (33.0-35.0); MEAN PLATELET VOLUME 8.6 fL (7.4-11.0); MONOCYTES # (AUTO) 0.2 x10^3/uL (0.3-0.8); NEUTROPHILS # (AUTO) 10.8 x10^3/uL (2.2-4.8); NEUTROPHILS % (AUTO) 91.1 % (42.0-75.0); PLATELET COUNT 201 X10^3/uL (150.0-450.0); RED BLOOD COUNT 4.12 X10^6/uL (3.5-5.4); RED CELL DISTRIBUTION WIDTH 20.9 % (11.6-16.5); WHITE BLOOD COUNT 11.9 X10^3/uL (3.6-10.0)
[2020-02-08] MEDS: NS 1000 ML 1,000 ML IV SCH (19:13)
[2020-02-08 19:26] LABS: BLOOD UREA NITROGEN 7 mg/dL (7-18); CALCIUM 8.4 mg/dL (8.5-10.1); CARBON DIOXIDE 21.6 mmol/L (21-32); CHLORIDE 103 mmol/L (98-107); CREATININE 0.61 mg/dL (0.55-1.02); SODIUM 137 mmol/L (136-145); TROPONIN I < 0.02 ng/mL (0-1.5); eGFR NON BLACK RACES > 60 (>60)
[2020-02-08 19:29] LABS: ALANINE AMINOTRANSFERASE 129 Units/L (12-78); ALKALINE PHOSPHATASE 171 Units/L (46-116); ASPARTATE AMINO TRANSFERASE 106 Units/L (15-37); CKMB % 1.6 % (<4); COR CA(FOR HYPOALB) 9.2 mg/dL (8.5-10.1); CREATINE KINASE 63 Units/L (26-192); CREATINE KINASE MB < 1.0 ng/mL (0-4.0); TOTAL PROTEIN 7.8 g/dL (6.4-8.2)
[2020-02-08 19:34] LABS: ANISOCYTOSIS 1+; PLATELET MORPHOLOGY COMMENT NORMAL (NORMAL)
--- NOTE | 2020-02-08 19:38 | RAD ---
HISTORYCHEST PAIN, SOB, + COVID 19 TESTINGSTUDYCHEST, 1 VIEWCOMPARISONDecember 2018FINDINGSAll support tubes and lines noted on prior study have been removed. There is slight interval improvement in the bilateral, severe airspace opacity throughout the lungs. Improvement is particularly notable in the upper lobes. There is no new pleural effusion or pneumothorax. The cardiac and mediastinal structures are stable. Bony thorax is unchanged.IMPRESSIONSlight improvement in overall cardiac and pulmonary status versus the most recent prior study..Electronically signed by: CUCA BUCK (Feb 08, 2020 19:36:56)
[2020-02-08] MEDS ORDERED: LEVAQUIN TAB 750 MG PO SCH (21:00)
[2020-02-08] MEDS ORDERED: NS 100 ML IV 100 ML IV ONE (21:08)
[2020-02-08] MEDS ORDERED: LEVAQUIN TAB 500 MG ONE (21:09)
[2020-02-08] MEDS ORDERED: LEVAQUIN TAB 250 MG ONE (21:09)
[2020-02-08] MEDS ORDERED: ZOSYN VIAL 3.375 GRAMS IV ONE (21:10)
[2020-02-08] MEDS ORDERED: NS 100 ML IV + SPIKE MINIBAG* 100 ML IV ONE (21:10)
[2020-02-08] MEDS ORDERED: MORPHINE SULFATE INJ 2 MG INJ IVP ONE (21:26)
[2020-02-08] MEDS ORDERED: MORPHINE SULFATE INJ 2 MG INJ ONE (21:30)
[2020-02-08 21:39] LABS: RSV AG DETECTION NEGATIVE (NEGATIVE)
[2020-02-08] MEDS: ZOSYN VIAL 3.375 GRAMS 3.375 G in NS 100 ML IV + SPIKE MINIBAG* 100 ML IV SCH (21:45)
[2020-02-08 21:56] LABS: STREP A BY PCR NOT DETECTED (NOT DETECT)
--- NOTE | 2020-02-08 22:00 | CT ---
STUDY: CTA CHEST WITH IV CONTRASTCOMPARISON: NoneTECHNIQUE: axial images were acquired of the chest with IV contrast for a CT angiogram. Coronal and sagittal images were provided. All images were reviewed in a variety of windows and levels. 3D 8 mm thick MIPS images were provided.RADIATION REDUCTION TECHNIQUE: Automated exposure control, Adjustment of the mA and/or kV according to patient size, or iterative reconstruction techniques were used. 8 mm thick axial MIPS images were provided.HISTORY: SOB, ELEVATED D-DIMERFINDINGS:CHEST:THYROID GLANDS: The thyroid gland is unremarkable.HEART AND VESSELS: The heart size is within normal limits.There is no evidence of pericardial effusion. Thoracic aorta is normal size without evidence of an aneurysm or dissection.Main pulmonary artery size is within normal limits. There are no filling defect seen within the visualized pulmonary arteries to suggest a pulmonary embolism.LYMPH NODES: There is no evidence of axillary, mediastinal, or hilar lymphadenopathy.AIRWAY: The trachea and mainstem bronchi are patent.No intraluminal lesions are seen.LUNGS: There is diffuse scattered areas of ground-glass opacities throughout the right and left lung involving all lobes. There are scattered areas of associated interlobular septal thickening compatible with crazy paving. No focal consolidation, pleural effusion, or pneumothorax is seen.ESOPHAGUS: The esophagus is grossly unremarkable.BONES: The visualized bones demonstrate degenerative changes. There are no concerning lytic or blastic lesions identified.UPPER ABDOMINAL STRUCTURES: The visualized upper abdominal structures demonstrates intrahepatic biliary duct dilation. This may be from gallbladder removal although this is not visualized because it is not in the field of view for the upper abdomen on this exam.IMPRESSSION:1. Diffuse scattered areas of ground-glass opacities are seen throughout the right and left lung involving all lobes with associated catheter areas compatible with crazy paving. This is highly worrisome for ARDS. The above findings demonstrate COMMON CT imaging features of COVID-19 pneumonia. However, differential diagnosis should include, but is not limited to, influenza pneumonia, organizing pneumonia, or possible drug toxicity. Clinical correlation with laboratory viral testing may be obtained as clinically indicated. Reference: Godfrey et al. Radiology. 2020.2. No evidence of pulmonary embolism, thoracic aortic aneurysm, or dissectionCOMMUNICATIONS: These findings were discussed with Dr. Kingsley of the [facility] emergency Department at 8:48 p.m. central standard time on 02/08/2020.Electronically signed by: Sammy BrooksFeb 08, 2020 21:59:07)
[2020-02-08 22:25] LABS: ABG BASE EXCESS -3.3 mmol/L (-2.0-2.0); ABG HCO3 22.1 mmol/L (22-26)
[2020-02-08] MEDS ORDERED: K-LYTE EFFERVESCENT PO ONE (22:47)
[2020-02-08] MEDS ORDERED: K-LYTE EFFERVESCENT ONE (22:48)
[2020-02-09 00:18] LABS: BILIRUBIN,URINE NEGATIVE (NEGATIVE); BLOOD/HEMOGLOBIN,URINE 1+ (NEGATIVE); GLUCOSE, URINE NEGATIVE (NEGATIVE); KETONES,URINE 1+ (NEGATIVE); LEUKOCYTE ESTERASE ,URINE NEGATIVE (NEGATIVE); NITRITES,URINE NEGATIVE (NEGATIVE); PROTEIN,URINE 2+ (NEGATIVE); UROBILINOGEN,URINE NORMAL (NORMAL)
[2020-02-09 00:45] LABS: APPEARANCE,URINE CLEAR (CLEAR); BACTERIA,URINE NEGATIVE /HPF (NEGATIVE); COLOR,URINE YELLOW (YELLOW); RBC,URINE 0-2 /HPF (0-3); SQUAMOUS EPITHELIAL CELL,UR RARE /HPF (NEGATIVE)
[2020-02-09] MEDS ORDERED: DUONEB 0.5 MG/3 MG (3 mL) NEB SCH (01:00)
[2020-02-09 01:37] VITALS: BMI 17.6
[2020-02-09] MEDS: ZOSYN VIAL 3.375 GRAMS 3.375 G in NS 100 ML IV + SPIKE MINIBAG* 100 ML IV SCH ×4 (02:18→21:06)
[2020-02-09] MEDS: MORPHINE SULFATE INJ 2 MG INJ IVP PRN ×2 (02:34→10:05)
[2020-02-09] MEDS: ZOFRAN INJ 4 MG VIAL IVP PRN ×2 (03:12→10:05)
[2020-02-09] MEDS ORDERED: APRESOLINE INJ 20 MG VIAL IVP ONE (04:47)
[2020-02-09] MEDS ORDERED: APRESOLINE INJ 20 MG VIAL ONE (04:52)
[2020-02-09 06:06] LABS: BASOPHILS % (AUTO) 0.2 % (0.2-1.0); EOSINOPHILS # (AUTO) 0.1 x10^3/uL (0.0-0.2); EOSINOPHILS % (AUTO) 0.5 % (0.9-2.9); HEMATOCRIT 35.4 % (36.0-47.0); HEMOGLOBIN 11.8 g/dL (12.0-16.0); LYMPHOCYTES # (AUTO) 0.4 X10^3/uL (1.3-2.9); LYMPHOCYTES % (AUTO) 3.1 % (21.0-51.0); MEAN CORPUSCULAR HEMOGLOBIN 29.1 pg (27.0-34.0); MEAN CORPUSCULAR HGB CONC 33.4 g/dL (33.0-35.0); MEAN CORPUSCULAR VOLUME 87.2 fL (80.0-100.0); MEAN PLATELET VOLUME 8.7 fL (7.4-11.0); MONOCYTES # (AUTO) 0.2 x10^3/uL (0.3-0.8); MONOCYTES % (AUTO) 1.9 % (0.0-13.0); NEUTROPHILS # (AUTO) 11.4 x10^3/uL (2.2-4.8); NEUTROPHILS % (AUTO) 94.3 % (42.0-75.0); PLATELET COUNT 209 X10^3/uL (150.0-450.0); RED BLOOD COUNT 4.06 X10^6/uL (3.5-5.4); RED CELL DISTRIBUTION WIDTH 20.7 % (11.6-16.5); WHITE BLOOD COUNT 12.1 X10^3/uL (3.6-10.0)
[2020-02-09 06:19] LABS: ALANINE AMINOTRANSFERASE 150 Units/L (12-78); ALBUMIN 2.9 g/dL (3.4-5.0); ALKALINE PHOSPHATASE 187 Units/L (46-116); ASPARTATE AMINO TRANSFERASE 117 Units/L (15-37); BLOOD UREA NITROGEN 4 mg/dL (7-18); CALCIUM 8.8 mg/dL (8.5-10.1); CARBON DIOXIDE 23.6 mmol/L (21-32); CHLORIDE 100 mmol/L (98-107); COR CA(FOR HYPOALB) 9.7 mg/dL (8.5-10.1); COR NA(FOR HYPERGLY) 135 mmol/L (136-145); CREATININE 0.47 mg/dL (0.55-1.02); SODIUM 134 mmol/L (136-145); TOTAL PROTEIN 7.9 g/dL (6.4-8.2); eGFR NON BLACK RACES > 60 (>60)
[2020-02-09 06:35] LABS: BAND NEUTROPHILS % 7 % (0-10); PLATELET MORPHOLOGY COMMENT NORMAL (NORMAL)
[2020-02-09 06:36] LABS: ANISOCYTOSIS 1+
[2020-02-09 07:39] LABS: BILIRUBIN,URINE NEGATIVE (NEGATIVE); BLOOD/HEMOGLOBIN,URINE 1+ (NEGATIVE); GLUCOSE, URINE NEGATIVE (NEGATIVE); KETONES,URINE 2+ (NEGATIVE); LEUKOCYTE ESTERASE ,URINE NEGATIVE (NEGATIVE); NITRITES,URINE NEGATIVE (NEGATIVE); PROTEIN,URINE 3+ (NEGATIVE); UROBILINOGEN,URINE NORMAL (NORMAL)
[2020-02-09 07:45] LABS: APPEARANCE,URINE CLEAR (CLEAR); COLOR,URINE YELLOW (YELLOW)
[2020-02-09 07:46] LABS: BACTERIA,URINE NEGATIVE /HPF (NEGATIVE); MUCUS,URINE FEW /HPF (NEGATIVE); RBC,URINE 0-2 /HPF (0-3); SQUAMOUS EPITHELIAL CELL,UR NEGATIVE /HPF (NEGATIVE)
--- NOTE | 2020-02-09 08:33 | DR.H&P ---
H&P History & Physical for Day of: H&P Date: 02/09/20 Chief Complaint Chief Complaint: Fever, body aches, shortness of breath Allergies Allergies Allergy/AdvReac Type Severity Reaction Status Date / Time No Known Drug Allergies Allergy Verified 10/31/19 08:38 History of Present Illness History of Present Illness: Pt is a 44 yo f pmhx HTN admitted after having inc reasing shortness of breath and chest pain since last night. She reports fevers, chills, body aches. States she has been home mostly with her children due to current COVID-19 pandemic. She states she has minimal productive cough and poor appetite. She is a smoker. Wbc 12.1, Hgb 11.8, Plt 209, D-dimer 721, ABG:pH 7.35, PCO2 40, PO2 145, HCO3 22, SpO2 99%, K 3.3, Na 134, Cr 0.47, Gluc 121, AST 117, ALT 150, AlkP 187, UA unremarkable, RSV/Flu/Strep negative. ABG showed pt was hypoxic. She was started on non-rebreather. Abx:Levaquin, Zosyn. -CTA:1. Diffuse scattered areas of ground-glass opacities are seen throughout the right and left lung involving all lobes with associated catheter areas compatible with crazy paving. This is highly worrisome for ARDS. The above findings demonstrate COMMON CT imaging features of COVID-19 pneumonia. However, differential diagnosis should include, but is not limited to, influenza pneumonia, organizing pneumonia, or possible drug toxicity. Clinical correlation with laboratory viral testing may be obtained as clinically indicated. 2. No evidence of pulmonary embolism, thoracic aortic aneurysm, or dissection. -Pt was started on pneumonia protocol. IV steroids. Pt with increased work of breathing causing respiratory fatigue. Will need to be intubated and placed on mechanical ventilation. -Critical time spent 30-74 minutes. Past Medical History Past Medical History: Hypertension Additional Medical History: Hiatal Hernia, Chronic Pancreatitis Past Surgical History Surgical History: Abdominal Surgery and Hysterectomy Additional Surgical History: Hernia Repair Family History Family Medical History: Diabetes Mellitus, Coronary Artery Disease and Hypertension Social History Does patient currently use any type of tobacco product: Yes Have you used tobacco products in the last 12 months: Yes Type of Tobacco Use: Cigarettes How many years tobacco product used: 15 Does any household member use tobacco: Yes Alcohol Use: None Drug Use: Prescription Drugs Medications Home Medications: No Known Drug Allergies Allergy (Verified 10/31/19 08:38) Labs Result Diagrams: 02/09/20 05:36 02/09/20 05:36 Labs: Laboratory WBC 12.1 X10^3/uL (3.6-10.0) H 02/09/20 05:36 RBC 4.06 X10^6/uL (3.5-5.4) 02/09/20 05:36 Hgb 11.8 g/dL (12.0-16.0) L 02/09/20 05:36 Hct 35.4 % (36.0-47.0) L 02/09/20 05:36 MCV 87.2 fL (80.0-100.0) 02/09/20 05:36 MCH 29.1 pg (27.0-34.0) 02/09/20 05:36 MCHC 33.4 g/dL (33.0-35.0) 02/09/20 05:36 RDW 20.7 % (11.6-16.5) H 02/09/20 05:36 Plt Count 209 X10^3/uL (150.0-450.0) 02/09/20 05:36 Plt Count Comment Adequate (ADEQUATE) 02/09/20 05:36 MPV 8.7 fL (7.4-11.0) 02/09/20 05:36 Neut % (Auto) 94.3 % (42.0-75.0) H 02/09/20 05:36 Lymph % (Auto) 3.1 % (21.0-51.0) L 02/09/20 05:36 [place] % (Auto) 1.9 % (0.0-13.0) 02/09/20 05:36 Eos % (Auto) 0.5 % (0.9-2.9) L 02/09/20 05:36 Baso % (Auto) 0.2 % (0.2-1.0) 02/09/20 05:36 Neut # (Auto) 11.4 x10^3/uL (2.2-4.8) H 02/09/20 05:36 Lymph # (Auto) 0.4 X10^3/uL (1.3-2.9) L 02/09/20 05:36 [place] # (Auto) 0.2 x10^3/uL (0.3-0.8) L 02/09/20 05:36 Eos # (Auto) 0.1 x10^3/uL (0.0-0.2) 02/09/20 05:36 Baso # (Auto) 0.0 X10^3/uL (0.0-0.1) 02/09/20 05:36 Absolute Nucleated RBC 0.0 /100WBC 02/09/20 05:36 Total Counted 100 02/09/20 05:36 Neutrophils % (Manual) 83 % (39-76) H 02/09/20 05:36 Band Neutrophils % 7 % (0-10) 02/09/20 05:36 Lymphocytes % (Manual) 9 % (13-43) L 02/09/20 05:36 Monocytes % (Manual) 1 % (4-9) L 02/09/20 05:36 Eosinophils % (Manual) 1 % (0-6) 02/08/20 19:00 Plt Morphology Comment Normal (NORMAL) 02/09/20 05:36 RBC Morphology Abnormal (NORMAL) A 02/09/20 05:36 Anisocytosis 1+ A 02/09/20 05:36 PT 14.1 SECONDS (11.8-14.3) 02/09/20 05:36 INR Target Range - 02/09/20 05:36 INR 1.12 (0.8-1.3) 02/09/20 05:36 APTT 33.8 SECONDS (22.9-36.5) 02/09/20 05:36 PTT Comment - 02/09/20 05:36 D-Dimer 721 ng/mL (0-400) H* 02/08/20 19:00 Sample Site Rbra 02/08/20 22:20 ABG pH 7.350 (7.35-7.45) 02/08/20 22:20 ABG pCO2 40.0 mmHg (35.0-45.0) 02/08/20 22:20 ABG pO2 145.0 mmHg (80.0-100.0) H 02/08/20 22:20 ABG HCO3 22.1 mmol/L (22-26) 02/08/20 22:20 ABG O2 Saturation 99.0 % (90-100) 02/08/20 22:20 ABG Base Excess -3.3 mmol/L (-2.0-2.0) L 02/08/20 22:20 Sancho Test Na 02/08/20 22:20 A-a Gradient 518.0 mmHg 02/08/20 22:20 FiO2 100.0 02/08/20 22:20 Blood Gas Comments Trudy abg well-mtf 02/08/20 22:20 Sodium 134 mmol/L (136-145) L 02/09/20 05:36 Corrected Sodium 135 mmol/L (136-145) L 02/09/20 05:36 Potassium 3.6 mmol/L (3.5-5.1) 02/09/20 05:36 Chloride 100 mmol/L (98-107) 02/09/20 05:36 Carbon Dioxide 23.6 mmol/L (21-32) 02/09/20 05:36 BUN 4 mg/dL (7-18) L 02/09/20 05:36 Creatinine 0.47 mg/dL (0.55-1.02) L 02/09/20 05:36 Est GFR (MDRD) Af Amer > 60 (>60) 02/09/20 05:36 Est GFR (MDRD) Non-Af > 60 (>60) 02/09/20 05:36 Glucose 121 mg/dL (65-99) H 02/09/20 05:36 Lactic Acid 1.0 mmol/L (0.4-2.0) 02/08/20 20:30 Calcium 8.8 mg/dL (8.5-10.1) 02/09/20 05:36 Corrected Calcium 9.7 mg/dL (8.5-10.1) 02/09/20 05:36 Magnesium 1.8 mg/dL (1.7-2.9) 02/08/20 19:00 Total Bilirubin 0.30 mg/dL (0.2-1.0) 02/09/20 05:36 AST 117 Units/L (15-37) H 02/09/20 05:36 ALT 150 Units/L (12-78) H 02/09/20 05:36 Alkaline Phosphatase 187 Units/L (46-116) H 02/09/20 05:36 Creatine Kinase 63 Units/L (26-192) 02/08/20 19:00 CK-MB (CK-2) < 1.0 ng/mL (0-4.0) 02/08/20 19:00 CK/CKMB % Calc 1.6 % (<4) 02/08/20 19:00 Troponin I < 0.02 ng/mL (0-1.5) 02/08/20 19:00 B-Natriuretic Peptide 87.1 pg/mL (0-79) H 02/08/20 19:00 Total Protein 7.9 g/dL (6.4-8.2) 02/09/20 05:36 Albumin 2.9 g/dL (3.4-5.0) L 02/09/20 05:36 Globulin 5.0 g/dL (2.5-4.5) H 02/09/20 05:36 Albumin/Globulin Ratio 0.6 Ratio (1.1-2.1) L 02/09/20 05:36 Specimen Type Catherized urine 02/09/20 06:45 Urine Color Yellow (YELLOW) 02/09/20 06:45 Urine Appearance Clear (CLEAR) 02/09/20 06:45 Urine pH 6.0 (5.0 - 8.0) 02/09/20 06:45 Ur Specific [place] 1.010 (1.000-1.030) 02/09/20 06:45 Urine Protein 3+ (NEGATIVE) 02/09/20 06:45 Urine Glucose (UA) Negative (NEGATIVE) 02/09/20 06:45 Urine Ketones 2+ (NEGATIVE) 02/09/20 06:45 Urine Occult Blood 1+ (NEGATIVE) 02/09/20 06:45 Urine Nitrite Negative (NEGATIVE) 02/09/20 06:45 Urine Bilirubin Negative (NEGATIVE) 02/09/20 06:45 Urine Urobilinogen Normal (NORMAL) 02/09/20 06:45 Ur Leukocyte Esterase Negative (NEGATIVE) 02/09/20 06:45 Urine RBC 0-2 /HPF (0-3) 02/09/20 06:45 Urine WBC None seen /HPF (0-5) 02/09/20 06:45 Ur Squamous Epith Cells Negative /HPF (NEGATIVE) 02/09/20 06:45 Urine Bacteria Negative /HPF (NEGATIVE) 04/06/20 06:45 Urine Mucus Few /HPF (NEGATIVE) 02/09/20 06:45 Ur Culture Indicated? No/not indicated 02/09/20 06:45 RSV Nasal Swab Negative (NEGATIVE) 02/08/20 20:59 Influenza Type A (PCR) Negative (NEGATIVE) 02/08/20 20:59 Influenza Type B (PCR) Negative (NEGATIVE) 02/08/20 20:59 S. pyogenes (TEM-PCR) Not detected (NOT DETECT) 02/08/20 20:59 Review of Systems Constitutional: Fever, Chills, Sweats and Malaise ENT: No Symptoms Reported Respiratory: Cough, Shortness of Breath, Sputum and Wheezing Cardiovascular: Chest Pain Gastrointestinal: Nausea Musculoskeletal: No Symptoms Reported Skin: No Symptoms Reported Neurological: No Symptoms Reported Physical Exam Vital Signs: Temperature 98.4 F Pulse Rate [Right Brachial] 98 Pulse Rate 113 Respiratory Rate 48 Blood Pressure [Right Arm] 126/66 Blood Pressure [Left Arm] 137/85 Blood Pressure [Right Arm] 156/92 Blood Pressure 191/99 O2 Sat by Pulse Oximetry 96 Oriented: Normal Eyes: Normal Ear: Normal Nose: Normal Respiratory: Diminished Throughout and Wheezes Throughout Cardiovascular: Tachycardia : Normal Auscultation: Bowel Sounds: Normal Palpation: Normal Tenderness: Normal Skin: Diaphoresis Musculoskeletal: Normal Mood Description: Anxious Speech Pattern: Clear Assessment/Plan (1) ARDS (adult respiratory distress syndrome): Status: Acute Plan: Pt w/ fatigue from increased work of breathing and ARDS. Pt to be intubated and placed on mechanical ventilator. Continue to monitor respiratory status. (2) Acute respiratory failure: Status: Acute Plan: (3) Multifocal pneumonia: Status: Inactive (4) Hypertension: Qualifiers: Hypertension type: essential hypertension Qualified Code(s): I10 - Essential (primary) hypertension Status: Chronic (5) Asthma: Status: Chronic (6) Hypoxia: Status: Acute Review H&P Reviewed: Yes Patient was examined?: Yes
[2020-02-09] MEDS ORDERED: ATIVAN INJ 2 MG VIAL IVP ONE (09:06)
[2020-02-09 09:23] LABS: ABG BASE EXCESS 1.5 mmol/L (-2.0-2.0); ABG HCO3 26.6 mmol/L (22-26)
[2020-02-09] MEDS: SOLU-Medrol 125 MG VIAL IVP SCH ×3 (10:07→21:06)
[2020-02-09] MEDS: NS 1000 ML 1,000 ML IV SCH ×2 (10:07→18:34)
[2020-02-09] MEDS: PLAQUENIL PO SCH ×3 (10:08→21:06)
[2020-02-09] MEDS: VITAMIN C PO SCH (10:09)
[2020-02-09] MEDS: ZINC SULFATE PO SCH ×2 (10:09→21:07)
[2020-02-09] MEDS ORDERED: ZESTRIL TAB 20 MG ONE (13:42)
[2020-02-09] MEDS: NORVASC TAB 10 MG PO SCH (13:45)
[2020-02-09] MEDS: ZESTRIL TAB 20 MG PO SCH (13:45)
[2020-02-09] MEDS ORDERED: DIPRIVAN PREMIX 1 GRAM IV 1,000 MG/100 ML VIAL ONE (14:46)
[2020-02-09] MEDS ORDERED: DIPRIVAN VIAL 20 ML ONE (14:46)
[2020-02-09] MEDS ORDERED: QUELICIN (OR ANECTINE) ONE (14:47)
[2020-02-09] MEDS ORDERED: DIPRIVAN PREMIX 1 GRAM IV 1,000 MG/100 ML VIAL IV PRN (14:52)
[2020-02-09] MEDS ORDERED: DIPRIVAN VIAL IVP ONE (15:30)
[2020-02-09] MEDS ORDERED: QUELICIN (OR ANECTINE) IVP ONE (15:30)
[2020-02-09] MEDS: ZEMURON IV SCH ×2 (15:40)
[2020-02-09] MEDS: NS IV SCH ×2 (15:40)
[2020-02-09] MEDS ORDERED: VERSED 100 MG in NS 100 ML IV 80 ML IV PRN (16:20)
[2020-02-09 17:10] LABS: ABG BASE EXCESS 1.9 mmol/L (-2.0-2.0); ABG HCO3 26.6 mmol/L (22-26)
[2020-02-09 17:11] LABS: ABG ALLEN TEST POS
--- NOTE | 2020-02-09 17:15 | RAD ---
HISTORYET TUBE, CENTRAL LINE PLACEMENT, POSTIVE COVID-19STUDYCHEST, 1 VIEWCOMPARISONYesterdayFINDINGSThe trachea is midline. The cardiac silhouette is unremarkable. There is an ET tube noted with tip at the level of clavicles. A right-sided IJ line is noted with tip overlying the distal SVC. There is an NG tube which is not completely included in the field of view. The lungs appear stable however please note the lower lobes are not evaluated as the costophrenic angles are not included in the film. The bony thorax is unremarkable.IMPRESSIONLine and tube placement as above otherwise grossly stable chestElectronically signed by: CHEY BE (Feb 09, 2020 17:14:01)
--- NOTE | 2020-02-09 17:15 | RAD ---
HISTORYNG TUBE PLACEMENT, POSTIVE COVID-19 PATIENT HTN, ABD SX, HYSTERECTOMYSTUDYKUBCOMPARISONNoneFINDINGSEvaluation of the abdomen demonstrates a normal bowel gas p attern. NG tube is noted with tip in the stomach no pathological soft tissue mass or calcification ca n be observed. The bony structures are grossly intact.IMPRESSIONNo evidence for acute abdominal path ology identified.Electronically signed by: CHEY BE (Feb 09, 2020 17:14:25)
[2020-02-09] MEDS ORDERED: TRANSDERM-SCOP TD ONE (17:39)
[2020-02-09] MEDS: VERSED 100 MG in NS 100 ML IV 80 ML IV PRN (18:33)
[2020-02-09] MEDS: TRANSDERM-SCOP TD SCH (18:34)
[2020-02-09] MEDS: CHECK PATCH XX SCH ×2 (18:35→21:00)
--- NOTE | 2020-02-09 19:17 | DR.UPDATE ---
H&P Update History and Physical Update: History and Physical reviewed and patient examined. Changes noted: NO Yes with the following:will intubate and place central line Prescription drug monitoring program results: PDMP reviewed and no concerns identified H&P Reviewed: Yes Patient was examined?: Yes Procedures (ALL) - Central Line Placement PCM.CLCO: verbal consent Time out performed: Yes Patient placed pm monitor/pulse ox: Yes MD prep: mask, gown, gloves, other Centrial line prep: chlorhexidine scrub Local anesthsia used: lidocane 1% Ultrasound used for placement: Yes (right ij id'd) Central line lumen ininserted: triple Post procedure: sutured in place, good blood return, all ports aspirated, flushed,capped, sterile dressing applied Post procedure xray: tip oc catheter in good position Patient tolerated procedure: Yes Complications: none - Intubation Time out performed: Yes Sedative: other (propofol 140mg) paralytic: succinylchline (100mg, followed by rocuronium 40mg after return of spontan resp) Laryngoscope: fiber optic video scope ([email or web address]) ET tube size: 7.5 Tube secured depth: 20 Tube secured location: teeth Tube placement confirmation: visualized tube passing through cords, equal breath sounds bilaterally, no breath sounds over epigastrium, comfirmation by capnometer Patient tolerated procedure: Yes Intubation complications: none
[2020-02-09] MEDS: PROTONIX INJ 40 MG VIAL IVP SCH (20:25)
[2020-02-09] MEDS: LACRI-LUBE S.O.P. AFFEYE SCH (20:26)
[2020-02-09] MEDS: LOVENOX INJ 30 MG SYR SC SCH (20:27)
[2020-02-09] MEDS ORDERED: NS 50 ML IV 50 ML IV ONE (22:31)
[2020-02-10] MEDS: NS IV SCH ×4 (00:31→16:46)
[2020-02-10] MEDS: ZEMURON IV SCH ×4 (00:31→16:46)
[2020-02-10] MEDS: VERSED 100 MG in NS 100 ML IV 80 ML IV PRN ×2 (03:30→14:06)
[2020-02-10] MEDS: NS 1000 ML 1,000 ML IV SCH ×3 (03:53→16:48)
[2020-02-10] MEDS ORDERED: LOPRESSOR INJ 5 MG AMP ONE (04:08)
[2020-02-10] MEDS ORDERED: LOPRESSOR INJ 5 MG AMP IVP SCH (05:00)
[2020-02-10] MEDS: SOLU-Medrol 125 MG VIAL IVP SCH ×3 (05:18→21:14)
[2020-02-10] MEDS: ZOSYN VIAL 3.375 GRAMS 3.375 G in NS 100 ML IV + SPIKE MINIBAG* 100 ML IV SCH ×3 (05:19→21:14)
[2020-02-10] MEDS: PLAQUENIL PO SCH ×3 (05:20→21:14)
[2020-02-10 05:51] LABS: ABG BASE EXCESS 4.2 mmol/L (-2.0-2.0); ABG HCO3 27.3 mmol/L (22-26)
[2020-02-10 05:53] LABS: ABG ALLEN TEST POS
[2020-02-10 06:04] LABS: BASOPHILS % (AUTO) 0.1 % (0.2-1.0); HEMATOCRIT 32.1 % (36.0-47.0); HEMOGLOBIN 10.8 g/dL (12.0-16.0); LYMPHOCYTES # (AUTO) 0.6 X10^3/uL (1.3-2.9); LYMPHOCYTES % (AUTO) 9.9 % (21.0-51.0); MEAN CORPUSCULAR HEMOGLOBIN 28.9 pg (27.0-34.0); MEAN CORPUSCULAR HGB CONC 33.6 g/dL (33.0-35.0); MEAN CORPUSCULAR VOLUME 86.2 fL (80.0-100.0); MEAN PLATELET VOLUME 8.5 fL (7.4-11.0); MONOCYTES # (AUTO) 0.2 x10^3/uL (0.3-0.8); MONOCYTES % (AUTO) 2.7 % (0.0-13.0); NEUTROPHILS # (AUTO) 4.9 x10^3/uL (2.2-4.8); NEUTROPHILS % (AUTO) 87.3 % (42.0-75.0); PLATELET COUNT 231 X10^3/uL (150.0-450.0); RED BLOOD COUNT 3.73 X10^6/uL (3.5-5.4); RED CELL DISTRIBUTION WIDTH 20.8 % (11.6-16.5); WHITE BLOOD COUNT 5.7 X10^3/uL (3.6-10.0)
[2020-02-10 06:14] LABS: ALANINE AMINOTRANSFERASE 88 Units/L (12-78); ALBUMIN 2.5 g/dL (3.4-5.0); ALKALINE PHOSPHATASE 142 Units/L (46-116); ASPARTATE AMINO TRANSFERASE 35 Units/L (15-37); BLOOD UREA NITROGEN 10 mg/dL (7-18); CALCIUM 8.5 mg/dL (8.5-10.1); CARBON DIOXIDE 28.2 mmol/L (21-32); CHLORIDE 101 mmol/L (98-107); COR CA(FOR HYPOALB) 9.7 mg/dL (8.5-10.1); COR NA(FOR HYPERGLY) 138 mmol/L (136-145); CREATININE 0.47 mg/dL (0.55-1.02); SODIUM 137 mmol/L (136-145); TOTAL PROTEIN 7.4 g/dL (6.4-8.2); eGFR NON BLACK RACES > 60 (>60)
[2020-02-10 06:25] LABS: ANISOCYTOSIS 1+; PLATELET MORPHOLOGY COMMENT NORMAL (NORMAL)
[2020-02-10] MEDS ORDERED: ZESTRIL TAB 20 MG ONE (07:38)
--- NOTE | 2020-02-10 07:38 | RAD ---
HISTORYPNEUMONIA, POSSIBLE [id number], 1 VIEWCOMPARISONCT chest February 08, 2020 and portable chest February 08, 2020.FINDINGSThe trachea is midline. Endotracheal tube is in place with tip in good position 6.6 cm above the glenn in NG tube is in place with the tip well below the diaphragm. Right internal jugular central venous catheter is in place tip at the junction of the superior vena cava to the right atrium.. The cardiac silhouette is unremarkable. There is improved aeration bilaterally following intubation on prior chest film of February 08, 2020. Persistent interstitial infiltrate seen in the right lung base medially.. The bony thorax is unremarkable.IMPRESSIONInterstitial infiltrate is seen in the right lung base medially but there is significantly improved aeration of both lungs compared to the last chest film February 08, 2020.ET tube, NG tube and right internal jugular central venous catheters are in place.Electronically signed by: OVIDIO ABBOTT (Feb 10, 2020 07:36:00)
[2020-02-10] MEDS ORDERED: APRESOLINE INJ 20 MG VIAL IVP PRN (08:21)
[2020-02-10] MEDS: ZINC SULFATE PO SCH ×2 (09:09→20:54)
[2020-02-10] MEDS: PROTONIX INJ 40 MG VIAL IVP SCH (09:09)
--- NOTE | 2020-02-10 09:09 | PCM.PROG ---
Progress Note Progress Note for Day of Date of Exam: 02/10/20 Subjective Subjective: Pt is a 44 yo f pmhx HTN admitted for pneumonia and COVID-19 rule out. Pt was intubated and placed on mechanical ventilator yesterday after having increased work of breathing and respiratory fatigue. Labs/Imaging:CXR: Interstitial infiltrate is seen in the right lung base medially but there is significantly improved aeration of both lungs compared to the last chest film. COVID pending, ABG:pH 7.5/35/194/27/100% on FiO2 40%, Wbc 5.7, Hgb 10.8, Plt 231, Na 137, K 3.3, Cr 0.47, Gluc 145, AST 35, ALT 88, AlkP 187, CRP 205, Abx: Zosyn. Continue Hydroxychloroquine, Zinc, Vit C. Will adjust vent settings and recheck ABG in 2-3 hours. Continue to monitor and follow up labs in the morning. Past Medical Family Social History Past Med/Fam/Surg Hx: No changes since H&P Allergies: Allergies No Known Drug Allergies Allergy (Verified 10/31/19 08:38) Review of Systems ROS: No change since H&P Vital Signs and I&O's Vital Signs: Temperature 99.3 F Pulse Rate [Right Brachial] 98 Pulse Rate 115 Respiratory Rate 22 Blood Pressure [Right Arm] 126/66 Blood Pressure [Left Arm] 137/85 Blood Pressure [Right Arm] 156/92 Blood Pressure 173/109 O2 Sat by Pulse Oximetry 99 Intake and Output: Intake & Output 02/07/20 02/08/20 02/09/20 02/10/20 23:59 23:59 23:59 23:59 Intake Total 2307 / 2307 250 / 250 Output Total 1251 / 1251 300 / 300 Balance 1056 / 1056 -50 / -50 Physical Exam Oriented: Unable to test Ear: Normal Nose: Normal Respiratory: Wheezes and Rales Cardiovascular: Tachycardia Auscultation: Bowel Sounds: Normal Tenderness: Normal Skin: Normal Speech Pattern: Artificially Ventilated Laboratory and Diagnostics Result Diagrams: 02/10/20 05:28 02/10/20 05:28 Labs: Laboratory WBC 5.7 X10^3/uL (3.6-10.0) 02/10/20 05:28 RBC 3.73 X10^6/uL (3.5-5.4) 02/10/20 05:28 Hgb 10.8 g/dL (12.0-16.0) L 02/10/20 05:28 Hct 32.1 % (36.0-47.0) L 02/10/20 05:28 MCV 86.2 fL (80.0-100.0) 02/10/20 05:28 MCH 28.9 pg (27.0-34.0) 02/10/20 05:28 MCHC 33.6 g/dL (33.0-35.0) 02/10/20 05:28 RDW 20.8 % (11.6-16.5) H 02/10/20 05:28 Plt Count 231 X10^3/uL (150.0-450.0) 02/10/20 05:28 Plt Count Comment Adequate (ADEQUATE) 02/10/20 05:28 MPV 8.5 fL (7.4-11.0) 02/10/20 05:28 Neut % (Auto) 87.3 % (42.0-75.0) H 02/10/20 05:28 Lymph % (Auto) 9.9 % (21.0-51.0) L 02/10/20 05:28 [place] % (Auto) 2.7 % (0.0-13.0) 02/10/20 05:28 Eos % (Auto) 0.0 % (0.9-2.9) L 02/10/20 05:28 Baso % (Auto) 0.1 % (0.2-1.0) L 02/10/20 05:28 Neut # (Auto) 4.9 x10^3/uL (2.2-4.8) H 02/10/20 05:28 Lymph # (Auto) 0.6 X10^3/uL (1.3-2.9) L 02/10/20 05:28 [place] # (Auto) 0.2 x10^3/uL (0.3-0.8) L 02/10/20 05:28 Eos # (Auto) 0.0 x10^3/uL (0.0-0.2) 02/10/20 05:28 Baso # (Auto) 0.0 X10^3/uL (0.0-0.1) 02/10/20 05:28 Absolute Nucleated RBC 0.0 /100WBC 02/10/20 05:28 Total Counted 100 02/09/20 05:36 Neutrophils % (Manual) 83 % (39-76) H 02/09/20 05:36 Band Neutrophils % 7 % (0-10) 02/09/20 05:36 Lymphocytes % (Manual) 9 % (13-43) L 02/09/20 05:36 Monocytes % (Manual) 1 % (4-9) L 02/09/20 05:36 Eosinophils % (Manual) 1 % (0-6) 02/08/20 19:00 Plt Morphology Comment Normal (NORMAL) 02/10/20 05:28 RBC Morphology Abnormal (NORMAL) A 02/10/20 05:28 Anisocytosis 1+ A 02/10/20 05:28 PT 14.1 SECONDS (11.8-14.3) 02/09/20 05:36 INR Target Range - 02/09/20 05:36 INR 1.12 (0.8-1.3) 02/09/20 05:36 APTT 33.8 SECONDS (22.9-36.5) 02/09/20 05:36 PTT Comment - 02/09/20 05:36 D-Dimer 721 ng/mL (0-400) H* 02/08/20 19:00 Sample Site Rrad 02/10/20 05:47 ABG pH 7.500 (7.35-7.45) H 02/10/20 05:47 ABG pCO2 35.0 mmHg (35.0-45.0) 02/10/20 05:47 ABG pO2 194.0 mmHg (80.0-100.0) H 02/10/20 05:47 ABG HCO3 27.3 mmol/L (22-26) H 02/10/20 05:47 ABG O2 Saturation 100.0 % (90-100) 02/10/20 05:47 ABG Base Excess 4.2 mmol/L (-2.0-2.0) H 02/10/20 05:47 Sancho Test Pos 02/10/20 05:47 A-a Gradient 47.0 mmHg 02/10/20 05:47 FiO2 40.0 02/10/20 05:47 Blood Gas Comments Trudy well-mtf 02/10/20 05:47 Sodium 137 mmol/L (136-145) 02/10/20 05:28 Corrected Sodium 138 mmol/L (136-145) 02/10/20 05:28 Potassium 3.3 mmol/L (3.5-5.1) L 02/10/20 05:28 Chloride 101 mmol/L (98-107) 02/10/20 05:28 Carbon Dioxide 28.2 mmol/L (21-32) 02/10/20 05:28 BUN 10 mg/dL (7-18) 02/10/20 05:28 Creatinine 0.47 mg/dL (0.55-1.02) L 02/10/20 05:28 Est GFR (MDRD) Af Amer > 60 (>60) 02/10/20 05:28 Est GFR (MDRD) Non-Af > 60 (>60) 02/10/20 05:28 Glucose 145 mg/dL (65-99) H 02/10/20 05:28 Lactic Acid 1.0 mmol/L (0.4-2.0) 02/08/20 20:30 Calcium 8.5 mg/dL (8.5-10.1) 02/10/20 05:28 Corrected Calcium 9.7 mg/dL (8.5-10.1) 02/10/20 05:28 Magnesium 1.8 mg/dL (1.7-2.9) 02/08/20 19:00 Total Bilirubin 0.20 mg/dL (0.2-1.0) 02/10/20 05:28 AST 35 Units/L (15-37) 02/10/20 05:28 ALT 88 Units/L (12-78) H 02/10/20 05:28 Alkaline Phosphatase 142 Units/L (46-116) H 02/10/20 05:28 Creatine Kinase 63 Units/L (26-192) 02/08/20 19:00 CK-MB (CK-2) < 1.0 ng/mL (0-4.0) 02/08/20 19:00 CK/CKMB % Calc 1.6 % (<4) 02/08/20 19:00 Troponin I < 0.02 ng/mL (0-1.5) 02/08/20 19:00 C-Reactive Protein 205.60 mg/L (0-3.0) H 02/10/20 05:28 B-Natriuretic Peptide 87.1 pg/mL (0-79) H 02/08/20 19:00 Total Protein 7.4 g/dL (6.4-8.2) 02/10/20 05:28 Albumin 2.5 g/dL (3.4-5.0) L 02/10/20 05:28 Globulin 4.9 g/dL (2.5-4.5) H 02/10/20 05:28 Albumin/Globulin Ratio 0.5 Ratio (1.1-2.1) L 02/10/20 05:28 Specimen Type Catherized urine 02/09/20 06:45 Urine Color Yellow (YELLOW) 02/09/20 06:45 Urine Appearance Clear (CLEAR) 02/09/20 06:45 Urine pH 6.0 (5.0 - 8.0) 02/09/20 06:45 Ur Specific [place] 1.010 (1.000-1.030) 02/09/20 06:45 Urine Protein 3+ (NEGATIVE) 02/09/20 06:45 Urine Glucose (UA) Negative (NEGATIVE) 02/09/20 06:45 Urine Ketones 2+ (NEGATIVE) 02/09/20 06:45 Urine Occult Blood 1+ (NEGATIVE) 02/09/20 06:45 Urine Nitrite Negative (NEGATIVE) 02/09/20 06:45 Urine Bilirubin Negative (NEGATIVE) 02/09/20 06:45 Urine Urobilinogen Normal (NORMAL) 02/09/20 06:45 Ur Leukocyte Esterase Negative (NEGATIVE) 02/09/20 06:45 Urine RBC 0-2 /HPF (0-3) 02/09/20 06:45 Urine WBC None seen /HPF (0-5) 02/09/20 06:45 Ur Squamous Epith Cells Negative /HPF (NEGATIVE) 02/09/20 06:45 Urine Bacteria Negative /HPF (NEGATIVE) 02/09/20 06:45 Urine Mucus Few /HPF (NEGATIVE) 02/09/20 06:45 Ur Culture Indicated? No/not indicated 02/09/20 06:45 RSV Nasal Swab Negative (NEGATIVE) 02/08/20 20:59 Influenza Type A (PCR) Negative (NEGATIVE) 02/08/20 20:59 Influenza Type B (PCR) Negative (NEGATIVE) 02/08/20 20:59 S. pyogenes (TEM-PCR) Not detected (NOT DETECT) 02/08/20 20:59 Plan (1) ARDS (adult respiratory distress syndrome): Status: Acute Plan: Intubated and placed on mechanical ventilator (02/09/20) Continue to monitor respiratory status. (2) Acute respiratory failure: Status: Acute Plan: (3) Multifocal pneumonia: Status: Inactive Plan: Continue Zosyn (4) Hypertension: Status: Chronic Qualifiers: Hypertension type: essential hypertension Qualified Code(s): I10 - Essential (primary) hypertension (5) Asthma: Status: Chronic (6) Hypoxia: Status: Acute
[2020-02-10] MEDS: LOPRESSOR TAB 25 MG PO SCH ×2 (09:10→20:52)
[2020-02-10] MEDS: ZESTRIL TAB 20 MG PO SCH (09:10)
[2020-02-10] MEDS: CHECK PATCH XX SCH ×2 (09:10→20:51)
[2020-02-10] MEDS: NORVASC TAB 10 MG PO SCH (09:10)
[2020-02-10] MEDS: VITAMIN C PO SCH (09:11)
[2020-02-10] MEDS: LACRI-LUBE S.O.P. AFFEYE SCH ×2 (09:11→20:52)
[2020-02-10] MEDS: LOVENOX INJ 30 MG SYR SC SCH ×2 (09:11→20:53)
[2020-02-10 11:09] LABS: ABG BASE EXCESS 5.5 mmol/L (-2.0-2.0); ABG HCO3 28.7 mmol/L (22-26)
[2020-02-10 11:10] LABS: ABG ALLEN TEST POS
[2020-02-11] MEDS: NS 1000 ML 1,000 ML IV SCH ×3 (00:55→16:57)
[2020-02-11] MEDS: VERSED 100 MG in NS 100 ML IV 80 ML IV PRN (01:05)
[2020-02-11] MEDS ORDERED: NS 50 ML IV 50 ML IV ONE (04:07)
[2020-02-11 04:15] LABS: ABG BASE EXCESS 8.5 mmol/L (-2.0-2.0)
[2020-02-11 04:16] LABS: ABG HCO3 31.8 mmol/L (22-26)
[2020-02-11 04:17] LABS: ABG ALLEN TEST POS; FRACTIONATED INSPIRED OXYGEN 35
[2020-02-11] MEDS: ZEMURON IV SCH ×4 (04:20→09:50)
[2020-02-11] MEDS: NS IV SCH ×4 (04:20→09:50)
[2020-02-11] MEDS: PLAQUENIL PO SCH (05:58)
[2020-02-11] MEDS: ZOSYN VIAL 3.375 GRAMS 3.375 G in NS 100 ML IV + SPIKE MINIBAG* 100 ML IV SCH ×3 (05:59→21:32)
[2020-02-11] MEDS: SOLU-Medrol 125 MG VIAL IVP SCH ×3 (05:59→21:32)
[2020-02-11 06:09] LABS: BASOPHILS % (AUTO) 0.2 % (0.2-1.0); HEMATOCRIT 30.9 % (36.0-47.0); HEMOGLOBIN 10.4 g/dL (12.0-16.0); LYMPHOCYTES # (AUTO) 0.7 X10^3/uL (1.3-2.9); LYMPHOCYTES % (AUTO) 8.5 % (21.0-51.0); MEAN CORPUSCULAR HEMOGLOBIN 28.9 pg (27.0-34.0); MEAN CORPUSCULAR HGB CONC 33.5 g/dL (33.0-35.0); MEAN CORPUSCULAR VOLUME 86.3 fL (80.0-100.0); MONOCYTES # (AUTO) 0.3 x10^3/uL (0.3-0.8); MONOCYTES % (AUTO) 3.6 % (0.0-13.0); NEUTROPHILS # (AUTO) 7.6 x10^3/uL (2.2-4.8); NEUTROPHILS % (AUTO) 87.7 % (42.0-75.0); PLATELET COUNT 245 X10^3/uL (150.0-450.0); RED BLOOD COUNT 3.59 X10^6/uL (3.5-5.4); RED CELL DISTRIBUTION WIDTH 20.1 % (11.6-16.5); WHITE BLOOD COUNT 8.6 X10^3/uL (3.6-10.0)
[2020-02-11 06:19] LABS: ALANINE AMINOTRANSFERASE 62 Units/L (12-78); ALBUMIN 2.3 g/dL (3.4-5.0); ALKALINE PHOSPHATASE 114 Units/L (46-116); ASPARTATE AMINO TRANSFERASE 17 Units/L (15-37); BLOOD UREA NITROGEN 14 mg/dL (7-18); CALCIUM 8.4 mg/dL (8.5-10.1); CARBON DIOXIDE 30.2 mmol/L (21-32); CHLORIDE 104 mmol/L (98-107); COR CA(FOR HYPOALB) 9.8 mg/dL (8.5-10.1); COR NA(FOR HYPERGLY) 142 mmol/L (136-145); CREATININE 0.47 mg/dL (0.55-1.02); SODIUM 141 mmol/L (136-145); TOTAL PROTEIN 6.9 g/dL (6.4-8.2); eGFR NON BLACK RACES > 60 (>60)
[2020-02-11 06:29] LABS: ANISOCYTOSIS 1+; PLATELET MORPHOLOGY COMMENT NORMAL (NORMAL)
--- NOTE | 2020-02-11 06:37 | RAD ---
HISTORYFollow up respiratory failureSTUDYCHEST, 1 [id number]/2020FINDINGSThere is an endotracheal tube in good position. There is a nasogastric tube in good position. There is a right IJ line in good position. The heart is within normal limits in size. The right lung and left upper lung jhaveri are clear. Increased density is present in the retrocardiac area of the left lower lobe obscuring the left hemidiaphragm. This could be on the basis of pleural effusion, atelectasis, or developing infiltrate or combination. Bony thorax is unremarkable.IMPRESSIONInterval development of increasing density retrocardiac area left lower lobe obscuring the left hemidiaphragm. Differential diagnosis as aboveThe remainder of the lung jhaveri are clearElectronically signed by: MILENA PEREZ (Feb 11, 2020 06:36:09)
[2020-02-11] MEDS ORDERED: POTASSIUM CHL 60 MEQ/NS 0.45% 500 ML IV PRN (07:11)
[2020-02-11] MEDS ORDERED: KLOR-CON PO PRN (07:11)
[2020-02-11] MEDS ORDERED: MICRO K EXTEN CAP 10 MEQ PO PRN (07:11)
[2020-02-11] MEDS ORDERED: POTASSIUM CHLORIDE LIQ 20 MEQ UDC PO PRN (07:11)
[2020-02-11] MEDS ORDERED: LOPRESSOR INJ 5 MG AMP IVP ONE (07:25)
[2020-02-11] MEDS ORDERED: MORPHINE SULFATE INJ 4 MG IVP ONE (07:49)
[2020-02-11] MEDS ORDERED: PHARMACY CONSULT - VANCOMYCIN XX SCH (08:00)
[2020-02-11] MEDS ORDERED: ZESTRIL TAB 20 MG ONE (08:30)
[2020-02-11] MEDS: VANCOMYCIN HCL 1 G in D5W 250 ML IV 250 ML IV SCH ×2 (08:53→21:32)
[2020-02-11] MEDS: PROTONIX INJ 40 MG VIAL IVP SCH (08:54)
[2020-02-11] MEDS: LOVENOX INJ 30 MG SYR SC SCH ×2 (08:54→21:31)
[2020-02-11] MEDS: DIFLUCAN 200 MG IV PREMIX* 200 MG/100 ML BAG IV SCH (08:54)
[2020-02-11] MEDS: ZESTRIL TAB 20 MG PO SCH (08:55)
[2020-02-11] MEDS: NORVASC TAB 10 MG PO SCH (08:55)
[2020-02-11] MEDS: LOPRESSOR TAB 25 MG PO SCH ×2 (08:55→21:31)
[2020-02-11] MEDS: VITAMIN C PO SCH (08:56)
[2020-02-11] MEDS: LACRI-LUBE S.O.P. AFFEYE SCH ×2 (08:59→21:30)
[2020-02-11] MEDS: CHECK PATCH XX SCH ×3 (09:30→20:00)
--- NOTE | 2020-02-11 10:40 | PCM.PROG ---
Progress Note Progress Note for Day of Date of Exam: 02/11/20 Subjective Subjective: Pt is a 44 yo f pmhx HTN admitted for pneumonia. COVID-19 result returned negative today. Pt is on mechanical ventilation. Labs/Imaging:CXR: Interval development of increasing density retrocardiac area left lower lobe obscuring the left hemidiaphragm. ABG:pH 7.53/38/88/31/98% on FiO2 35%, Wbc 8.6, Hgb 10.4, Plt 245, Na 141, K 3.1(replete), Cr 0.47, Gluc 130, BloodCx:NGTD, Swab results:+Cassidy, EBV, MRSA, Strep Abx: Zosyn and will add vancomycin today. Continue IV Solumedrol. Discontinue Hydroxychloroquine, Zinc. Will wean sedation and attempt to extubate today. Pt tachycardic, ekg this morning Sinus tachycardia that may be related to withdrawal from narcotic medication, chronic pain pt. Will give IV morphine 4mg x 1 dose. Continue to monitor and follow up labs in the morning. Past Medical Family Social History Past Med/Fam/Surg Hx: No changes since H&P Allergies: Allergies No Known Drug Allergies Allergy (Verified 10/31/19 08:38) Review of Systems ROS: No change since H&P Vital Signs and I&O's Vital Signs: Temperature 99.6 F Pulse Rate [Right Brachial] 98 Pulse Rate 103 Respiratory Rate 18 Blood Pressure [Right Arm] 126/66 Blood Pressure [Left Arm] 137/85 Blood Pressure [Right Arm] 156/92 Blood Pressure 188/102 O2 Sat by Pulse Oximetry 96 Intake and Output: Intake & Output 02/08/20 02/09/20 02/10/20 02/11/20 23:59 23:59 23:59 23:59 Intake Total 2307 / 2307 1348 / 1348 508 / 508 Output Total 1251 / 1251 1300 / 1300 300 / 300 Balance 1056 / 1056 48 / 48 208 / 208 Physical Exam Oriented: Unable to test Eyes: Normal Ear: Normal Nose: Normal Respiratory: Wheezes and Rales Cardiovascular: Tachycardia : Normal Auscultation: Bowel Sounds: Normal Tenderness: Normal Skin: Normal Musculoskeletal: Normal Mood Description: Anxious Speech Pattern: Artificially Ventilated Laboratory and Diagnostics Result Diagrams: 02/11/20 05:19 02/11/20 05:19 Labs: 02/08/20 20:45 Blood Blood Culture - Preliminary 02/08/20 20:30 Blood Blood Culture - Preliminary Laboratory WBC 8.6 X10^3/uL (3.6-10.0) 02/11/20 05:19 RBC 3.59 X10^6/uL (3.5-5.4) 02/11/20 05:19 Hgb 10.4 g/dL (12.0-16.0) L 02/11/20 05:19 Hct 30.9 % (36.0-47.0) L 02/11/20 05:19 MCV 86.3 fL (80.0-100.0) 02/11/20 05:19 MCH 28.9 pg (27.0-34.0) 02/11/20 05:19 MCHC 33.5 g/dL (33.0-35.0) 02/11/20 05:19 RDW 20.1 % (11.6-16.5) H 02/11/20 05:19 Plt Count 245 X10^3/uL (150.0-450.0) 02/11/20 05:19 Plt Count Comment Adequate (ADEQUATE) 02/11/20 05:19 MPV 8.0 fL (7.4-11.0) 02/11/20 05:19 Neut % (Auto) 87.7 % (42.0-75.0) H 02/11/20 05:19 Lymph % (Auto) 8.5 % (21.0-51.0) L 02/11/20 05:19 [place] % (Auto) 3.6 % (0.0-13.0) 02/11/20 05:19 Eos % (Auto) 0.0 % (0.9-2.9) L 02/11/20 05:19 Baso % (Auto) 0.2 % (0.2-1.0) 02/11/20 05:19 Neut # (Auto) 7.6 x10^3/uL (2.2-4.8) H 02/11/20 05:19 Lymph # (Auto) 0.7 X10^3/uL (1.3-2.9) L 02/11/20 05:19 [place] # (Auto) 0.3 x10^3/uL (0.3-0.8) 02/11/20 05:19 Eos # (Auto) 0.0 x10^3/uL (0.0-0.2) 02/11/20 05:19 Baso # (Auto) 0.0 X10^3/uL (0.0-0.1) 02/11/20 05:19 Absolute Nucleated RBC 0.0 /100WBC 02/11/20 05:19 Total Counted 100 02/09/20 05:36 Neutrophils % (Manual) 83 % (39-76) H 02/09/20 05:36 Band Neutrophils % 7 % (0-10) 02/09/20 05:36 Lymphocytes % (Manual) 9 % (13-43) L 02/09/20 05:36 Monocytes % (Manual) 1 % (4-9) L 02/09/20 05:36 Eosinophils % (Manual) 1 % (0-6) 02/08/20 19:00 Plt Morphology Comment Normal (NORMAL) 02/11/20 05:19 RBC Morphology Abnormal (NORMAL) A 02/11/20 05:19 Anisocytosis 1+ A 02/11/20 05:19 PT 14.1 SECONDS (11.8-14.3) 02/09/20 05:36 INR Target Range - 02/09/20 05:36 INR 1.12 (0.8-1.3) 02/09/20 05:36 APTT 33.8 SECONDS (22.9-36.5) 02/09/20 05:36 PTT Comment - 02/09/20 05:36 D-Dimer 721 ng/mL (0-400) H* 02/08/20 19:00 Sample Site Rr 02/11/20 04:00 ABG pH 7.530 (7.35-7.45) H 02/11/20 04:00 ABG pCO2 38.0 mmHg (35.0-45.0) 02/11/20 04:00 ABG pO2 88.0 mmHg (80.0-100.0) 02/11/20 04:00 ABG HCO3 31.8 mmol/L (22-26) H* 02/11/20 04:00 ABG O2 Saturation 98.0 % (90-100) 02/11/20 04:00 ABG Base Excess 8.5 mmol/L (-2.0-2.0) H 02/11/20 04:00 Sancho Test Pos 02/11/20 04:00 A-a Gradient Not Reportable 02/11/20 04:00 FiO2 35 02/11/20 04:00 Blood Gas Comments Trudy well sw 02/11/20 04:00 Sodium 141 mmol/L (136-145) 02/11/20 05:19 Corrected Sodium 142 mmol/L (136-145) 02/11/20 05:19 Potassium 3.1 mmol/L (3.5-5.1) L 02/11/20 05:19 Chloride 104 mmol/L (98-107) 02/11/20 05:19 Carbon Dioxide 30.2 mmol/L (21-32) 02/11/20 05:19 BUN 14 mg/dL (7-18) 02/11/20 05:19 Creatinine 0.47 mg/dL (0.55-1.02) L 02/11/20 05:19 Est GFR (MDRD) Af Amer > 60 (>60) 02/11/20 05:19 Est GFR (MDRD) Non-Af > 60 (>60) 02/11/20 05:19 Glucose 130 mg/dL (65-99) H 02/11/20 05:19 Lactic Acid 1.0 mmol/L (0.4-2.0) 02/08/20 20:30 Calcium 8.4 mg/dL (8.5-10.1) L 02/11/20 05:19 Corrected Calcium 9.8 mg/dL (8.5-10.1) 02/11/20 05:19 Magnesium 2.3 mg/dL (1.7-2.9) 02/11/20 05:19 Total Bilirubin 0.20 mg/dL (0.2-1.0) 02/11/20 05:19 AST 17 Units/L (15-37) 02/11/20 05:19 ALT 62 Units/L (12-78) 02/11/20 05:19 Alkaline Phosphatase 114 Units/L (46-116) 02/11/20 05:19 Creatine Kinase 63 Units/L (26-192) 02/08/20 19:00 CK-MB (CK-2) < 1.0 ng/mL (0-4.0) 02/08/20 19:00 CK/CKMB % Calc 1.6 % (<4) 02/08/20 19:00 Troponin I < 0.02 ng/mL (0-1.5) 02/08/20 19:00 C-Reactive Protein 205.60 mg/L (0-3.0) H 02/10/20 05:28 B-Natriuretic Peptide 87.1 pg/mL (0-79) H 02/08/20 19:00 Total Protein 6.9 g/dL (6.4-8.2) 02/11/20 05:19 Albumin 2.3 g/dL (3.4-5.0) L 02/11/20 05:19 Globulin 4.6 g/dL (2.5-4.5) H 02/11/20 05:19 Albumin/Globulin Ratio 0.5 Ratio (1.1-2.1) L 02/11/20 05:19 Specimen Type Catherized urine 02/09/20 06:45 Urine Color Yellow (YELLOW) 02/09/20 06:45 Urine Appearance Clear (CLEAR) 02/09/20 06:45 Urine pH 6.0 (5.0 - 8.0) 02/09/20 06:45 Ur Specific [place] 1.010 (1.000-1.030) 02/09/20 06:45 Urine Protein 3+ (NEGATIVE) 02/09/20 06:45 Urine Glucose (UA) Negative (NEGATIVE) 02/09/20 06:45 Urine Ketones 2+ (NEGATIVE) 02/09/20 06:45 Urine Occult Blood 1+ (NEGATIVE) 02/09/20 06:45 Urine Nitrite Negative (NEGATIVE) 02/09/20 06:45 Urine Bilirubin Negative (NEGATIVE) 02/09/20 06:45 Urine Urobilinogen Normal (NORMAL) 02/09/20 06:45 Ur Leukocyte Esterase Negative (NEGATIVE) 02/09/20 06:45 Urine RBC 0-2 /HPF (0-3) 02/09/20 06:45 Urine WBC None seen /HPF (0-5) 02/09/20 06:45 Ur Squamous Epith Cells Negative /HPF (NEGATIVE) 02/09/20 06:45 Urine Bacteria Negative /HPF (NEGATIVE) 02/09/20 06:45 Urine Mucus Few /HPF (NEGATIVE) 02/09/20 06:45 Ur Culture Indicated? No/not indicated 02/09/20 06:45 RSV Nasal Swab Negative (NEGATIVE) 02/08/20 20:59 Influenza Type A (PCR) Negative (NEGATIVE) 02/08/20 20:59 Influenza Type B (PCR) Negative (NEGATIVE) 02/08/20 20:59 S. pyogenes (TEM-PCR) Not detected (NOT DETECT) 02/08/20 20:59 Plan (1) ARDS (adult respiratory distress syndrome): Status: Acute Plan: Intubated and placed on mechanical ventilator (02/09/20) Continue to monitor respiratory status. (2) Acute respiratory failure: Status: Acute Plan: (3) Multifocal pneumonia: Status: Inactive Plan: Continue Zosyn (4) Hypertension: Status: Chronic Qualifiers: Hypertension type: essential hypertension Qualified Code(s): I10 - Essential (primary) hypertension (5) Asthma: Status: Chronic (6) Hypoxia: Status: Acute
[2020-02-11] MEDS: MORPHINE SULFATE INJ 2 MG INJ IVP PRN ×2 (15:41→20:02)
[2020-02-11] MEDS: POTASSIUM CHL 40 MEQ/NS 0.45% 500 ML IV PRN (15:41)
[2020-02-11] MEDS: XOPENEX 1.25 MG/3 ML NEBULE NEB SCH (18:00)
[2020-02-11] MEDS ORDERED: DUONEB 0.5 MG/3 MG (3 mL) NEB SCH (19:00)
[2020-02-11] MEDS: TRANSDERM-SCOP TD SCH (20:01)
[2020-02-12] MEDS: XOPENEX 1.25 MG/3 ML NEBULE NEB SCH ×4 (00:20→17:15)
[2020-02-12] MEDS: NS 1000 ML 1,000 ML IV SCH ×2 (03:49→17:41)
[2020-02-12 05:30] LABS: ABG BASE EXCESS 7.3 mmol/L (-2.0-2.0); ABG HCO3 29.1 mmol/L (22-26)
[2020-02-12 05:31] LABS: ABG ALLEN TEST POS; FRACTIONATED INSPIRED OXYGEN 21
[2020-02-12] MEDS: MORPHINE SULFATE INJ 2 MG INJ IVP PRN ×4 (05:43→21:00)
[2020-02-12 05:56] LABS: BASOPHILS % (AUTO) 0.1 % (0.2-1.0); HEMATOCRIT 33.6 % (36.0-47.0); HEMOGLOBIN 11.2 g/dL (12.0-16.0); LYMPHOCYTES # (AUTO) 0.7 X10^3/uL (1.3-2.9); LYMPHOCYTES % (AUTO) 10.3 % (21.0-51.0); MEAN CORPUSCULAR HGB CONC 33.4 g/dL (33.0-35.0); MEAN CORPUSCULAR VOLUME 86.7 fL (80.0-100.0); MEAN PLATELET VOLUME 7.8 fL (7.4-11.0); MONOCYTES # (AUTO) 0.2 x10^3/uL (0.3-0.8); MONOCYTES % (AUTO) 2.9 % (0.0-13.0); NEUTROPHILS # (AUTO) 5.7 x10^3/uL (2.2-4.8); NEUTROPHILS % (AUTO) 86.7 % (42.0-75.0); PLATELET COUNT 241 X10^3/uL (150.0-450.0); RED BLOOD COUNT 3.88 X10^6/uL (3.5-5.4); RED CELL DISTRIBUTION WIDTH 19.3 % (11.6-16.5); WHITE BLOOD COUNT 6.5 X10^3/uL (3.6-10.0)
[2020-02-12 06:12] LABS: ALANINE AMINOTRANSFERASE 47 Units/L (12-78); ALBUMIN 2.4 g/dL (3.4-5.0); ALKALINE PHOSPHATASE 108 Units/L (46-116); ASPARTATE AMINO TRANSFERASE 14 Units/L (15-37); BLOOD UREA NITROGEN 12 mg/dL (7-18); CALCIUM 8.7 mg/dL (8.5-10.1); CARBON DIOXIDE 28.5 mmol/L (21-32); CHLORIDE 101 mmol/L (98-107); COR NA(FOR HYPERGLY) 138 mmol/L (136-145); CREATININE 0.44 mg/dL (0.55-1.02); SODIUM 137 mmol/L (136-145); TOTAL PROTEIN 7.1 g/dL (6.4-8.2); eGFR NON BLACK RACES > 60 (>60)
[2020-02-12 06:28] LABS: ANISOCYTOSIS SLIGHT; PLATELET MORPHOLOGY COMMENT NORMAL (NORMAL)
[2020-02-12] MEDS: SOLU-Medrol 125 MG VIAL IVP SCH (06:39)
[2020-02-12] MEDS: ZOSYN VIAL 3.375 GRAMS 3.375 G in NS 100 ML IV + SPIKE MINIBAG* 100 ML IV SCH ×3 (06:40→21:10)
[2020-02-12] MEDS ORDERED: ZESTRIL TAB 20 MG ONE (09:31)
[2020-02-12] MEDS: LOPRESSOR TAB 25 MG PO SCH ×2 (09:42→21:10)
[2020-02-12] MEDS: NORVASC TAB 10 MG PO SCH (09:42)
[2020-02-12] MEDS: ZESTRIL TAB 20 MG PO SCH (09:42)
[2020-02-12] MEDS: VANCOMYCIN HCL 1 G in D5W 250 ML IV 250 ML IV SCH ×2 (09:43→20:28)
[2020-02-12] MEDS: LOVENOX INJ 30 MG SYR SC SCH ×2 (09:43→21:11)
[2020-02-12] MEDS: DIFLUCAN 200 MG IV PREMIX* 200 MG/100 ML BAG IV SCH (09:44)
[2020-02-12] MEDS: PROTONIX INJ 40 MG VIAL IVP SCH (09:44)
[2020-02-12] MEDS: LACRI-LUBE S.O.P. AFFEYE SCH (09:44)
[2020-02-12] MEDS: CHECK PATCH XX SCH ×2 (09:44→21:09)
[2020-02-12] MEDS: POTASSIUM CHL 40 MEQ/NS 0.45% 500 ML IV PRN (09:50)
[2020-02-12] MEDS: VITAMIN C PO SCH (09:50)
--- NOTE | 2020-02-12 11:05 | PCM.PROG ---
Progress Note Progress Note for Day of Date of Exam: 02/12/20 Subjective Subjective: Pt is a 44 yo f pmhx Asthma, HTN admitted for pneumonia, COVID-19 negative. Pt has improved in her sx and was successfully extubated (02/10). Labs/Imaging: Wbc 6.5, Hgb 11.2, Plt 241, Na 137, K 3.2(replete), Cr 0.44, BloodCx:NGTD, Swab results:+Cassidy, EBV, MRSA, Strep Abx: Zosyn+vancomycin. Continue IV Solumedrol, RT bronchodilators, supplemental oxygen. Will remove NGT, start CLD, advance as tolerated. Continue to monitor and follow up labs in the morning. Past Medical Family Social History Past Med/Fam/Surg Hx: No changes since H&P Allergies: Allergies No Known Drug Allergies Allergy (Verified 10/31/19 08:38) Review of Systems ROS: No change since H&P Vital Signs and I&O's Vital Signs: Temperature 98.7 F Pulse Rate [Right Brachial] 98 Pulse Rate 88 Respiratory Rate 21 Blood Pressure [Right Arm] 126/66 Blood Pressure [Left Arm] 137/85 Blood Pressure [Right Arm] 156/92 Blood Pressure 155/90 O2 Sat by Pulse Oximetry 94 Intake and Output: Intake & Output 02/09/20 02/10/20 02/11/20 02/12/20 23:59 23:59 23:59 23:59 Intake Total 2307 / 2307 1348 / 1348 2853 / 2853 317 / 317 Output Total 1251 / 1251 1300 / 1300 1575 / 1575 425 / 425 Balance 1056 / 1056 48 / 48 1278 / 1278 -108 / -108 Physical Exam Oriented: Normal Eyes: Normal Ear: Normal Nose: Normal Respiratory: Diminished Cardiovascular: Normal : Normal Auscultation: Bowel Sounds: Normal Tenderness: Normal Skin: Normal Musculoskeletal: Normal Mood Description: Calm Speech Pattern: Clear and Appropriate Laboratory and Diagnostics Result Diagrams: 02/12/20 05:24 02/12/20 05:24 Labs: 02/08/20 20:45 Blood Blood Culture - Preliminary 02/08/20 20:30 Blood Blood Culture - Preliminary Laboratory WBC 6.5 X10^3/uL (3.6-10.0) 02/12/20 05:24 RBC 3.88 X10^6/uL (3.5-5.4) 02/12/20 05:24 Hgb 11.2 g/dL (12.0-16.0) L 02/12/20 05:24 Hct 33.6 % (36.0-47.0) L 02/12/20 05:24 MCV 86.7 fL (80.0-100.0) 02/12/20 05:24 MCH 29.0 pg (27.0-34.0) 02/12/20 05:24 MCHC 33.4 g/dL (33.0-35.0) 02/12/20 05:24 RDW 19.3 % (11.6-16.5) H 02/12/20 05:24 Plt Count 241 X10^3/uL (150.0-450.0) 02/12/20 05:24 Plt Count Comment Adequate (ADEQUATE) 02/12/20 05:24 MPV 7.8 fL (7.4-11.0) 02/12/20 05:24 Neut % (Auto) 86.7 % (42.0-75.0) H 02/12/20 05:24 Lymph % (Auto) 10.3 % (21.0-51.0) L 02/12/20 05:24 [place] % (Auto) 2.9 % (0.0-13.0) 02/12/20 05:24 Eos % (Auto) 0.0 % (0.9-2.9) L 02/12/20 05:24 Baso % (Auto) 0.1 % (0.2-1.0) L 02/12/20 05:24 Neut # (Auto) 5.7 x10^3/uL (2.2-4.8) H 02/12/20 05:24 Lymph # (Auto) 0.7 X10^3/uL (1.3-2.9) L 02/12/20 05:24 [place] # (Auto) 0.2 x10^3/uL (0.3-0.8) L 02/12/20 05:24 Eos # (Auto) 0.0 x10^3/uL (0.0-0.2) 02/12/20 05:24 Baso # (Auto) 0.0 X10^3/uL (0.0-0.1) 02/12/20 05:24 Absolute Nucleated RBC 0.0 /100WBC 02/12/20 05:24 Total Counted 100 02/09/20 05:36 Neutrophils % (Manual) 83 % (39-76) H 02/09/20 05:36 Band Neutrophils % 7 % (0-10) 02/09/20 05:36 Lymphocytes % (Manual) 9 % (13-43) L 02/09/20 05:36 Monocytes % (Manual) 1 % (4-9) L 02/09/20 05:36 Eosinophils % (Manual) 1 % (0-6) 02/08/20 19:00 Plt Morphology Comment Normal (NORMAL) 02/12/20 05:24 RBC Morphology Abnormal (NORMAL) A 02/12/20 05:24 Anisocytosis Slight A 02/12/20 05:24 PT 14.1 SECONDS (11.8-14.3) 02/09/20 05:36 INR Target Range - 02/09/20 05:36 INR 1.12 (0.8-1.3) 02/09/20 05:36 APTT 33.8 SECONDS (22.9-36.5) 02/09/20 05:36 PTT Comment - 02/09/20 05:36 D-Dimer 721 ng/mL (0-400) H* 02/08/20 19:00 Sample Site Lr 02/12/20 05:15 ABG pH 7.580 (7.35-7.45) H* 02/12/20 05:15 ABG pCO2 31.0 mmHg (35.0-45.0) L 02/12/20 05:15 ABG pO2 66.0 mmHg (80.0-100.0) L 02/12/20 05:15 ABG HCO3 29.1 mmol/L (22-26) H 02/12/20 05:15 ABG O2 Saturation 96.0 % (90-100) 02/12/20 05:15 ABG Base Excess 7.3 mmol/L (-2.0-2.0) H 02/12/20 05:15 Sancho Test Pos 02/12/20 05:15 A-a Gradient 45.0 mmHg 02/12/20 05:15 FiO2 21 02/12/20 05:15 Blood Gas Comments Trudy well sw 02/12/20 05:15 Sodium 137 mmol/L (136-145) 02/12/20 05:24 Corrected Sodium 138 mmol/L (136-145) 02/12/20 05:24 Potassium 3.2 mmol/L (3.5-5.1) L 02/12/20 05:24 Chloride 101 mmol/L (98-107) 02/12/20 05:24 Carbon Dioxide 28.5 mmol/L (21-32) 02/12/20 05:24 BUN 12 mg/dL (7-18) 02/12/20 05:24 Creatinine 0.44 mg/dL (0.55-1.02) L 02/12/20 05:24 Est GFR (MDRD) Af Amer > 60 (>60) 02/12/20 05:24 Est GFR (MDRD) Non-Af > 60 (>60) 02/12/20 05:24 Glucose 138 mg/dL (65-99) H 02/12/20 05:24 Lactic Acid 1.0 mmol/L (0.4-2.0) 02/08/20 20:30 Calcium 8.7 mg/dL (8.5-10.1) 02/12/20 05:24 Corrected Calcium 10.0 mg/dL (8.5-10.1) 02/12/20 05:24 Magnesium 2.3 mg/dL (1.7-2.9) 02/11/20 05:19 Total Bilirubin 0.20 mg/dL (0.2-1.0) 02/12/20 05:24 AST 14 Units/L (15-37) L 02/12/20 05:24 ALT 47 Units/L (12-78) 02/12/20 05:24 Alkaline Phosphatase 108 Units/L (46-116) 02/12/20 05:24 Creatine Kinase 63 Units/L (26-192) 02/08/20 19:00 CK-MB (CK-2) < 1.0 ng/mL (0-4.0) 02/08/20 19:00 CK/CKMB % Calc 1.6 % (<4) 02/08/20 19:00 Troponin I < 0.02 ng/mL (0-1.5) 02/08/20 19:00 C-Reactive Protein 205.60 mg/L (0-3.0) H 02/10/20 05:28 B-Natriuretic Peptide 87.1 pg/mL (0-79) H 02/08/20 19:00 Total Protein 7.1 g/dL (6.4-8.2) 02/12/20 05:24 Albumin 2.4 g/dL (3.4-5.0) L 02/12/20 05:24 Globulin 4.7 g/dL (2.5-4.5) H 02/12/20 05:24 Albumin/Globulin Ratio 0.5 Ratio (1.1-2.1) L 02/12/20 05:24 Specimen Type Catherized urine 02/09/20 06:45 Urine Color Yellow (YELLOW) 02/09/20 06:45 Urine Appearance Clear (CLEAR) 02/09/20 06:45 Urine pH 6.0 (5.0 - 8.0) 02/09/20 06:45 Ur Specific [place] 1.010 (1.000-1.030) 02/09/20 06:45 Urine Protein 3+ (NEGATIVE) 02/09/20 06:45 Urine Glucose (UA) Negative (NEGATIVE) 02/09/20 06:45 Urine Ketones 2+ (NEGATIVE) 02/09/20 06:45 Urine Occult Blood 1+ (NEGATIVE) 02/09/20 06:45 Urine Nitrite Negative (NEGATIVE) 02/09/20 06:45 Urine Bilirubin Negative (NEGATIVE) 02/09/20 06:45 Urine Urobilinogen Normal (NORMAL) 02/09/20 06:45 Ur Leukocyte Esterase Negative (NEGATIVE) 02/09/20 06:45 Urine RBC 0-2 /HPF (0-3) 02/09/20 06:45 Urine WBC None seen /HPF (0-5) 02/09/20 06:45 Ur Squamous Epith Cells Negative /HPF (NEGATIVE) 02/09/20 06:45 Urine Bacteria Negative /HPF (NEGATIVE) 02/09/20 06:45 Urine Mucus Few /HPF (NEGATIVE) 02/09/20 06:45 Ur Culture Indicated? No/not indicated 02/09/20 06:45 RSV Nasal Swab Negative (NEGATIVE) 02/08/20 20:59 Influenza Type A (PCR) Negative (NEGATIVE) 02/08/20 20:59 Influenza Type B (PCR) Negative (NEGATIVE) 02/08/20 20:59 S. pyogenes (TEM-PCR) Not detected (NOT DETECT) 02/08/20 20:59 Miscellaneous Test Covid-19 02/08/20 20:59 Plan (1) ARDS (adult respiratory distress syndrome): Status: Acute Plan: Extubated on supplemental O2 (02/11/20) Intubated and placed on mechanical ventilator (02/09/20) Continue to monitor respiratory status. (2) Acute respiratory failure: Status: Acute Plan: (3) Multifocal pneumonia: Status: Inactive Plan: Continue Vanc+Zosyn (4) Hypertension: Status: Chronic Qualifiers: Hypertension type: essential hypertension Qualified Code(s): I10 - Esse ntial (primary) hypertension (5) Asthma: Status: Chronic (6) Hypoxia: Status: Acute
[2020-02-12] MEDS: ZOFRAN INJ 4 MG VIAL IVP PRN (16:42)
[2020-02-12] MEDS: TRANSDERM-SCOP TD SCH (18:30)
[2020-02-12 20:01] LABS: CREATININE 0.55 mg/dL (0.55-1.02); VANCOMYCIN,TROUGH 5.6 ug/mL (15-20)
[2020-02-12] MEDS ORDERED: PHARMACY COMMENT IV NR (20:30)
[2020-02-12] MEDS ORDERED: PHARMACY CONSULT - VANCOMYCIN XX SCH (21:00)
[2020-02-12] MEDS: VANCOMYCIN HCL 250 MG, VANCOMYCIN HCL 1 G in D5W 250 ML IV 250 ML IV SCH (22:00)
[2020-02-12] MEDS ORDERED: D5W 250 ML IV 250 ML IV ONE (22:02)
[2020-02-12] MEDS ORDERED: VANCOMYCIN HCL ONE ×2 (22:02)
[2020-02-12] MEDS ORDERED: NS 500 ML IV 500 ML IV ONE (22:18)
[2020-02-12] MEDS: K-RIDER 10 MEQ/NS 100 ML 10 MEQ/100 ML BAG IV PRN ×2 (22:35→23:37)
[2020-02-13] MEDS: K-RIDER 10 MEQ/NS 100 ML 10 MEQ/100 ML BAG IV PRN ×2 (00:35→01:40)
[2020-02-13] MEDS: ZOFRAN INJ 4 MG VIAL IVP PRN ×3 (01:43→20:45)
[2020-02-13] MEDS: MORPHINE SULFATE INJ 2 MG INJ IVP PRN ×5 (01:45→21:37)
[2020-02-13] MEDS: XOPENEX 1.25 MG/3 ML NEBULE NEB SCH ×4 (01:45→17:15)
[2020-02-13] MEDS: NS 1000 ML 1,000 ML IV SCH ×2 (03:37→17:45)
[2020-02-13] MEDS: ZOSYN VIAL 3.375 GRAMS 3.375 G in NS 100 ML IV + SPIKE MINIBAG* 100 ML IV SCH ×3 (05:27→21:00)
[2020-02-13] MEDS ORDERED: VANCOMYCIN HCL ONE ×6 (05:32→21:22)
[2020-02-13] MEDS ORDERED: D5W 250 ML IV 250 ML IV ONE ×4 (05:33→21:22)
[2020-02-13 05:51] LABS: BASOPHILS % (AUTO) 0.2 % (0.2-1.0); HEMATOCRIT 33.9 % (36.0-47.0); HEMOGLOBIN 11.4 g/dL (12.0-16.0); LYMPHOCYTES # (AUTO) 1.5 X10^3/uL (1.3-2.9); LYMPHOCYTES % (AUTO) 22.2 % (21.0-51.0); MEAN CORPUSCULAR HEMOGLOBIN 29.2 pg (27.0-34.0); MEAN CORPUSCULAR HGB CONC 33.7 g/dL (33.0-35.0); MEAN CORPUSCULAR VOLUME 86.5 fL (80.0-100.0); MEAN PLATELET VOLUME 8.1 fL (7.4-11.0); MONOCYTES # (AUTO) 0.7 x10^3/uL (0.3-0.8); MONOCYTES % (AUTO) 10.9 % (0.0-13.0); NEUTROPHILS # (AUTO) 4.4 x10^3/uL (2.2-4.8); NEUTROPHILS % (AUTO) 66.7 % (42.0-75.0); PLATELET COUNT 234 X10^3/uL (150.0-450.0); RED BLOOD COUNT 3.91 X10^6/uL (3.5-5.4); RED CELL DISTRIBUTION WIDTH 19.7 % (11.6-16.5); WHITE BLOOD COUNT 6.7 X10^3/uL (3.6-10.0)
[2020-02-13] MEDS: VANCOMYCIN HCL 250 MG, VANCOMYCIN HCL 1 G in D5W 250 ML IV 250 ML IV SCH ×3 (05:55→21:32)
[2020-02-13 06:05] LABS: ALANINE AMINOTRANSFERASE 45 Units/L (12-78); ALBUMIN 2.5 g/dL (3.4-5.0); ALKALINE PHOSPHATASE 93 Units/L (46-116); ASPARTATE AMINO TRANSFERASE 20 Units/L (15-37); BLOOD UREA NITROGEN 7 mg/dL (7-18); CALCIUM 8.4 mg/dL (8.5-10.1); CARBON DIOXIDE 28.3 mmol/L (21-32); CHLORIDE 99 mmol/L (98-107); COR CA(FOR HYPOALB) 9.6 mg/dL (8.5-10.1); CREATININE 0.51 mg/dL (0.55-1.02); SODIUM 134 mmol/L (136-145); TOTAL PROTEIN 6.7 g/dL (6.4-8.2); eGFR NON BLACK RACES > 60 (>60)
[2020-02-13 06:13] LABS: PLATELET MORPHOLOGY COMMENT NORMAL (NORMAL)
[2020-02-13] MEDS: K-DUR TAB 20 MEQ PO PRN ×2 (06:30→18:36)
--- NOTE | 2020-02-13 07:16 | RAD ---
HISTORYFollow-up pneumoniaSTUDYCHEST, 1 [id number] tube and nasogastric tubes are no longer present. There is a right IJ line with its tip near the cavoatrial junction. The heart is within normal limits in si ze. The jakob are normal. The right lung and left upper lung jhaveri are clear. There is significant im provement in the aeration of the left lower lobe when compared to the prior examination. The left hem idiaphragm is now visible. There is some subsegmental atelectasis in the left lung base. No pleural e ffusions are identified. The bony thorax is unremarkable.IMPRESSIONSignificantly improved aeration in the retrocardiac area of the left lower lobe when compared with the prior examination.Subsegmental a telectasis left lung baseRemainder of the lung jhaveri are clear.Electronically signed by: MILENA COLBERT (Feb 13, 2020 07:14:54)
[2020-02-13] MEDS ORDERED: ZESTRIL TAB 20 MG ONE (07:58)
[2020-02-13] MEDS: MAGNESIUM SULFATE 1 GRAM/100 mL PREMIX 1 GM/100 ML BAG IV PRN ×2 (08:06→10:45)
[2020-02-13] MEDS: LOVENOX INJ 30 MG SYR SC SCH ×2 (08:48→21:00)
[2020-02-13] MEDS: LOPRESSOR TAB 25 MG PO SCH ×2 (08:49→21:32)
[2020-02-13] MEDS: NORVASC TAB 10 MG PO SCH (08:49)
[2020-02-13] MEDS: CHECK PATCH XX SCH ×2 (08:50→20:59)
[2020-02-13] MEDS: VITAMIN C PO SCH (08:51)
[2020-02-13] MEDS: ZESTRIL TAB 20 MG PO SCH (08:52)
[2020-02-13] MEDS: PROTONIX INJ 40 MG VIAL IVP SCH (08:52)
[2020-02-13] MEDS: DIFLUCAN 200 MG IV PREMIX* 200 MG/100 ML BAG IV SCH (08:54)
[2020-02-13 13:20] LABS: BLOOD UREA NITROGEN 8 mg/dL (7-18); CARBON DIOXIDE 29.9 mmol/L (21-32); CHLORIDE 99 mmol/L (98-107); COR NA(FOR HYPERGLY) 134 mmol/L (136-145); CREATININE 0.64 mg/dL (0.55-1.02); SODIUM 133 mmol/L (136-145); eGFR NON BLACK RACES > 60 (>60)
[2020-02-13] MEDS: NICOTINE PATCH TD SCH (19:16)
[2020-02-13] MEDS ORDERED: PHARMACY COMMENT IV NR (20:30)
[2020-02-13 21:08] LABS: CREATININE 0.78 mg/dL (0.55-1.02); VANCOMYCIN,TROUGH 12.9 ug/mL (15-20)
--- NOTE | 2020-02-13 22:07 | PCM.PROG ---
Progress Note Progress Note for Day of Date of Exam: 02/13/20 Subjective Subjective: Pt is a 44 yo f pmhx Asthma, HTN, admitted for pneumonia, COVID-19 negative. Pt has significantly improved since being successfully extubated (02/10). Labs/Imaging:CXR: Significantly improved aeration in the retrocardiac area of the left lower lobe when compared with the prior examination. Gill bsegmental atelectasis left lung base. Remainder of the lung jhaveri are clear. Wbc 6.7, Hgb 11.4, Plt 234, Na 134, K 3.2, Cr 0.51, BloodCx:NGTD, Swab results:+Cassidy, EBV, MRSA, Strep Abx:Zosyn+vancomycin. Continue IV Solumedrol, RT bronchodilators, supplemental oxygen. Pt has advanced her diet. K replete per protocol and repeat wnl. Assessed pt in the afternoon, she was able to ambulate without oxygen requirement with pulse ox >90%. However, she remained physically weak, unable to sit longer than 20 minutes in a recliner before she was fatigued and short of breath. I anticipate her discharge when her strength has improved. Rx sent has been sent to pharmacy when discharged for doxycycline and prednisone course, along with refills on some home medications and inhalers. Continue to monitor and follow labs in the morning. Past Medical Family Social History Past Med/Fam/Surg Hx: No changes since H&P Allergies: Allergies No Known Drug Allergies Allergy (Verified 10/31/19 08:38) Review of Systems ROS: No change since H&P Vital Signs and I&O's Vital Signs: Temperature 99.4 F Pulse Rate [Right Brachial] 98 Pulse Rate 77 Respiratory Rate 18 Blood Pressure [Right Arm] 126/66 Blood Pressure [Left Arm] 137/85 Blood Pressure [Right Arm] 156/92 Blood Pressure 113/73 O2 Sat by Pulse Oximetry 94 Intake and Output: Intake & Output 02/10/20 02/11/20 02/12/20 02/13/20 23:59 23:59 23:59 23:59 Intake Total 1348 / 1348 2853 / 2853 3419 / 3419 2586 / 2586 Output Total 1300 / 1300 1575 / 1575 2500 / 2500 3200 / 3200 Balance 48 / 48 1278 / 1278 919 / 919 -614 / -614 Physical Exam Oriented: Normal Eyes: Normal Ear: Normal Nose: Normal Respiratory: Diminished Cardiovascular: Normal : Normal Auscultation: Bowel Sounds: Normal Tenderness: Normal Skin: Normal Musculoskeletal: Normal Mood Description: Calm Speech Pattern: Clear and Appropriate Laboratory and Diagnostics Result Diagrams: 02/13/20 05:10 02/13/20 20:35 Labs: 02/08/20 20:45 Blood Blood Culture - Preliminary 02/08/20 20:30 Blood Blood Culture - Preliminary Laboratory WBC 6.7 X10^3/uL (3.6-10.0) 02/13/20 05:10 RBC 3.91 X10^6/uL (3.5-5.4) 02/13/20 05:10 Hgb 11.4 g/dL (12.0-16.0) L 02/13/20 05:10 Hct 33.9 % (36.0-47.0) L 02/13/20 05:10 MCV 86.5 fL (80.0-100.0) 02/13/20 05:10 MCH 29.2 pg (27.0-34.0) 02/13/20 05:10 MCHC 33.7 g/dL (33.0-35.0) 02/13/20 05:10 RDW 19.7 % (11.6-16.5) H 02/13/20 05:10 Plt Count 234 X10^3/uL (150.0-450.0) 02/13/20 05:10 Plt Count Comment Adequate (ADEQUATE) 02/13/20 05:10 MPV 8.1 fL (7.4-11.0) 02/13/20 05:10 Neut % (Auto) 66.7 % (42.0-75.0) 02/13/20 05:10 Lymph % (Auto) 22.2 % (21.0-51.0) 02/13/20 05:10 [place] % (Auto) 10.9 % (0.0-13.0) 02/13/20 05:10 Eos % (Auto) 0.0 % (0.9-2.9) L 02/13/20 05:10 Baso % (Auto) 0.2 % (0.2-1.0) 02/13/20 05:10 Neut # (Auto) 4.4 x10^3/uL (2.2-4.8) 02/13/20 05:10 Lymph # (Auto) 1.5 X10^3/uL (1.3-2.9) 02/13/20 05:10 [place] # (Auto) 0.7 x10^3/uL (0.3-0.8) 02/13/20 05:10 Eos # (Auto) 0.0 x10^3/uL (0.0-0.2) 02/13/20 05:10 Baso # (Auto) 0.0 X10^3/uL (0.0-0.1) 02/13/20 05:10 Absolute Nucleated RBC 0.0 /100WBC 02/13/20 05:10 Total Counted 100 02/09/20 05:36 Neutrophils % (Manual) 83 % (39-76) H 02/09/20 05:36 Band Neutrophils % 7 % (0-10) 02/09/20 05:36 Lymphocytes % (Manual) 9 % (13-43) L 02/09/20 05:36 Monocytes % (Manual) 1 % (4-9) L 02/09/20 05:36 Eosinophils % (Manual) 1 % (0-6) 02/08/20 19:00 Plt Morphology Comment Normal (NORMAL) 02/13/20 05:10 RBC Morphology Normal (NORMAL) 02/13/20 05:10 Anisocytosis Slight A 02/12/20 05:24 PT 14.1 SECONDS (11.8-14.3) 02/09/20 05:36 INR Target Range - 02/09/20 05:36 INR 1.12 (0.8-1.3) 02/09/20 05:36 APTT 33.8 SECONDS (22.9-36.5) 02/09/20 05:36 PTT Comment - 02/09/20 05:36 D-Dimer 721 ng/mL (0-400) H* 02/08/20 19:00 Sample Site Lr 02/12/20 05:15 ABG pH 7.580 (7.35-7.45) H* 02/12/20 05:15 ABG pCO2 31.0 mmHg (35.0-45.0) L 02/12/20 05:15 ABG pO2 66.0 mmHg (80.0-100.0) L 02/12/20 05:15 ABG HCO3 29.1 mmol/L (22-26) H 02/12/20 05:15 ABG O2 Saturation 96.0 % (90-100) 02/12/20 05:15 ABG Base Excess 7.3 mmol/L (-2.0-2.0) H 02/12/20 05:15 Sancho Test Pos 02/12/20 05:15 A-a Gradient 45.0 mmHg 02/12/20 05:15 FiO2 21 02/12/20 05:15 Blood Gas Comments Trudy well sw 02/12/20 05:15 Sodium 133 mmol/L (136-145) L 02/13/20 13:06 Corrected Sodium 134 mmol/L (136-145) L 02/13/20 13:06 Potassium 3.6 mmol/L (3.5-5.1) 02/13/20 13:06 Chloride 99 mmol/L (98-107) 02/13/20 13:06 Carbon Dioxide 29.9 mmol/L (21-32) 02/13/20 13:06 BUN 8 mg/dL (7-18) 02/13/20 13:06 Creatinine 0.78 mg/dL (0.55-1.02) 02/13/20 20:35 Est GFR (MDRD) Af Amer > 60 (>60) 02/13/20 13:06 Est GFR (MDRD) Non-Af > 60 (>60) 02/13/20 13:06 Glucose 129 mg/dL (65-99) H 02/13/20 13:06 Lactic Acid 1.0 mmol/L (0.4-2.0) 02/08/20 20:30 Calcium 8.0 mg/dL (8.5-10.1) L 02/13/20 13:06 Corrected Calcium 9.6 mg/dL (8.5-10.1) 02/13/20 05:10 Magnesium 1.9 mg/dL (1.7-2.9) 02/13/20 05:10 Total Bilirubin 0.20 mg/dL (0.2-1.0) 02/13/20 05:10 AST 20 Units/L (15-37) 02/13/20 05:10 ALT 45 Units/L (12-78) 02/13/20 05:10 Alkaline Phosphatase 93 Units/L (46-116) 02/13/20 05:10 Creatine Kinase 63 Units/L (26-192) 02/08/20 19:00 CK-MB (CK-2) < 1.0 ng/mL (0-4.0) 02/08/20 19:00 CK/CKMB % Calc 1.6 % (<4) 02/08/20 19:00 Troponin I < 0.02 ng/mL (0-1.5) 02/08/20 19:00 C-Reactive Protein 205.60 mg/L (0-3.0) H 02/10/20 05:28 B-Natriuretic Peptide 87.1 pg/mL (0-79) H 02/08/20 19:00 Total Protein 6.7 g/dL (6.4-8.2) 02/13/20 05:10 Albumin 2.5 g/dL (3.4-5.0) L 02/13/20 05:10 Globulin 4.2 g/dL (2.5-4.5) 02/13/20 05:10 Albumin/Globulin Ratio 0.6 Ratio (1.1-2.1) L 02/13/20 05:10 Specimen Type Catherized urine 02/09/20 06:45 Urine Color Yellow (YELLOW) 02/09/20 06:45 Urine Appearance Clear (CLEAR) 02/09/20 06:45 Urine pH 6.0 (5.0 - 8.0) 02/09/20 06:45 Ur Specific [place] 1.010 (1.000-1.030) 02/09/20 06:45 Urine Protein 3+ (NEGATIVE) 02/09/20 06:45 Urine Glucose (UA) Negative (NEGATIVE) 02/09/20 06:45 Urine Ketones 2+ (NEGATIVE) 02/09/20 06:45 Urine Occult Blood 1+ (NEGATIVE) 02/09/20 06:45 Urine Nitrite Negative (NEGATIVE) 02/09/20 06:45 Urine Bilirubin Negative (NEGATIVE) 02/09/20 06:45 Urine Urobilinogen Normal (NORMAL) 02/09/20 06:45 Ur Leukocyte Esterase Negative (NEGATIVE) 02/09/20 06:45 Urine RBC 0-2 /HPF (0-3) 02/09/20 06:45 Urine WBC None seen /HPF (0-5) 02/09/20 06:45 Ur Squamous Epith Cells Negative /HPF (NEGATIVE) 02/09/20 06:45 Urine Bacteria Negative /HPF (NEGATIVE) 02/09/20 06:45 Urine Mucus Few /HPF (NEGATIVE) 02/09/20 06:45 Ur Culture Indicated? No/not indicated 02/09/20 06:45 RSV Nasal Swab Negative (NEGATIVE) 02/08/20 20:59 Vancomycin Trough 12.9 ug/mL (15-20) L 02/13/20 20:35 Influenza Type A (PCR) Negative (NEGATIVE) 02/08/20 20:59 Influenza Type B (PCR) Negative (NEGATIVE) 02/08/20 20:59 S. pyogenes (TEM-PCR) Not detected (NOT DETECT) 02/08/20 20:59 Miscellaneous Test Covid-19 02/08/20 20:59 Plan (1) ARDS (adult respiratory distress syndrome): Status: Acute Plan: Extubated on supplemental O2 (02/11/20) Intubated and placed on mechanical ventilator (02/09/20) Continue to monitor respiratory status. (2) Acute respiratory failure: Status: Acute Plan: (3) Multifocal pneumonia: Status: Inactive Plan: Continue Vanc+Zosyn (4) Hypertension: Status: Chronic Qualifiers: Hypertension type: essential hypertension Qualified Code(s): I10 - Essential (primary) hypertension (5) Asthma: Status: Chronic (6) Hypoxia: Status: Acute
[2020-02-13] MEDS ORDERED: MAALOX or MYLANTA PO PRN (22:48)
[2020-02-13] MEDS ORDERED: PHENERGAN INJ 25 MG IM PRN (23:11)
[2020-02-13] MEDS ORDERED: PHENERGAN INJ 25 MG IM ONE (23:15)
[2020-02-14] MEDS: XOPENEX 1.25 MG/3 ML NEBULE NEB SCH ×3 (01:00→11:57)
[2020-02-14] MEDS: MORPHINE SULFATE INJ 2 MG INJ IVP PRN ×3 (01:40→12:46)
[2020-02-14 04:56] LABS: BASOPHILS % (AUTO) 0.1 % (0.2-1.0); EOSINOPHILS # (AUTO) 0.2 x10^3/uL (0.0-0.2); EOSINOPHILS % (AUTO) 3.5 % (0.9-2.9); HEMATOCRIT 33.8 % (36.0-47.0); HEMOGLOBIN 11.1 g/dL (12.0-16.0); LYMPHOCYTES # (AUTO) 1.4 X10^3/uL (1.3-2.9); LYMPHOCYTES % (AUTO) 24.5 % (21.0-51.0); MEAN CORPUSCULAR HEMOGLOBIN 28.8 pg (27.0-34.0); MEAN CORPUSCULAR HGB CONC 32.9 g/dL (33.0-35.0); MEAN CORPUSCULAR VOLUME 87.4 fL (80.0-100.0); MEAN PLATELET VOLUME 8.4 fL (7.4-11.0); MONOCYTES # (AUTO) 0.5 x10^3/uL (0.3-0.8); MONOCYTES % (AUTO) 8.1 % (0.0-13.0); NEUTROPHILS # (AUTO) 3.7 x10^3/uL (2.2-4.8); NEUTROPHILS % (AUTO) 63.8 % (42.0-75.0); PLATELET COUNT 240 X10^3/uL (150.0-450.0); RED BLOOD COUNT 3.87 X10^6/uL (3.5-5.4); RED CELL DISTRIBUTION WIDTH 19.2 % (11.6-16.5); WHITE BLOOD COUNT 5.8 X10^3/uL (3.6-10.0)
[2020-02-14 05:07] LABS: ALANINE AMINOTRANSFERASE 40 Units/L (12-78); ALBUMIN 2.5 g/dL (3.4-5.0); ALKALINE PHOSPHATASE 85 Units/L (46-116); ASPARTATE AMINO TRANSFERASE 13 Units/L (15-37); BLOOD UREA NITROGEN 6 mg/dL (7-18); CALCIUM 8.3 mg/dL (8.5-10.1); CARBON DIOXIDE 28.1 mmol/L (21-32); CHLORIDE 102 mmol/L (98-107); COR CA(FOR HYPOALB) 9.5 mg/dL (8.5-10.1); CREATININE 0.56 mg/dL (0.55-1.02); SODIUM 137 mmol/L (136-145); TOTAL PROTEIN 6.5 g/dL (6.4-8.2); eGFR NON BLACK RACES > 60 (>60)
[2020-02-14 05:18] LABS: ANISOCYTOSIS SLIGHT; PLATELET MORPHOLOGY COMMENT NORMAL (NORMAL)
[2020-02-14] MEDS ORDERED: D5W 250 ML IV 250 ML IV ONE ×2 (05:25→12:27)
[2020-02-14] MEDS ORDERED: VANCOMYCIN HCL ONE ×4 (05:26→12:28)
[2020-02-14] MEDS: VANCOMYCIN HCL 250 MG, VANCOMYCIN HCL 1 G in D5W 250 ML IV 250 ML IV SCH ×2 (05:49→12:45)
[2020-02-14] MEDS: NS 1000 ML 1,000 ML IV SCH (05:49)
[2020-02-14] MEDS: ZOSYN VIAL 3.375 GRAMS 3.375 G in NS 100 ML IV + SPIKE MINIBAG* 100 ML IV SCH ×2 (05:49→14:34)
[2020-02-14] MEDS ORDERED: ZESTRIL TAB 20 MG ONE (08:15)
[2020-02-14] MEDS: DIFLUCAN 200 MG IV PREMIX* 200 MG/100 ML BAG IV SCH (08:20)
[2020-02-14] MEDS: PROTONIX INJ 40 MG VIAL IVP SCH (08:20)
[2020-02-14] MEDS: LOPRESSOR TAB 25 MG PO SCH (08:21)
[2020-02-14] MEDS: ZESTRIL TAB 20 MG PO SCH (08:21)
[2020-02-14] MEDS: CHECK PATCH XX SCH (08:22)
[2020-02-14] MEDS: VITAMIN C PO SCH (08:22)
[2020-02-14] MEDS: NORVASC TAB 10 MG PO SCH (08:22)
[2020-02-14] MEDS: LOVENOX INJ 30 MG SYR SC SCH (08:23)
[2020-02-14] MEDS: ZOFRAN INJ 4 MG VIAL IVP PRN (08:24)
[2020-02-14] MEDS: NICOTINE PATCH TD SCH (08:30)
[2020-02-14] MEDS: K-DUR TAB 20 MEQ PO PRN (08:35)
[2020-02-14 16:51] VITALS: BP 112/74
== END 2020-02-14 17:51 | disposition home health service (06) | DRG 177 ==
LOC: ER 18:23 → ICU 22:10
PROVIDERS: ADMIT Internal Medicine; ATTEND Internal Medicine
DX: B37.89 Other sites of candidiasis; I10 Essential (primary) hypertension; J80 Acute respiratory distress syndrome; J45.909 Unspecified asthma, uncomplicated; Z11.59 Encounter for screening for other viral diseases; Z72.0 Tobacco use; B95.3 Streptococcus pneumoniae as the cause of diseases classified elsewhere; R07.82 Intercostal pain; J15.212 Pneumonia due to Methicillin resistant Staphylococcus aureus; R94.31 Abnormal electrocardiogram [ECG] [EKG]; R26.89 Other abnormalities of gait and mobility; B27.00 Gammaherpesviral mononucleosis without complication; R06.02 Shortness of breath

== ENCOUNTER 2020-08-01 11:01 | Inpatient (IN) ==
--- NOTE | 2020-08-01 11:12 | DR.SOBA ---
HPI Time Seen Time Seen by Provider: 08/01/20 11:11 HPI Comment HPI Comment: PATIENT IS 44YR OLD FEMALE IN [place] VIA EMS WITH INCREASING SOB, COUGH, CONGESTION AND FEVER WITH LOW O2 SATURATION TIMES ONE DAY. STARTED GETTING WORSE LAST NIGHT. PARIENTS SAT DROP TO [address] HER ON 4L/M O2 AND SAT WAS IN THE 90S. PATIENT IS ALSO HAVING 10/10 BACK PAIN. PATIENT HAVE HAD THESE SYMPTOMS PREVIOUSLY. SEVERAL WEEKS AGO WAS PLACE ON THE VENTILATOR. HISTORY PACREATITIS AND HTN. MEDICATIONS PATIENT TOOK AT HOME DID NOT HELP. PLEURITIC CHEST PAIN ALSO. Complaints Chief Complaint Doctors Comments: FEVER, COUGH, CONGESTION, SOB AND LOW O2 SATURATION TIMES ONE DAY. HERE VIA EMS. COVID-19 Coronavirus risk:travel/contact w/high risk person: No Has patient experienced Coronavirus symptoms: No Reviewed Nurses Notes Reviewed: Yes Source History Provided: Patient and EMS Mode of Arrival Mode of Arrival: Wheelchair PMH PMH Past Medical History: Hypertension Past Surgical History: Yes Surgical History: Abdominal Surgery and Hysterectomy Family History Family Medical History: Diabetes Mellitus, Coronary Artery Disease and Hypertension Social History Do you use any recreational Drugs:: No ROS Review of Systems Constitutional: See HPI, Chills, Fever, Malaise, Weakness, Fatigue and Loss of Appetite Eyes: No Symptoms Reported and See HPI; negative Blurred Vision and Diplopia ENTM: See HPI, Nose Discharge and Nose Congestion; negative Ear Pain and Throat Pain Respiratoy: Productive Cough, Short of Breath and Wheezing Cardiovascular: See HPI and Chest Pain; negative Edema Gastrointestinal/Abdominal: See HPI and Nausea; negative Abdominal Pain, Diarrhea and Vomiting Genitourinary: No Symptoms Reported and See HPI; negative Discharge, Dysuria, Frequency and Hematuria Neurological: See HPI, Headache and Weakness; negative Dizziness Musculoskeletal: See HPI, Back Pain and Muscle Pain Integumentary: See HPI, Change in Color and Dryness; negative Rash and Juandice Hematologic/Lymphatic: Easy Bleeding and Easy Bruising; negative Blood Clots Endocrine: See HPI and Decreased Appetite; negative Increased Thirst and Increased Urine Psychiatric: No Symptoms Reported and See HPI All Other Systems: Reviewed and Negative PE Vital Signs Vitals: Temperature 98.4 F Pulse Rate [Right Radial] 89 Pulse Rate 86 Respiratory Rate 20 Blood Pressure [Right Arm] 172/104 Blood Pressure [Left Arm] 137/85 Blood Pressure [Right Arm] 156/92 Blood Pressure 165/91 O2 Sat by Pulse Oximetry 95 General Limitations: No Limitations General Appearance: Alert and In No Apparent Distress Head Head Exam: Normal Inspection and Atraumatic Eyes Eye exam: Normal Appearance, PERRL and EOMI; negative Scleral Icterus and Conjunctival Injection ENT ENT Exam: Normal External Ear Exam; negative Normal Oropharynx and TM's Normal Bilaterally Neck Neck Exam: Normal Inspection and Trachea Midline; negative Tenderness and Lymphadenopathy Chest Chest Inspection: Normal Inspection and Symmetric Chest Wall Rise; negative Tenderness Respiratory Respiratory Exam: Normal Lung Sounds Bilat and Respiratory Distress; negative Accessory Muscle Use and Chest Wall Tenderness Respiratory Exam: Bilateral: Wheezing and Bilateral: Rhonchi and Lower: Wheezing and Lower: Rhonchi Cardiovascular Cardiovascular Exam: Regular Rate, Normal Rhythm and Normal Heart Sounds; negative Systolic Murmur and Diastolic Murmur Abdominal Exam Abdominal Exam: Normal Inspection, Normal Bowel Sounds and Soft; negative Tenderness Extremities Extremities Exam: Normal Inspection, Tenderness and Normal Capillary Refill; negative Edema and Calf Tenderness Back Back Exam: Normal Inspection, Tenderness, (R) CVA Tenderness, (L) CVA Tenderness, Paraspinal Tenderness and Vertebral Tenderness Neurologic Neurological Exam: Alert, Oriented X3 and CN II-XII Intact; negative Motor Sensory Deficit Psychiatric Psychiatric Exam: Normal Affect and Anxious Skin Skin Exam: Warm, Dry, Intact and Normal Color MDM Additional Information Obtained Additional Information Obtained From: Old Records Differential Diagnosis Differential Diagnosis: CHF, COPD, Dysrhythmia, Hyponatremia, Mycardial Infarction, Pneumonia, Pneumothorax, Respiratory Insufficiency and URI COURSE Treatment Treatment: SEE ORDERS. TORADOL 30MG IV, MORPHIN 4MG IV, ZOFRAN 4MG IV, ZITHROMAX 500MG IVBP IN ER. Consultation Consultation Comments: DISCUSSED PATIENT WITH DR. JOSÉ. HE WILL ADMIT PATIENT. ROR Labs Reviewed Laboratory Results Reviewed?: Yes Result Diagrams: 08/05/20 04:31 08/05/20 04:31 Laboratory: 08/01/20 11:50 Blood Blood Culture - Final 08/01/20 11:10 Blood Blood Culture - Final WBC 10.4 X10^3/uL (3.6-10.0) H 08/01/20 11:10 RBC 3.91 X10^6/uL (3.5-5.4) 08/01/20 11:10 Hgb 12.0 g/dL (12.0-16.0) 08/01/20 11:10 Hct 36.5 % (36.0-47.0) 08/01/20 11:10 MCV 93.3 fL (80.0-100.0) 08/01/20 11:10 MCH 30.6 pg (27.0-34.0) 08/01/20 11:10 MCHC 32.9 g/dL (33.0-35.0) L 08/01/20 11:10 RDW 12.9 % (11.6-16.5) 08/01/20 11:10 Plt Count 197 X10^3/uL (150.0-450.0) 08/01/20 11:10 MPV 10.0 fL (7.4-11.0) 08/01/20 11:10 Neut % (Auto) 90.0 % (42.0-75.0) H 08/01/20 11:10 Lymph % (Auto) 5.1 % (21.0-51.0) L 08/01/20 11:10 Pitkin % (Auto) 2.4 % (0.0-13.0) 08/01/20 11:10 Eos % (Auto) 2.1 % (0.9-2.9) 08/01/20 11:10 Baso % (Auto) 0.4 % (0.2-1.0) 08/01/20 11:10 Neut # (Auto) 9.4 x10^3/uL (2.2-4.8) H 08/01/20 11:10 Lymph # (Auto) 0.5 X10^3/uL (1.3-2.9) L 08/01/20 11:10 Pitkin # (Auto) 0.3 x10^3/uL (0.3-0.8) 08/01/20 11:10 Eos # (Auto) 0.2 x10^3/uL (0.0-0.2) 08/01/20 11:10 Baso # (Auto) 0.0 X10^3/uL (0.0-0.1) 08/01/20 11:10 Absolute Nucleated RBC 0.0 /100WBC 08/01/20 11:10 Sample Site Rrad 08/01/20 11:42 ABG pH 7.460 (7.35-7.45) H 08/01/20 11:42 ABG pCO2 38.0 mmHg (35.0-45.0) 08/01/20 11:42 ABG pO2 58.0 mmHg (80.0-100.0) L 08/01/20 11:42 ABG HCO3 27.0 mmol/L (22-26) H 08/01/20 11:42 ABG O2 Saturation 91.0 % (90-100) 08/01/20 11:42 ABG Base Excess 3.1 mmol/L (-2.0-2.0) H 08/01/20 11:42 Sancho Test Pos 08/01/20 11:42 A-a Gradient 44.0 mmHg 08/01/20 11:42 FiO2 21.0 08/01/20 11:42 Blood Gas Comments Pt wolfgang well elj 08/01/20 11:42 Sodium 139 mmol/L (136-145) 08/01/20 11:10 Corrected Sodium 139 mmol/L (136-145) 08/01/20 11:10 Potassium 4.0 mmol/L (3.5-5.1) 08/01/20 11:10 Chloride 102 mmol/L (98-107) 08/01/20 11:10 Carbon Dioxide 27.1 mmol/L (21-32) 08/01/20 11:10 BUN 6 mg/dL (7-18) L 08/01/20 11:10 Creatinine 0.57 mg/dL (0.55-1.02) 08/01/20 11:10 Est GFR (MDRD) Af Amer > 60 (>60) 08/01/20 11:10 Est GFR (MDRD) Non-Af > 60 (>60) 08/01/20 11:10 Glucose 117 mg/dL (65-99) H 08/01/20 11:10 Lactic Acid 1.2 mmol/L (0.4-2.0) 08/01/20 11:10 Calcium 9.1 mg/dL (8.5-10.1) 08/01/20 11:10 Corrected Calcium 10.0 mg/dL (8.5-10.1) 08/01/20 11:10 Total Bilirubin 0.30 mg/dL (0.2-1.0) 08/01/20 11:10 AST 29 Units/L (15-37) 08/01/20 11:10 ALT 17 Units/L (12-78) 08/01/20 11:10 Alkaline Phosphatase 89 Units/L (46-116) 08/01/20 11:10 Creatine Kinase 78 Units/L (26-192) 08/01/20 11:10 CK-MB (CK-2) < 1.0 ng/mL (0-4.0) 08/01/20 11:10 CK/CKMB % Calc 1.3 % (<4) 08/01/20 11:10 Troponin I < 0.02 ng/mL (0-1.5) 08/01/20 11:10 Total Protein 7.9 g/dL (6.4-8.2) 08/01/20 11:10 Albumin 2.9 g/dL (3.4-5.0) L 08/01/20 11:10 Globulin 5.0 g/dL (2.5-4.5) H 08/01/20 11:10 Albumin/Globulin Ratio 0.6 Ratio (1.1-2.1) L 08/01/20 11:10 Specimen Type Clean catch urine 08/01/20 12:07 Urine Color Yellow (YELLOW) 08/01/20 12:07 Urine Appearance Clear (CLEAR) 08/01/20 12:07 Urine pH 6.0 (5.0 - 8.0) 08/01/20 12:07 Ur Specific Jermyn 1.020 (1.000-1.030) 08/01/20 12:07 Urine Protein 2+ (NEGATIVE) 08/01/20 12:07 Urine Glucose (UA) Negative (NEGATIVE) 08/01/20 12:07 Urine Ketones 1+ (NEGATIVE) 08/01/20 12:07 Urine Occult Blood 3+ (NEGATIVE) 08/01/20 12:07 Urine Nitrite Negative (NEGATIVE) 08/01/20 12:07 Urine Bilirubin 1+ (NEGATIVE) 08/01/20 12:07 Urine Urobilinogen 2+ (NORMAL) 08/01/20 12:07 Ur Leukocyte Esterase Negative (NEGATIVE) 08/01/20 12:07 Urine RBC 3-5 /HPF (0-3) A 08/01/20 12:07 Urine WBC 0-2 /HPF (0-5) 08/01/20 12:07 Ur Squamous Epith Cells Rare /HPF (NEGATIVE) 08/01/20 12:07 Urine Bacteria Trace /HPF (NEGATIVE) 08/01/20 12:07 Urine Mucus Few /HPF (NEGATIVE) 08/01/20 12:07 Ur Culture Indicated? No/not indicated 08/01/20 12:07 SARS-CoV-2 (PCR) Negative (NEGATIVE) 08/01/20 13:26 XRAY XRAY Interpreted by: Radiologist (REPORT NOTED AND DISCUSSED WITH PATIENT.) and Self EKG Rate: 83 Faber: Normal Rhythm: NSR Block: None Hypertrophy: LVH ST: Nonsp Opioid Opioid Risk Tool Age (Landon box if 16-45): Yes History of Preadolescent Sexual Abuse: No Total: 1 Total Score Risk Category: Low Risk Copyright: [facility] predicting aberrant behaviors Diagnosis Discharge Problem: Acute respiratory distress, Generalized weakness Pneumonia Qualifiers: Pneumonia type: due to unspecified organism Laterality: bilateral Lung location: upper lobe of lung Qualified Code(s): J18.9 - Pneumonia, unspecified organism Back pain Qualifiers: Back pain location: low back pain Chronicity: unspecified Back pain laterality: unspecified Sciatica presence: without sciatica Qualified Code(s): M54.5 - Low back pain Instructions Instructions: Shortness of Breath, Adult, [id number] Incentive Spirometer Steps to Quit Smoking, Cfin-kj-Mifv Hypoxia Cough, Adult, Zwlo-up-Fxgb Health Risks of Smoking How to Use a Nebulizer, Adult Hypertension, Qyiy-jj-[id number] Managing Your Hypertension Tobacco Use Disorder Community-Acquired Pneumonia, Adult, Cmcm-wr-[id number] Forms: Precautions for COVID19 Patient Portal Social Distancing
[2020-08-01 11:18] VITALS: BMI 21.4
[2020-08-01] MEDS ORDERED: TORADOL 30 MG VIAL IVP ONE (11:19)
[2020-08-01 11:25] LABS: BASOPHILS % (AUTO) 0.4 % (0.2-1.0); EOSINOPHILS # (AUTO) 0.2 x10^3/uL (0.0-0.2); EOSINOPHILS % (AUTO) 2.1 % (0.9-2.9); HEMATOCRIT 36.5 % (36.0-47.0); LYMPHOCYTES # (AUTO) 0.5 X10^3/uL (1.3-2.9); LYMPHOCYTES % (AUTO) 5.1 % (21.0-51.0); MEAN CORPUSCULAR HEMOGLOBIN 30.6 pg (27.0-34.0); MEAN CORPUSCULAR HGB CONC 32.9 g/dL (33.0-35.0); MEAN CORPUSCULAR VOLUME 93.3 fL (80.0-100.0); MONOCYTES # (AUTO) 0.3 x10^3/uL (0.3-0.8); MONOCYTES % (AUTO) 2.4 % (0.0-13.0); NEUTROPHILS # (AUTO) 9.4 x10^3/uL (2.2-4.8); PLATELET COUNT 197 X10^3/uL (150.0-450.0); RED BLOOD COUNT 3.91 X10^6/uL (3.5-5.4); RED CELL DISTRIBUTION WIDTH 12.9 % (11.6-16.5); WHITE BLOOD COUNT 10.4 X10^3/uL (3.6-10.0)
[2020-08-01] MEDS ORDERED: TORADOL 30 MG VIAL ONE (11:34)
[2020-08-01 11:38] LABS: LACTIC ACID 1.2 mmol/L (0.4-2.0)
[2020-08-01 11:40] LABS: BLOOD UREA NITROGEN 6 mg/dL (7-18); CALCIUM 9.1 mg/dL (8.5-10.1); CARBON DIOXIDE 27.1 mmol/L (21-32); CHLORIDE 102 mmol/L (98-107); COR NA(FOR HYPERGLY) 139 mmol/L (136-145); CREATININE 0.57 mg/dL (0.55-1.02); SODIUM 139 mmol/L (136-145); TROPONIN I < 0.02 ng/mL (0-1.5); eGFR NON BLACK RACES > 60 (>60)
[2020-08-01 11:44] LABS: ALANINE AMINOTRANSFERASE 17 Units/L (12-78); ALBUMIN 2.9 g/dL (3.4-5.0); ALKALINE PHOSPHATASE 89 Units/L (46-116); ASPARTATE AMINO TRANSFERASE 29 Units/L (15-37); CKMB % 1.3 % (<4); CREATINE KINASE 78 Units/L (26-192); CREATINE KINASE MB < 1.0 ng/mL (0-4.0); TOTAL PROTEIN 7.9 g/dL (6.4-8.2)
[2020-08-01 11:53] LABS: ABG ALLEN TEST POS; ABG BASE EXCESS 3.1 mmol/L (-2.0-2.0)
[2020-08-01 12:30] LABS: BILIRUBIN,URINE 1+ (NEGATIVE); BLOOD/HEMOGLOBIN,URINE 3+ (NEGATIVE); GLUCOSE, URINE NEGATIVE (NEGATIVE); KETONES,URINE 1+ (NEGATIVE); LEUKOCYTE ESTERASE ,URINE NEGATIVE (NEGATIVE); NITRITES,URINE NEGATIVE (NEGATIVE); PROTEIN,URINE 2+ (NEGATIVE); UROBILINOGEN,URINE 2+ (NORMAL)
[2020-08-01 12:47] LABS: APPEARANCE,URINE CLEAR (CLEAR); COLOR,URINE YELLOW (YELLOW); SQUAMOUS EPITHELIAL CELL,UR RARE /HPF (NEGATIVE)
[2020-08-01 12:48] LABS: BACTERIA,URINE TRACE /HPF (NEGATIVE); MUCUS,URINE FEW /HPF (NEGATIVE)
--- NOTE | 2020-08-01 13:16 | RAD ---
HISTORYSOBSTUDYCHEST, 1 VIEWCOMPARISONApril 2020FINDINGSThe trachea is midline. The cardiac silhouette is unremarkable . The lungs demonstrate diffuse airspace disease throughout both lungs compatible multifocal pneumonia.. The bony thorax is unremarkable.IMPRESSIONMultifocal pneumonia as aboveElectronically signed by: CHEY BE (Aug 01, 2020 13:16:45)
[2020-08-01] MEDS ORDERED: ZITHROMAX INJ 500 MG VIAL 500 MG in NS 250 ML IV 250 ML IV SCH (16:36)
[2020-08-01] MEDS ORDERED: NS 250 ML IV 250 ML IV ONE (17:15)
[2020-08-01] MEDS ORDERED: ZITHROMAX INJ 500 MG VIAL IV ONE (17:15)
[2020-08-01] MEDS ORDERED: NS 500 ML IV 500 ML IV ONE (17:15)
[2020-08-01] MEDS ORDERED: MORPHINE SULFATE INJ 2 MG INJ IVP PRN (17:26)
[2020-08-01] MEDS ORDERED: ZOFRAN INJ 4 MG VIAL IVP PRN (17:26)
[2020-08-01] MEDS ORDERED: ZOFRAN INJ 4 MG VIAL ONE (17:29)
[2020-08-01] MEDS ORDERED: MORPHINE SULFATE INJ 2 MG INJ ONE (17:29)
[2020-08-01] MEDS ORDERED: DUONEB 0.5 MG/3 MG (3 mL) NEB ONE ×2 (18:04→19:30)
[2020-08-01] MEDS: ZOSYN VIAL 3.375 GRAMS 3.375 G in NS 100 ML IV + SPIKE MINIBAG* 100 ML IV SCH ×2 (18:20→21:45)
[2020-08-01] MEDS: ROBITUSSIN DM PO SCH ×2 (18:21→22:50)
[2020-08-01] MEDS: NS 1/2 1000 ML IV 1,000 ML IV SCH (18:21)
[2020-08-01] MEDS ORDERED: NS 1/2 1000 ML IV 1,000 ML IV ONE (18:24)
[2020-08-01] MEDS ORDERED: PULMICORT NEB TX 0.5 MG NEB ONE (19:30)
[2020-08-01] MEDS: DUONEB 0.5 MG/3 MG (3 mL) NEB SCH (20:20)
[2020-08-01] MEDS: PULMICORT NEB TX 0.5 MG NEB SCH (20:20)
[2020-08-01] MEDS ORDERED: DUONEB 0.5 MG/3 MG (3 mL) NEB SCH (21:00)
[2020-08-01] MEDS ORDERED: PULMICORT NEB TX 0.5 MG NEB SCH (21:00)
[2020-08-01] MEDS: TUSSIONEX PENNKINETIC SUSP PO PRN (21:45)
[2020-08-02] MEDS: DUONEB 0.5 MG/3 MG (3 mL) NEB SCH ×6 (00:25→21:15)
[2020-08-02] MEDS ORDERED: TYLENOL 325 MG TAB PO PRN (04:12)
[2020-08-02] MEDS ORDERED: TYLENOL 325 MG TAB PO ONE (04:14)
[2020-08-02] MEDS: ZOSYN VIAL 3.375 GRAMS 3.375 G in NS 100 ML IV + SPIKE MINIBAG* 100 ML IV SCH ×3 (05:00→22:16)
--- NOTE | 2020-08-02 05:21 | RAD ---
HISTORYPNEUMONIASTUDYCHEST, 1 [id number]/27/2020FINDINGSThe trachea is midline. The cardiac silhouette is upper limits of normal in size. Worsening airspace opacity of the upper and middle lung zone. No pleural effusion.. The bony thorax stable.IMPRESSIONWorsening airspace opacity of the bilateral upper and middle lung zone.Electronically signed by: Carri Ann (Aug 02, 2020 05:20:50)
[2020-08-02 05:54] LABS: BASOPHILS % (AUTO) 0.5 % (0.2-1.0); EOSINOPHILS # (AUTO) 0.6 x10^3/uL (0.0-0.2); EOSINOPHILS % (AUTO) 9.3 % (0.9-2.9); HEMATOCRIT 33.9 % (36.0-47.0); HEMOGLOBIN 11.1 g/dL (12.0-16.0); LYMPHOCYTES # (AUTO) 0.9 X10^3/uL (1.3-2.9); LYMPHOCYTES % (AUTO) 15.1 % (21.0-51.0); MEAN CORPUSCULAR HEMOGLOBIN 30.6 pg (27.0-34.0); MEAN CORPUSCULAR HGB CONC 32.7 g/dL (33.0-35.0); MEAN CORPUSCULAR VOLUME 93.6 fL (80.0-100.0); MEAN PLATELET VOLUME 10.2 fL (7.4-11.0); MONOCYTES # (AUTO) 0.2 x10^3/uL (0.3-0.8); MONOCYTES % (AUTO) 3.6 % (0.0-13.0); NEUTROPHILS # (AUTO) 4.4 x10^3/uL (2.2-4.8); NEUTROPHILS % (AUTO) 71.5 % (42.0-75.0); PLATELET COUNT 203 X10^3/uL (150.0-450.0); RED BLOOD COUNT 3.63 X10^6/uL (3.5-5.4); RED CELL DISTRIBUTION WIDTH 13.1 % (11.6-16.5); WHITE BLOOD COUNT 6.2 X10^3/uL (3.6-10.0)
[2020-08-02 06:10] LABS: ALANINE AMINOTRANSFERASE 14 Units/L (12-78); ALBUMIN 2.4 g/dL (3.4-5.0); ALKALINE PHOSPHATASE 77 Units/L (46-116); ASPARTATE AMINO TRANSFERASE 18 Units/L (15-37); BLOOD UREA NITROGEN 5 mg/dL (7-18); CALCIUM 8.6 mg/dL (8.5-10.1); CARBON DIOXIDE 26.2 mmol/L (21-32); CHLORIDE 102 mmol/L (98-107); COR CA(FOR HYPOALB) 9.9 mg/dL (8.5-10.1); CREATININE 0.46 mg/dL (0.55-1.02); SODIUM 138 mmol/L (136-145); TOTAL PROTEIN 7.1 g/dL (6.4-8.2); eGFR NON BLACK RACES > 60 (>60)
[2020-08-02] MEDS ORDERED: POTASSIUM CHL 60 MEQ/NS 0.45% 500 ML IV PRN (06:14)
[2020-08-02] MEDS ORDERED: KLOR-CON PO PRN (06:14)
[2020-08-02] MEDS ORDERED: POTASSIUM CHLORIDE LIQ 20 MEQ UDC PO PRN (06:14)
[2020-08-02] MEDS ORDERED: MICRO K EXTEN CAP 10 MEQ PO PRN (06:14)
[2020-08-02] MEDS ORDERED: K-RIDER 10 MEQ/NS 100 ML 10 MEQ/100 ML BAG IV PRN (06:14)
[2020-08-02] MEDS ORDERED: POTASSIUM CHL 40 MEQ/NS 0.45% 500 ML IV PRN (06:14)
[2020-08-02] MEDS ORDERED: K-DUR TAB 20 MEQ PO ONE (06:21)
[2020-08-02] MEDS: K-DUR TAB 20 MEQ PO PRN (06:23)
[2020-08-02] MEDS ORDERED: VSL#3 PO ONE (07:41)
[2020-08-02] MEDS: VSL#3 PO SCH (09:36)
[2020-08-02] MEDS: ROBITUSSIN DM PO SCH ×4 (09:36→21:59)
[2020-08-02] MEDS ORDERED: ZESTRIL TAB 20 MG ONE (09:39)
[2020-08-02] MEDS: FERROUS GLUCONATE PO SCH (09:40)
[2020-08-02] MEDS: ZESTRIL TAB 20 MG PO SCH (09:41)
[2020-08-02] MEDS: LOPRESSOR TAB 50 MG PO SCH ×2 (09:41→21:59)
[2020-08-02] MEDS: PAXIL PO SCH (09:41)
[2020-08-02] MEDS: TUSSIONEX PENNKINETIC SUSP PO PRN (09:46)
[2020-08-02] MEDS: LIPASE PROTEASE AMYLASE PO SCH ×2 (09:52→13:32)
[2020-08-02] MEDS: PULMICORT NEB TX 0.5 MG NEB SCH ×2 (09:53→21:15)
[2020-08-02] MEDS: NS 1/2 1000 ML IV 1,000 ML IV SCH (12:02)
[2020-08-02] MEDS: CREON PO SCH ×2 (17:20→21:58)
[2020-08-02] MEDS: NORCO 7.5/325 MG TAB PO PRN (17:20)
[2020-08-02] MEDS: MAGNESIUM SULFATE 1 GRAM/100 mL PREMIX 1 GM/100 ML BAG IV PRN (18:21)
[2020-08-02] MEDS: NEURONTIN CAP 400 MG PO SCH (22:16)
[2020-08-02] MEDS: AMBIEN PO PRN (22:22)
[2020-08-03] MEDS: DUONEB 0.5 MG/3 MG (3 mL) NEB SCH ×5 (00:31→21:00)
[2020-08-03] MEDS: MAGNESIUM SULFATE 1 GRAM/100 mL PREMIX 1 GM/100 ML BAG IV PRN (00:43)
[2020-08-03] MEDS: NS 1/2 1000 ML IV 1,000 ML IV SCH ×4 (00:43→23:49)
[2020-08-03] MEDS ORDERED: NS 1/2 1000 ML IV 1,000 ML IV ONE ×2 (04:38→23:23)
[2020-08-03] MEDS: NORCO 7.5/325 MG TAB PO PRN (04:57)
[2020-08-03] MEDS: NEURONTIN CAP 400 MG PO SCH ×3 (05:00→21:28)
[2020-08-03] MEDS: ZOSYN VIAL 3.375 GRAMS 3.375 G in NS 100 ML IV + SPIKE MINIBAG* 100 ML IV SCH ×3 (05:00→21:28)
[2020-08-03 05:40] LABS: BASOPHILS % (AUTO) 0.7 % (0.2-1.0); EOSINOPHILS # (AUTO) 0.7 x10^3/uL (0.0-0.2); EOSINOPHILS % (AUTO) 16.8 % (0.9-2.9); HEMATOCRIT 35.3 % (36.0-47.0); HEMOGLOBIN 11.6 g/dL (12.0-16.0); LYMPHOCYTES # (AUTO) 0.9 X10^3/uL (1.3-2.9); LYMPHOCYTES % (AUTO) 21.1 % (21.0-51.0); MEAN CORPUSCULAR HEMOGLOBIN 30.6 pg (27.0-34.0); MEAN CORPUSCULAR VOLUME 92.9 fL (80.0-100.0); MEAN PLATELET VOLUME 9.2 fL (7.4-11.0); MONOCYTES # (AUTO) 0.3 x10^3/uL (0.3-0.8); MONOCYTES % (AUTO) 7.3 % (0.0-13.0); NEUTROPHILS # (AUTO) 2.3 x10^3/uL (2.2-4.8); NEUTROPHILS % (AUTO) 54.1 % (42.0-75.0); PLATELET COUNT 245 X10^3/uL (150.0-450.0); RED CELL DISTRIBUTION WIDTH 12.7 % (11.6-16.5); WHITE BLOOD COUNT 4.2 X10^3/uL (3.6-10.0)
[2020-08-03 05:50] LABS: ALANINE AMINOTRANSFERASE 14 Units/L (12-78); ALBUMIN 2.5 g/dL (3.4-5.0); ALKALINE PHOSPHATASE 78 Units/L (46-116); ASPARTATE AMINO TRANSFERASE 15 Units/L (15-37); BLOOD UREA NITROGEN 5 mg/dL (7-18); CALCIUM 8.6 mg/dL (8.5-10.1); CARBON DIOXIDE 26.7 mmol/L (21-32); CHLORIDE 103 mmol/L (98-107); COR CA(FOR HYPOALB) 9.8 mg/dL (8.5-10.1); CREATININE 0.42 mg/dL (0.55-1.02); SODIUM 138 mmol/L (136-145); TOTAL PROTEIN 7.4 g/dL (6.4-8.2); eGFR NON BLACK RACES > 60 (>60)
--- NOTE | 2020-08-03 08:34 | DR.H&P ---
H&P - History & Physical for Day of: H&P Date: 08/01/20 - Chief Complaint Chief Complaint: ccc, sob - History of Present Illness History of Present Illness: PT IS 44 BF ER ADMISSION WITH CO CCC AND FEVER FOR ~1 WEEK, THOUGHT IT WAS COLD, TOOK ANTIBIOTICS AT HOME WITHOUT IMPROVEMENT. PT HAS PMH OF CHRONIC PANCREATITIS, HTN, OA. PT HAD PNEUMONIA ON CXR. 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 Additional Surgical History: Hernia Repair - Family History Family Medical History: Diabetes Mellitus, Coronary Artery Disease, Hypertension - Social History Does patient currently use any type of tobacco product: Yes Have you used tobacco products in the last 12 months: Yes Type of Tobacco Use: Cigarettes Does any household member use tobacco: No Alcohol Use: None Drug Use: Prescription Drugs - Medications Home Medications: No Known Drug Allergies Allergy (Verified 10/31/19 08:38) CONTINUE taking the following medications lisinopril 20 mg PO DAILY 08/02/20 [History] metoprolol tartrate 100 mg PO BID 08/02/20 [History] omeprazole 10 mg PO DAILY 08/02/20 [History] paroxetine HCl 20 mg PO DAILY 08/02/20 [History] promethazine 25 mg PO Q8H PRN 08/02/20 [History] tizanidine 4 mg PO TID PRN 08/02/20 [History] - Review of Systems Constitutional: Fever, Chills, Weakness Eyes: No Symptoms Reported ENT: No Symptoms Reported Respiratory: Cough, Wheezing Cardiovascular: No Symptoms Reported Gastrointestinal: Nausea Genitourinary: No Symptoms Reported Musculoskeletal: Back Pain Neurological: No Symptoms Reported - Physical Exam Vital Signs: Temperature 98.8 F Pulse Rate [Right Radial] 64 Pulse Rate 67 Respiratory Rate 20 Blood Pressure [Right Arm] 172/104 Blood Pressure [Left Arm] 163/89 Blood Pressure [Right Arm] 160/84 Blood Pressure 167/92 O2 Sat by Pulse Oximetry 95 Oriented: Normal Eyes: Normal Nose: Normal Throat: Normal Respiratory: Rhonchi Throughout Cardiovascular: Normal : Normal Auscultation: Bowel Sounds: Normal Palpation: Normal Tenderness: Normal Skin: Decreased Turgur Musculoskeletal: Back:Thoracic, Back:Lumbar Psychiatric: Anxiety Affect: Anxious Speech Pattern: Clear, Appropriate - Assessment/Plan (1) Pneumonia Status: Acute Plan: ADMIT, COVID 19- ON ADMISSION. O2, RESP THERAPY. IV ABTX, IV HYDRATION. RESUME HOME MEDICATION (2) Acute respiratory failure Status: Acute (3) Degenerative disc disease at L5-S1 level Status: Chronic (4) Hypertension Qualifiers: Hypertension type: essential hypertension Qualified Code(s): I10 - Essential (primary) hypertension Status: Chronic (5) PUD (peptic ulcer disease) Status: Chronic - Allergies Allergies/Adverse Reactions: Allergies Allergy/AdvReac Type Severity Reaction Status Date / Time No Known Drug Allergies Allergy Verified 10/31/19 08:38
[2020-08-03] MEDS ORDERED: ZESTRIL TAB 20 MG ONE (08:54)
[2020-08-03] MEDS: FERROUS GLUCONATE PO SCH (09:03)
[2020-08-03] MEDS: CREON PO SCH ×4 (09:03→20:22)
[2020-08-03] MEDS: ZESTRIL TAB 20 MG PO SCH (09:03)
[2020-08-03] MEDS: LOPRESSOR TAB 50 MG PO SCH ×2 (09:04→21:28)
[2020-08-03] MEDS: PAXIL PO SCH (09:04)
[2020-08-03] MEDS: ROBITUSSIN DM PO SCH ×4 (09:04→21:28)
[2020-08-03] MEDS: TUSSIONEX PENNKINETIC SUSP PO PRN (09:05)
[2020-08-03] MEDS: VSL#3 PO SCH (09:05)
[2020-08-03] MEDS: PULMICORT NEB TX 0.5 MG NEB SCH ×2 (09:50→21:00)
[2020-08-03] MEDS: NICOTINE PATCH TD SCH (13:49)
[2020-08-03] MEDS: K-DUR TAB 20 MEQ PO PRN (13:51)
[2020-08-03] MEDS: NORCO 10/325 TAB PO PRN ×2 (13:52→21:59)
[2020-08-03] MEDS: AMBIEN PO PRN (22:01)
[2020-08-04] MEDS: DUONEB 0.5 MG/3 MG (3 mL) NEB SCH ×6 (01:00→21:20)
[2020-08-04] MEDS: NEURONTIN CAP 400 MG PO SCH ×3 (05:08→22:44)
[2020-08-04] MEDS: ZOSYN VIAL 3.375 GRAMS 3.375 G in NS 100 ML IV + SPIKE MINIBAG* 100 ML IV SCH ×3 (05:09→22:45)
--- NOTE | 2020-08-04 05:26 | RAD ---
HISTORYPNEUMONIASTUDYCHEST, 1 [id number]/28/2020FINDINGSThe trachea is midline. The cardiac silhouette is within normal limits. Improved confluent bilateral airspace opacities, suggest improvement in pulmonary edema. No pleural effusion or pneumothorax.. The bony thorax is unremarkable.IMPRESSIONImproved airspace opacity of the bilateral upper and middle lung zone, suggest improved pulmonary edema.Electronically signed by: Carri Ann (Aug 04, 2020 05:25:52)
[2020-08-04 05:59] LABS: BASOPHILS # (AUTO) 0.1 X10^3/uL (0.0-0.1); BASOPHILS % (AUTO) 1.4 % (0.2-1.0); EOSINOPHILS # (AUTO) 0.7 x10^3/uL (0.0-0.2); EOSINOPHILS % (AUTO) 17.5 % (0.9-2.9); HEMATOCRIT 36.8 % (36.0-47.0); HEMOGLOBIN 12.2 g/dL (12.0-16.0); MEAN CORPUSCULAR HEMOGLOBIN 30.5 pg (27.0-34.0); MEAN CORPUSCULAR HGB CONC 33.1 g/dL (33.0-35.0); MEAN CORPUSCULAR VOLUME 92.3 fL (80.0-100.0); MEAN PLATELET VOLUME 8.7 fL (7.4-11.0); MONOCYTES # (AUTO) 0.4 x10^3/uL (0.3-0.8); MONOCYTES % (AUTO) 9.2 % (0.0-13.0); NEUTROPHILS # (AUTO) 1.8 x10^3/uL (2.2-4.8); NEUTROPHILS % (AUTO) 46.9 % (42.0-75.0); PLATELET COUNT 281 X10^3/uL (150.0-450.0); RED BLOOD COUNT 3.99 X10^6/uL (3.5-5.4); RED CELL DISTRIBUTION WIDTH 12.8 % (11.6-16.5); WHITE BLOOD COUNT 3.9 X10^3/uL (3.6-10.0)
[2020-08-04 06:06] LABS: ALANINE AMINOTRANSFERASE 13 Units/L (12-78); ALBUMIN 2.7 g/dL (3.4-5.0); ALKALINE PHOSPHATASE 76 Units/L (46-116); ASPARTATE AMINO TRANSFERASE 17 Units/L (15-37); BLOOD UREA NITROGEN 8 mg/dL (7-18); CARBON DIOXIDE 24.4 mmol/L (21-32); CHLORIDE 102 mmol/L (98-107); CREATININE 0.45 mg/dL (0.55-1.02); SODIUM 138 mmol/L (136-145); TOTAL PROTEIN 7.7 g/dL (6.4-8.2); eGFR NON BLACK RACES > 60 (>60)
[2020-08-04] MEDS: NORCO 10/325 TAB PO PRN ×3 (08:01→23:10)
[2020-08-04] MEDS ORDERED: ZESTRIL TAB 20 MG ONE (08:37)
[2020-08-04] MEDS: NICOTINE PATCH TD SCH (09:04)
[2020-08-04] MEDS: VSL#3 PO SCH (09:06)
[2020-08-04] MEDS: PAXIL PO SCH (09:07)
[2020-08-04] MEDS: LOPRESSOR TAB 50 MG PO SCH ×2 (09:07→21:25)
[2020-08-04] MEDS: CREON PO SCH ×4 (09:07→21:25)
[2020-08-04] MEDS: FERROUS GLUCONATE PO SCH (09:08)
[2020-08-04] MEDS: ZESTRIL TAB 20 MG PO SCH (09:08)
[2020-08-04] MEDS: ROBITUSSIN DM PO SCH ×4 (09:09→21:25)
[2020-08-04] MEDS: PULMICORT NEB TX 0.5 MG NEB SCH ×2 (09:15→21:20)
[2020-08-04 09:30] LABS: ABG ALLEN TEST POS; ABG HCO3 25.2 mmol/L (22-26); FRACTIONATED INSPIRED OXYGEN 21
[2020-08-04] MEDS ORDERED: NS 1/2 1000 ML IV 1,000 ML IV ONE (14:30)
[2020-08-04] MEDS: NS 1/2 1000 ML IV 1,000 ML IV SCH (14:50)
[2020-08-04] MEDS: TUSSIONEX PENNKINETIC SUSP PO PRN (22:45)
[2020-08-05] MEDS: DUONEB 0.5 MG/3 MG (3 mL) NEB SCH ×2 (01:00→05:45)
[2020-08-05] MEDS ORDERED: NS 1/2 1000 ML IV 1,000 ML IV ONE (04:08)
[2020-08-05] MEDS: NS 1/2 1000 ML IV 1,000 ML IV SCH ×2 (04:23→08:46)
[2020-08-05] MEDS: ZOSYN VIAL 3.375 GRAMS 3.375 G in NS 100 ML IV + SPIKE MINIBAG* 100 ML IV SCH (06:05)
[2020-08-05] MEDS: NEURONTIN CAP 400 MG PO SCH (06:05)
[2020-08-05 06:43] LABS: ALANINE AMINOTRANSFERASE 14 Units/L (12-78); ALKALINE PHOSPHATASE 77 Units/L (46-116); ASPARTATE AMINO TRANSFERASE 17 Units/L (15-37); BLOOD UREA NITROGEN 8 mg/dL (7-18); CALCIUM 9.3 mg/dL (8.5-10.1); CARBON DIOXIDE 25.9 mmol/L (21-32); CHLORIDE 100 mmol/L (98-107); COR CA(FOR HYPOALB) 10.1 mg/dL (8.5-10.1); CREATININE 0.56 mg/dL (0.55-1.02); SODIUM 137 mmol/L (136-145); TOTAL PROTEIN 8.1 g/dL (6.4-8.2); eGFR NON BLACK RACES > 60 (>60)
[2020-08-05 06:57] LABS: BASOPHILS # (AUTO) 0.1 X10^3/uL (0.0-0.1); BASOPHILS % (AUTO) 1.6 % (0.2-1.0); EOSINOPHILS # (AUTO) 0.6 x10^3/uL (0.0-0.2); EOSINOPHILS % (AUTO) 15.1 % (0.9-2.9); HEMATOCRIT 38.7 % (36.0-47.0); HEMOGLOBIN 12.7 g/dL (12.0-16.0); LYMPHOCYTES # (AUTO) 1.1 X10^3/uL (1.3-2.9); LYMPHOCYTES % (AUTO) 25.3 % (21.0-51.0); MEAN CORPUSCULAR HEMOGLOBIN 30.4 pg (27.0-34.0); MEAN CORPUSCULAR HGB CONC 32.7 g/dL (33.0-35.0); MEAN CORPUSCULAR VOLUME 92.9 fL (80.0-100.0); MEAN PLATELET VOLUME 9.3 fL (7.4-11.0); MONOCYTES # (AUTO) 0.5 x10^3/uL (0.3-0.8); MONOCYTES % (AUTO) 11.4 % (0.0-13.0); NEUTROPHILS % (AUTO) 46.6 % (42.0-75.0); PLATELET COUNT 330 X10^3/uL (150.0-450.0); RED BLOOD COUNT 4.16 X10^6/uL (3.5-5.4); RED CELL DISTRIBUTION WIDTH 12.7 % (11.6-16.5); WHITE BLOOD COUNT 4.2 X10^3/uL (3.6-10.0)
[2020-08-05 08:04] LABS: PLATELET MORPHOLOGY COMMENT NORMAL (NORMAL)
[2020-08-05] MEDS ORDERED: ZESTRIL TAB 20 MG ONE (08:37)
[2020-08-05] MEDS: ZESTRIL TAB 20 MG PO SCH (08:44)
[2020-08-05] MEDS: FERROUS GLUCONATE PO SCH (08:44)
[2020-08-05] MEDS: CREON PO SCH (08:44)
[2020-08-05] MEDS: PAXIL PO SCH (08:45)
[2020-08-05] MEDS: LOPRESSOR TAB 50 MG PO SCH (08:45)
[2020-08-05] MEDS: NICOTINE PATCH TD SCH (08:45)
[2020-08-05] MEDS: VSL#3 PO SCH (08:46)
[2020-08-05] MEDS: ROBITUSSIN DM PO SCH (08:46)
[2020-08-05] MEDS: NORCO 10/325 TAB PO PRN (08:58)
[2020-08-05 09:25] VITALS: BP 138/97
== END 2020-08-05 09:20 | disposition home or self-care (01) | DRG 178 ==
LOC: ER 11:01 → MED/SURG 16:58
PROVIDERS: ADMIT Internal Medicine; ATTEND Internal Medicine

== ENCOUNTER 2025-08-30 02:46 | Observation (INO) ==
[2025-08-30 03:32] LABS: eGFR NON BLACK RACES > 60 (>60)
[2025-08-30] MEDS: TORADOL 30 MG VIAL IVP ONE (03:45)
[2025-08-30] MEDS: ZOFRAN INJ 4 MG VIAL IVP ONE (03:45)
--- NOTE | 2025-08-30 03:45 | CT ---
EXAM: CT ABDOMEN AND PELVIS WITHOUT CONTRAST HISTORY: Abdominal pain; C/O ABDOMINAL PAIN, BACK PAIN AND VOMITING X 2 DAYS. SX: HERNIA REPAIR, HYSTERECTOMY COMPARISON: 12/15/2017 TECHNIQUE: Axial images were obtained of the abdomen and pelvis without IV contrast. Sagittal and coronal reformatted images were provided. All images were reviewed in a variety of windows and levels. RADIATION REDUCTION TECHNIQUE: Automated exposure control, adjustment of the mA or kV according to patient size, or iterative reconstruction techniques were used. FINDINGS: Please note that lack of IV contrast does limit evaluation of the soft tissues and vascular detail. The visualized lower lung zones exhibit linear atelectasis within the right lung base. No pleural effusion. The heart size is within normal limits. There is no evidence of a pericardial effusion. The liver, spleen, pancreas, adrenal glands, and kidneys are grossly unremarkable. Post cholecystectomy changes. Intra and extrahepatic biliary ductal dilatation again noted. The kidneys are normal in size. There are bilateral punctate renal calculi, nonobstructing. There is atherosclerotic calcification throughout the abdominal aorta and branches without aneurysmal dilatation. The stomach, small bowel, and colon are grossly unremarkable. There are no inflammatory changes in the right lower quadrant to suggest secondary signs of acute appendicitis. Appendix is not visualized. There is no evidence of retroperitoneal or mesenteric lymphadenopathy. The uterus has been removed. The visualized bones demonstrate degenerative changes. There are no concerning lytic or blastic lesions identified. IMPRESSION: Post cholecystectomy changes. Intra and extrahepatic biliary ductal dilatation again noted and unchanged from previous 12/15/2017. ERCP or MRCP may be helpful in further evaluation. Bilateral nephrolithiasis, nonobstructing. No acute abdominal or pelvic pathology THIS IS AN ELECTRONICALLY VERIFIED FINAL REPORT 08/30/2025 3:41 AM - Electronically signed by Devan Gonzalez MD
[2025-08-30 03:46] LABS: BLOOD/HEMOGLOBIN,URINE 4+ (NEGATIVE); LEUKOCYTE ESTERASE ,URINE 1+ (NEGATIVE); NITRITES,URINE NEGATIVE (NEGATIVE)
[2025-08-30 03:50] LABS: RED CELL DISTRIBUTION WIDTH 16.3 % (11.6-16.5)
[2025-08-30 03:54] LABS: APPEARANCE,URINE SLIGHTLY HAZY (CLEAR)
[2025-08-30 03:55] LABS: SQUAMOUS EPITHELIAL CELL,UR MODERATE /HPF (NEGATIVE)
[2025-08-30 04:01] LABS: MEAN PLATELET VOLUME 8.6 fL (7.4-11.0)
[2025-08-30 04:13] LABS: COR CA(FOR HYPOALB) 9.2 mg/dL (8.5-10.1); COR NA(FOR HYPERGLY) 138 mmol/L (136-145); CREATININE 0.66 mg/dL (0.55-1.02)
--- NOTE | 2025-08-30 04:19 | ED.ABDFE ---
HPI Time Seen Time Seen by Provider: 08/30/25 04:18 PCP Primary Care Physician: EKATERINA YEUNG HPI Comment HPI Comment: Abdominal pain began 2 days ago gradual in onset associated with nausea and vomiting .Concerned she may have pancreatitis .Has not eaten anything unusual or different .No one at home with similar symptoms Complaint Doctors Chief Complaint Comments: mid abdominal pain ,mid back pain Chief Complaint:: PT AMBULATORY IN ED WITH C/O ABDOMINAL PAIN, BACK PAIN AND VOMITING X 2 DAYS. COVID-19 Coronavirus risk:travel/contact w/high risk person: No Has patient experienced Coronavirus symptoms: No Reviewed Nurses Notes Review: Yes Source History Provided: Patient Mode of arrival Mode of Arrival: Ambulatory Timing Onset of Chief Complaint: 08/28/25 Came on: Gradually Duration Since Onset: Since Onset Duration: Days Location Location: Periumbilical Severity Severity: Moderate Quality Quality: Cramping and Sharp Context History of: Abdominal surgery Modifying factors Worsening Factors: Nothing Improving Factors: Lying Still Associated signs and symptoms Associated Signs and Symptoms: Nausea and Vomiting PMH PMH Past Medical History: Yes Past Medical History: Anemia, Anxiety, Arthritis, Asthma, Depression, GERD, Hypertension, Hypothyroidism and PUD Past Medical History Comment: BLOOD CLOTS PANCREATITIS DDD Past Surgical History: Yes Surgical History: Hysterectomy and Other Past Surgical History Comment: BILATERAL INGUINAL HERNIA REPAIR Family History History of Family Medical Conditions: Yes Family Medical History: Diabetes Mellitus, Coronary Artery Disease and Hypertension Social History Does patient currently use any type of tobacco product: Yes Have you used tobacco products in the last 12 months: Yes Type of Tobacco Use: Cigarettes Does any household member use tobacco: No Alcohol Use: None Do you use any recreational Drugs:: No Lives With: Spouse Lives Where: Home Travel Risk Coronavirus risk:travel/contact w/high risk person: No Has patient experienced Coronavirus symptoms: No Infectious screening In the last 2 months have you had wt loss of >10#?: NO Have you had fever, night sweats or hemotysis?: No Have you traveled outside the country in the last 6 months?: No Isolation: Standard ROS Review of Systems Constitutional: No Symptoms Reported Eyes: No Symptoms Reported ENTM: No Symptoms Reported Respiratoy: No Symptoms Reported Cardiovascular: No Symptoms Reported Gastrointestinal/Abdominal: See HPI Genitourinary: Other (urgency ) Neurological: No Symptoms Reported Musculoskeletal: Back Pain Integumentary: No Symptoms Reported Hematologic/Lymphatic: No Symptoms Reported Endocrine: No Symptoms Reported Psychiatric: No Symptoms Reported PE Vital Signs Vitals: Vital Signs Temperature 98.2 F Pulse Rate 83 Pulse Rate 80 Pulse Rate 104 Pulse Rate 97 Pulse Rate 106 Respiratory Rate 20 Respiratory Rate 20 Respiratory Rate 20 Respiratory Rate 20 Respiratory Rate 20 Respiratory Rate 20 Blood Pressure 150/94 Blood Pressure 145/92 Blood Pressure 153/97 Blood Pressure 158/99 Blood Pressure 135/94 O2 Sat by Pulse Oximetry 99 O2 Sat by Pulse Oximetry 97 O2 Sat by Pulse Oximetry 97 O2 Sat by Pulse Oximetry 97 O2 Sat by Pulse Oximetry 99 General Limitations: No Limitations General Appearance: Alert, Anxious and In Distress Head Head Exam: Normal Inspection, Atraumatic and Normocephalic Eyes Eye exam: Normal Appearance, PERRL and EOMI ENT ENT Exam: Mucous Membranes Moist Neck Neck Exam: Normal Inspection and Full ROM Chest Chest Inspection: Normal Inspection and Symmetric Chest Wall Rise Respiratory Respiratory Exam: Normal Lung Sounds Bilat Respiratory Exam: Bilateral: Clear to Auscultation Cardiovascular Cardiovascular Exam: +S1 and +S2 Abdominal Exam Abdominal Exam: Normal Inspection, Soft, Tenderness and Hyperactive Bowel Sounds Abdominal Tenderness: Moderate and Other (mid abdomen ) Back Back Exam: Normal Inspection and Tenderness (paravertebral muscles ) Extremeties Extremities Exam: Normal Inspection Neurologic Neurological Exam: Alert MDM Differential Diagnosis Differential Diagnosis- Considerations may include:: Gastroenteritis, Pancreatitis, Urinary tract infection and Urolithiasis COURSE Treatment Treatment: labs ,u/a and ct abdomen/plevis iv toradol ,levsin ODT ROR Labs Reviewed Laboratory Results Reviewed?: Yes 08/30/25 03:52 08/30/25 03:52 Laboratory: WBC 7.2 X10^3/uL (3.6-10.0) 08/30/25 03:52 RBC 4.23 X10^6/uL (3.5-5.4) 08/30/25 03:52 Hgb 12.1 g/dL (12.0-16.0) 08/30/25 03:52 Hct 36.5 % (36.0-47.0) 08/30/25 03:52 MCV 86.1 fL (80.0-100.0) 08/30/25 03:52 MCH 28.5 pg (27.0-34.0) 08/30/25 03:52 MCHC 33.1 g/dL (33.0-35.0) 08/30/25 03:52 RDW 16.3 % (11.6-16.5) 08/30/25 03:52 Plt Count 255 X10^3/uL (150.0-450.0) 08/30/25 03:52 MPV 8.6 fL (7.4-11.0) 08/30/25 03:52 Neut % (Auto) 75.3 % (42.0-75.0) H 08/30/25 03:52 Lymph % (Auto) 16.4 % (21.0-51.0) L 08/30/25 03:52 [place] % (Auto) 7.4 % (0.0-13.0) 08/30/25 03:52 Eos % (Auto) 0.2 % (0.9-2.9) L 08/30/25 03:52 Baso % (Auto) 0.7 % (0.2-1.0) 08/30/25 03:52 Neut # (Auto) 5.4 x10^3/uL (2.2-4.8) H 08/30/25 03:52 Lymph # (Auto) 1.2 X10^3/uL (1.3-2.9) L 08/30/25 03:52 [place] # (Auto) 0.5 x10^3/uL (0.3-0.8) 08/30/25 03:52 Eos # (Auto) 0.0 x10^3/uL (0.0-0.2) 08/30/25 03:52 Baso # (Auto) 0.1 X10^3/uL (0.0-0.1) 08/30/25 03:52 Absolute Nucleated RBC 0.1 /100WBC 08/30/25 03:52 Sodium 138 mmol/L (136-145) 08/30/25 03:52 Corrected Sodium 138 mmol/L (136-145) 08/30/25 03:52 Potassium 3.1 mmol/L (3.5-5.1) L 08/30/25 03:52 Chloride 101 mmol/L (98-107) 08/30/25 03:52 Carbon Dioxide 28.9 mmol/L (21-32) 08/30/25 03:52 BUN 14 mg/dL (7-18) 08/30/25 03:52 Creatinine 0.66 mg/dL (0.55-1.02) 08/30/25 03:52 Est GFR (MDRD) Af Amer > 60 (>60) 08/30/25 03:52 Est GFR (MDRD) Non-Af > 60 (>60) 08/30/25 03:52 Glucose 114 mg/dL (65-99) H 08/30/25 03:52 Calcium 8.5 mg/dL (8.5-10.1) 08/30/25 03:52 Corrected Calcium 9.2 mg/dL (8.5-10.1) 08/30/25 03:52 Total Bilirubin 0.20 mg/dL (0.2-1.0) 08/30/25 03:52 AST 13 Units/L (15-37) L 08/30/25 03:52 ALT 14 Units/L (12-78) 08/30/25 03:52 Alkaline Phosphatase 101 Units/L (46-116) 08/30/25 03:52 Total Protein 7.8 g/dL (6.4-8.2) 08/30/25 03:52 Albumin 3.1 g/dL (3.4-5.0) L 08/30/25 03:52 Globulin 4.7 g/dL (2.5-4.5) H 08/30/25 03:52 Albumin/Globulin Ratio 0.7 Ratio (1.1-2.1) L 08/30/25 03:52 Amylase 175 Units/L (25-115) H 08/30/25 03:52 Lipase 417 Units/L (16-77) H 08/30/25 03:52 Specimen Type Clean catch urine 08/30/25 03:30 Urine Color Dark yellow (YELLOW) 08/30/25 03:30 Urine Appearance Slightly hazy (CLEAR) 08/30/25 03:30 Urine pH 6.0 (5.0 - 8.0) 08/30/25 03:30 Ur Specific [place] 1.020 (1.000-1.030) 08/30/25 03:30 Urine Protein 3+ (NEGATIVE) 08/30/25 03:30 Urine Glucose (UA) Negative (NEGATIVE) 08/30/25 03:30 Urine Ketones Negative (NEGATIVE) 08/30/25 03:30 Urine Blood 4+ (NEGATIVE) 08/30/25 03:30 Urine Nitrite Negative (NEGATIVE) 08/30/25 03:30 Urine Bilirubin Negative (NEGATIVE) 08/30/25 03:30 Urine Urobilinogen Normal (NORMAL) 08/30/25 03:30 Ur Leukocyte Esterase 1+ (NEGATIVE) 08/30/25 03:30 Urine RBC 5-10 /HPF (0-3) A 08/30/25 03:30 Urine WBC 20-30 /HPF (0-5) A 08/30/25 03:30 Ur Squamous Epith Cells Moderate /HPF (NEGATIVE) 08/30/25 03:30 Urine Bacteria Trace /HPF (NEGATIVE) 08/30/25 03:30 Ur Culture Indicated? Yes/culture set up 08/30/25 03:30 Opioid Opioid Risk Tool Age ([place] box if 16-45): No History of Preadolescent Sexual Abuse: No Total: 0 Total Score Risk Category: Low Risk Copyright: Matthew LAWTON predicting aberrant behaviors Discharge Plan Diagnosis Discharge Problem: Acute pancreatitis, Acute hypokalemia, Acute cystitis Discharge Plan Patient Disposition: 09 ADMITTED INPATIENT Condition: Stable Prescriptions: No Action clonidine HCl 0.1 mg tablet 0.1 mg PO BID metoprolol tartrate 100 mg tablet 100 mg PO QDAY promethazine 12.5 mg tablet 12.5 mg PO TID PRN tramadol 50 mg tablet 50 mg PO TID PRN omeprazole 10 mg capsule,delayed release(DR/EC) 10 mg PO QDAY gabapentin 800 mg tablet 800 mg PO TID cyproheptadine 2 mg/5 mL syrup 2 mg PO BID amlodipine 10 mg tablet 10 mg PO QDAY lisinopril 30 mg tablet 30 mg PO QDAY estradiol 2 mg tablet 2 mg PO QDAY mirtazapine 15 mg tablet 15 mg PO QPM clobetasol 0.05 % ointment 1 applic TOPICAL BID albuterol sulfate 90 mcg/actuation HFA aerosol inhaler 2 inh inhalation Q4H PRN escitalopram oxalate 10 mg tablet 10 mg PO QDAY Breztri Aerosphere 160-9-4.8 mcg/actuation HFA aerosol inhaler 1 inh inhalation BID Health Concerns: Post Hospitalization: new medications and changes needed to prevent readmission or further decline. Pt educated and given instructions on all concerns. Plan of Treatment: Continue with present treatment and follow up plan. Pt is to keep follow up appointment as instructed and take medications as ordered. Orders to Discharge Patient Discharge Orders: Transfer (Routine); Ordered 08/30/25 Ordered By: Brian Fitzgerald Follow ups/Referrals Follow ups/Referrals: Heidi Yeung [Primary Care Provider, Unknown] - 3 days Instructions Stand Alone Forms: Find Help Web Site, Post Hospital Follow Up Care Print Language: ZIMBABWEAN Provider Note Additional Notes mid abdominal in with elevated lipase .Pt has acute pancreatitis .Spoke with Dr Burnette agreed to admit patient .CT abdomen /pelvis cholecystectomy but has intrahepatic duct dilatation may need MRCP
[2025-08-30] MEDS: HYOSCYAMINE SULFATE ODT PO ONE (04:33)
[2025-08-30] MEDS: LR 1,000 ML IV 1,000 ML IV ONE (05:00)
[2025-08-30] MEDS: CIPRO TAB 500 MG PO ONE (05:01)
[2025-08-30 06:12] VITALS: BMI 21.2
[2025-08-30] MEDS: HYOSCYAMINE SULFATE ODT ONE (06:20)
[2025-08-30] MEDS: DILAUDID INJ IVP PRN (06:27)
[2025-08-30] MEDS: CONSULT PHARMACY - POTASSIUM & MAGNESIUM XX SCH (06:28)
[2025-08-30 07:16] LABS: COR CA(FOR HYPOALB) 9.5 mg/dL (8.5-10.1); CREATININE 0.70 mg/dL (0.55-1.02); eGFR NON BLACK RACES > 60 (>60)
[2025-08-30] MEDS: CIPRO TAB 500 MG PO SCH (09:06)
[2025-08-30] MEDS: LEXAPRO PO SCH (09:06)
[2025-08-30] MEDS: ESTRACE PO SCH (09:06)
[2025-08-30] MEDS: NORVASC TAB 10 MG PO SCH (09:06)
[2025-08-30] MEDS: K-DUR TAB 20 MEQ PO SCH (09:06)
[2025-08-30] MEDS: ZESTRIL TAB 10 MG PO SCH (09:07)
[2025-08-30] MEDS: LOPRESSOR TAB 50 MG PO SCH (09:07)
[2025-08-30] MEDS: NICOTINE PATCH TD SCH (09:20)
[2025-08-30] MEDS: NEURONTIN CAP 400 MG PO SCH (09:20)
[2025-08-30] MEDS: MAG-OX TAB PO SCH (09:20)
[2025-08-30] MEDS: NS 1,000 ML IV 1,000 ML IV SCH (09:20)
[2025-08-30] MEDS: CATAPRES-TTS-1 TD SCH (09:21)
[2025-08-30] MEDS: LEXAPRO ONE (09:28)
--- NOTE | 2025-08-30 14:50 | DR.H&P ---
H&P History & Physical for Day of: H&P Date: 08/30/25 Chief Complaint Chief Complaint: back and belly pain History of Present Illness History of Present Illness: Started 08/28. N/V, back pain, belly pain. Prior episode. Cigarettes and Goody powder daily. No EtOH. ER workup showed elevated lipase, nonobstructing bilateral renal stones, and dilated biliary ducts. UA abnormal. Vitals overall stable with hypertension. Patient still with epigastric pain, bilateral pelvic pain, and poor appetite. Does feel better today than yesterday. ROS: 12 point ROS positive for nausea, vomiting, abdominal pain, pelvic pain, malaise, and anorexia. Otherwise negative. PE: Well-developed, well-nourished female in no acute distress. Resting company in bed. Alert and oriented x 4. Head NCAT, hearing grossly normal, EOMI. Heart regular rate and rhythm. Lungs clear with strong, unlabored speech. Belly tender around the epigastrium with no distention. Bowel sounds present. No swelling of her extremities and able to move all 4 equally well. Past Medical History Past Medical History: Anemia, Anxiety, Arthritis, Asthma, Depression, GERD, Hypertension, Hypothyroidism and PUD Additional Medical History: Hiatal Hernia, Chronic Pancreatitis Past Surgical History Surgical History: Cholecystectomy, Hysterectomy and Other Additional Surgical History: Hernia Repair Family History Family Medical History: Diabetes Mellitus, Coronary Artery Disease and Hypertension Social History Does patient currently use any type of tobacco product: Yes Have you used tobacco products in the last 12 months: Yes Type of Tobacco Use: Cigarettes Does any household member use tobacco: No Alcohol Use: None Drug Use: None Medications Home Medications: Home Medications Medication Instructions Recorded Confirmed Type albuterol sulfate 90 mcg/actuation 2 inh inhalation Q4 H PRN 08/30/25 08/30/25 History aerosol inhaler amlodipine 10 mg tablet 10 mg PO QDAY 08/30/2508/30 History budesonide 160 mcg-glycopyr 9 1 inh inhalation BID 08/30/25 History mcg-formot 4.8 mcg/actuation HFA inhaler (Breztri Aerosphere) clobetasol 0.05 % topical ointment 1 applic topical BI D 08/30/25 08/30/25 History clonidine HCl 0.1 mg tablet 0.1 mg PO BID 08/30/25 History cyproheptadine 2 mg/5 mL oral syrup 2 mg PO BID 08/30/25 History escitalopram oxalate 10 mg tablet 10 mg PO QDAY 08/30/25 History estradiol 2 mg tablet 2 mg PO QDAY 08/30/25 History gabapentin 800 mg tablet 800 mg PO TID 08/30/2508/30 History lisinopril 30 mg tablet 30 mg PO QDAY 08/30/2508/30 History metoprolol tartrate 100 mg tablet 100 mg PO QDAY 08/3008/30/25 History mirtazapine 15 mg tablet 15 mg PO QPM 08/30/25 History omeprazole 10 mg capsule,delayed 10 mg PO QDAY 5 08/30/25 History release promethazine 12.5 mg tablet 12.5 mg PO TID PRN 5 08/30/25 History tramadol 50 mg tablet 50 mg PO TID PRN 08/30/25 History Allergies Allergies Allergy/AdvReac Type Severity Reaction Status Date / Time morphine Allergy Verified 08/30/25 03:04 Penicillins Allergy Verified 08/30/25 03:04 Labs 08/30/25 03:52 08/30/25 06:37 Labs: Laboratory WBC 7.2 X10^3/uL (3.6-10.0) 08/30/25 03:52 RBC 4.23 X10^6/uL (3.5-5.4) 08/30/25 03:52 Hgb 12.1 g/dL (12.0-16.0) 08/30/25 03:52 Hct 36.5 % (36.0-47.0) 08/30/25 03:52 MCV 86.1 fL (80.0-100.0) 08/30/25 03:52 MCH 28.5 pg (27.0-34.0) 08/30/25 03:52 MCHC 33.1 g/dL (33.0-35.0) 08/30/25 03:52 RDW 16.3 % (11.6-16.5) 08/30/25 03:52 Plt Count 255 X10^3/uL (150.0-450.0) 08/30/25 03:52 MPV 8.6 fL (7.4-11.0) 08/30/25 03:52 Neut % (Auto) 75.3 % (42.0-75.0) H 08/30/25 03:52 Lymph % (Auto) 16.4 % (21.0-51.0) L 08/30/25 03:52 [place] % (Auto) 7.4 % (0.0-13.0) 08/30/25 03:52 Eos % (Auto) 0.2 % (0.9-2.9) L 08/30/25 03:52 Baso % (Auto) 0.7 % (0.2-1.0) 08/30/25 03:52 Neut # (Auto) 5.4 x10^3/uL (2.2-4.8) H 08/30/25 03:52 Lymph # (Auto) 1.2 X10^3/uL (1.3-2.9) L 08/30/25 03:52 [place] # (Auto) 0.5 x10^3/uL (0.3-0.8) 08/30/25 03:52 Eos # (Auto) 0.0 x10^3/uL (0.0-0.2) 08/30/25 03:52 Baso # (Auto) 0.1 X10^3/uL (0.0-0.1) 08/30/25 03:52 Absolute Nucleated RBC 0.1 /100WBC 08/30/25 03:52 Sodium 138 mmol/L (136-145) 08/30/25 06:37 Corrected Sodium TNP 08/30/25 06:37 Potassium 3.1 mmol/L (3.5-5.1) L 08/30/25 06:37 Chloride 102 mmol/L (98-107) 08/30/25 06:37 Carbon Dioxide 27.5 mmol/L (21-32) 08/30/25 06:37 BUN 14 mg/dL (7-18) 08/30/25 06:37 Creatinine 0.70 mg/dL (0.55-1.02) 08/30/25 06:37 Est GFR (MDRD) Af Amer > 60 (>60) 08/30/25 06:37 Est GFR (MDRD) Non-Af > 60 (>60) 08/30/25 06:37 Glucose 102 mg/dL (65-99) H 08/30/25 06:37 Calcium 8.5 mg/dL (8.5-10.1) 08/30/25 06:37 Corrected Calcium 9.5 mg/dL (8.5-10.1) 08/30/25 06:37 Total Bilirubin 0.20 mg/dL (0.2-1.0) 08/30/25 06:37 AST 14 Units/L (15-37) L 08/30/25 06:37 ALT 13 Units/L (12-78) 08/30/25 06:37 Alkaline Phosphatase 95 Units/L (46-116) 08/30/25 06:37 Total Protein 7.4 g/dL (6.4-8.2) 08/30/25 06:37 Albumin 2.8 g/dL (3.4-5.0) L 08/30/25 06:37 Globulin 4.6 g/dL (2.5-4.5) H 08/30/25 06:37 Albumin/Globulin Ratio 0.6 Ratio (1.1-2.1) L 08/30/25 06:37 Amylase 175 Units/L (25-115) H 08/30/25 03:52 Lipase 354 Units/L (16-77) H 08/30/25 06:37 Specimen Type Clean catch urine 08/30/25 03:30 Urine Color Dark yellow (YELLOW) 08/30/25 03:30 Urine Appearance Slightly hazy (CLEAR) 08/30/25 03:30 Urine pH 6.0 (5.0 - 8.0) 08/30/25 03:30 Ur Specific [place] 1.020 (1.000-1.030) 08/30/25 03:30 Urine Protein 3+ (NEGATIVE) 08/30/25 03:30 Urine Glucose (UA) Negative (NEGATIVE) 08/30/25 03:30 Urine Ketones Negative (NEGATIVE) 08/30/25 03:30 Urine Blood 4+ (NEGATIVE) 08/30/25 03:30 Urine Nitrite Negative (NEGATIVE) 08/30/25 03:30 Urine Bilirubin Negative (NEGATIVE) 08/30/25 03:30 Urine Urobilinogen Normal (NORMAL) 08/30/25 03:30 Ur Leukocyte Esterase 1+ (NEGATIVE) 08/30/25 03:30 Urine RBC 5-10 /HPF (0-3) A 08/30/25 03:30 Urine WBC 20-30 /HPF (0-5) A 08/30/25 03:30 Ur Squamous Epith Cells Moderate /HPF (NEGATIVE) 08/30/25 03:30 Urine Bacteria Trace /HPF (NEGATIVE) 08/30/25 03:30 Ur Culture Indicated? Yes/culture set up 08/30/25 03:30 Physical Exam Vital Signs: Vital Signs Temperature 98.7 F Temperature 98.2 F Pulse Rate [Left] 85 Pulse Rate 78 Pulse Rate 82 Pulse Rate 89 Pulse Rate 79 Pulse Rate 79 Pulse Rate 73 Pulse Rate 83 Pulse Rate 80 Pulse Rate 104 Pulse Rate 97 Pulse Rate 106 Respiratory Rate 18 Respiratory Rate 18 Respiratory Rate 20 Respiratory Rate 20 Respiratory Rate 20 Respiratory Rate 20 Respiratory Rate 20 Respiratory Rate 20 Respiratory Rate 20 Respiratory Rate 20 Blood Pressure [Left Arm] 183/98 Blood Pressure 170/96 Blood Pressure 163/93 Blood Pressure 164/94 Blood Pressure 150/94 Blood Pressure 145/92 Blood Pressure 153/97 Blood Pressure 158/99 Blood Pressure 135/94 O2 Sat by Pulse Oximetry 96 O2 Sat by Pulse Oximetry 99 O2 Sat by Pulse Oximetry 99 O2 Sat by Pulse Oximetry 99 O2 Sat by Pulse Oximetry 97 O2 Sat by Pulse Oximetry 98 O2 Sat by Pulse Oximetry 98 O2 Sat by Pulse Oximetry 99 O2 Sat by Pulse Oximetry 97 O2 Sat by Pulse Oximetry 97 O2 Sat by Pulse Oximetry 97 O2 Sat by Pulse Oximetry 99 Assessment/Plan (1) Acute pancreatitis: Qualifiers: Acute pancreatitis complication: no infection or necrosis Pancreatitis type: idiopathic Qualified Code(s): K85.00 - Idiopathic acute pancreatitis without necrosis or infection Narrative Support Text: Clonidine patch, low-fat CLD (AAT), Zofran prn, NS IVFs, ambulate as tolerated, IV dilaudid prn for now, nicotine patch. Consider MRCP if no improvement. Status: Acute (2) Acute hypokalemia: Status: Acute (3) Generalized anxiety disorder: Status: Chronic (4) Degeneration of intervertebral disc of lumbosacral region: Qualifiers: Disc-related pain type: discogenic back pain only Qualified Code(s): M 51.370 - Other intervertebral disc degeneration, lumbosacral region with discogenic back pain only Status: Chronic (5) Hypertension: Qualifiers: Hypertension type: primary hypertension Qualified Code(s): I10 - Essential (primary) hypertension Status: Chronic (6) Cigarette smoker: Status: Chronic
[2025-08-30] MEDS: ZOFRAN INJ 4 MG VIAL IVP PRN (15:06)
[2025-08-30] MEDS: REMERON PO SCH (21:32)
[2025-08-31] MEDS: PATIENT'S HOME MEDICATION (Budesonide-Glycopyr-Formoterol [Breztri Aerosphere] 160-9-4.8 m IN SCH (05:57)
[2025-08-31 05:58] LABS: MEAN PLATELET VOLUME 8.8 fL (7.4-11.0); RED CELL DISTRIBUTION WIDTH 16.1 % (11.6-16.5)
[2025-08-31 06:24] LABS: COR CA(FOR HYPOALB) 9.1 mg/dL (8.5-10.1); CREATININE 0.45 mg/dL (0.55-1.02); eGFR NON BLACK RACES > 60 (>60)
[2025-08-31] MEDS ORDERED: CONSULT PHARMACY - POTASSIUM & MAGNESIUM XX SCH (07:00)
[2025-08-31] MEDS ORDERED: LEXAPRO ONE (07:40)
[2025-08-31 08:31] VITALS: RESP 18
[2025-08-31] MEDS: K-DUR TAB 20 MEQ PO SCH (08:34)
[2025-08-31] MEDS ORDERED: PHARMACY CONSULT XX SCH (09:00)
[2025-08-31] MEDS: LOVENOX INJ 40 MG SYR SC SCH (10:32)
[2025-08-31] MEDS: MICARDIS PO SCH (10:33)
[2025-08-31 10:43] VITALS: TEMP 98.3
--- NOTE | 2025-08-31 14:09 | PCM.DCPLAN ---
DISCHARGE SUMMARY Admission Date Date of Admission: 08/30/25 Discharge Date Discharge Date: 08/31/25 Admission Diagnoses (1) Acute pancreatitis: Status: Acute (2) Acute hypokalemia: Status: Acute (3) Generalized anxiety disorder: Status: Chronic (4) Degeneration of intervertebral disc of lumbosacral region: Status: Chronic (5) Hypertension: Status: Chronic (6) Cigarette smoker: Status: Chronic (7) Sepsis due to gram-negative UTI: Status: Acute Discharge Medications Discharge Medications: Home Medication List albuterol sulfate 90 mcg/actuation aerosol inhaler 2 inh inhalation Q4H PRN 08/30/25 [History] amlodipine 10 mg tablet 10 mg PO QDAY 08/30/25 [History] budesonide 160 mcg-glycopyr 9 mcg-formot 4.8 mcg/actuation HFA inhaler (Breztri Aerosphere) 1 inh inhalation BID 08/30/25 [History] clobetasol 0.05 % topical ointment 1 applic topical BID 08/30/25 [History] clonidine HCl 0.1 mg tablet 0.1 mg PO BID 08/30/25 [History] cyproheptadine 2 mg/5 mL oral syrup 2 mg PO BID 08/30/25 [History] escitalopram oxalate 10 mg tablet 10 mg PO QDAY 08/30/25 [History] estradiol 2 mg tablet 2 mg PO QDAY 08/30/25 [History] gabapentin 800 mg tablet 800 mg PO TID 08/30/25 [History] lisinopril 30 mg tablet 30 mg PO QDAY 08/30/25 [History] metoprolol tartrate 100 mg tablet 100 mg PO QDAY 08/30/25 [History] mirtazapine 15 mg tablet 15 mg PO QPM 08/30/25 [History] omeprazole 10 mg capsule,delayed release 10 mg PO QDAY 08/30/25 [History] promethazine 12.5 mg tablet 12.5 mg PO TID PRN 08/30/25 [History] tramadol 50 mg tablet 50 mg PO TID PRN 08/30/25 [History] Prescriptions: Hospital Course Vital Signs: Vital Signs Temperature 98.3 F Pulse Rate [Left] 78 Respiratory Rate 18 Respiratory Rate 18 Respiratory Rate 18 Respiratory Rate 16 Blood Pressure [Left Arm] 152/76 O2 Sat by Pulse Oximetry 97 Latest Lab Results: Laboratory Last Values WBC 4.7 X10^3/uL (3.6-10.0) 08/31/25 05:15 RBC 3.86 X10^6/uL (3.5-5.4) 08/31/25 05:15 Hgb 10.9 g/dL (12.0-16.0) L 08/31/25 05:15 Hct 33.7 % (36.0-47.0) L 08/31/25 05:15 MCV 87.2 fL (80.0-100.0) 08/31/25 05:15 MCH 28.2 pg (27.0-34.0) 08/31/25 05:15 MCHC 32.3 g/dL (33.0-35.0) L 08/31/25 05:15 RDW 16.1 % (11.6-16.5) 08/31/25 05:15 Plt Count 200 X10^3/uL (150.0-450.0) 08/31/25 05:15 MPV 8.8 fL (7.4-11.0) 08/31/25 05:15 Neut % (Auto) 59.2 % (42.0-75.0) 08/31/25 05:15 Lymph % (Auto) 30.2 % (21.0-51.0) 08/31/25 05:15 [place] % (Auto) 8.2 % (0.0-13.0) 08/31/25 05:15 Eos % (Auto) 1.7 % (0.9-2.9) 08/31/25 05:15 Baso % (Auto) 0.7 % (0.2-1.0) 08/31/25 05:15 Neut # (Auto) 2.8 x10^3/uL (2.2-4.8) 08/31/25 05:15 Lymph # (Auto) 1.4 X10^3/uL (1.3-2.9) 08/31/25 05:15 [place] # (Auto) 0.4 x10^3/uL (0.3-0.8) 08/31/25 05:15 Eos # (Auto) 0.1 x10^3/uL (0.0-0.2) 08/31/25 05:15 Baso # (Auto) 0.0 X10^3/uL (0.0-0.1) 08/31/25 05:15 Absolute Nucleated RBC 0.1 /100WBC 08/31/25 05:15 Sodium 140 mmol/L (136-145) 08/31/25 05:15 Corrected Sodium TNP 08/31/25 05:15 Potassium 3.3 mmol/L (3.5-5.1) L 08/31/25 05:15 Chloride 104 mmol/L (98-107) 08/31/25 05:15 Carbon Dioxide 27.9 mmol/L (21-32) 08/31/25 05:15 BUN 3 mg/dL (7-18) L 08/31/25 05:15 Creatinine 0.45 mg/dL (0.55-1.02) L 08/31/25 05:15 Est GFR (MDRD) Af Amer > 60 (>60) 08/31/25 05:15 Est GFR (MDRD) Non-Af > 60 (>60) 08/31/25 05:15 Glucose 103 mg/dL (65-99) H 08/31/25 05:15 Calcium 8.1 mg/dL (8.5-10.1) L 08/31/25 05:15 Corrected Calcium 9.1 mg/dL (8.5-10.1) 08/31/25 05:15 Magnesium 1.5 mg/dL (2.0-2.9) L 08/31/25 05:15 Total Bilirubin 0.20 mg/dL (0.2-1.0) 08/31/25 05:15 AST 16 Units/L (15-37) 08/31/25 05:15 ALT 14 Units/L (12-78) 08/31/25 05:15 Alkaline Phosphatase 91 Units/L (46-116) 08/31/25 05:15 Total Protein 6.9 g/dL (6.4-8.2) 08/31/25 05:15 Albumin 2.7 g/dL (3.4-5.0) L 08/31/25 05:15 Globulin 4.2 g/dL (2.5-4.5) 08/31/25 05:15 Albumin/Globulin Ratio 0.6 Ratio (1.1-2.1) L 08/31/25 05:15 Amylase 175 Units/L (25-115) H 08/30/25 03:52 Lipase 354 Units/L (16-77) H 08/30/25 06:37 Specimen Type Clean catch urine 08/30/25 03:30 Urine Color Dark yellow (YELLOW) 08/30/25 03:30 Urine Appearance Slightly hazy (CLEAR) 08/30/25 03:30 Urine pH 6.0 (5.0 - 8.0) 08/30/25 03:30 Ur Specific [place] 1.020 (1.000-1.030) 08/30/25 03:30 Urine Protein 3+ (NEGATIVE) 08/30/25 03:30 Urine Glucose (UA) Negative (NEGATIVE) 08/30/25 03:30 Urine Ketones Negative (NEGATIVE) 08/30/25 03:30 Urine Blood 4+ (NEGATIVE) 08/30/25 03:30 Urine Nitrite Negative (NEGATIVE) 08/30/25 03:30 Urine Bilirubin Negative (NEGATIVE) 08/30/25 03:30 Urine Urobilinogen Normal (NORMAL) 08/30/25 03:30 Ur Leukocyte Esterase 1+ (NEGATIVE) 08/30/25 03:30 Urine RBC 5-10 /HPF (0-3) A 08/30/25 03:30 Urine WBC 20-30 /HPF (0-5) A 08/30/25 03:30 Ur Squamous Epith Cells Moderate /HPF (NEGATIVE) 08/30/25 03:30 Urine Bacteria Trace /HPF (NEGATIVE) 08/30/25 03:30 Ur Culture Indicated? Yes/culture set up 08/30/25 03:30 Hospital Course: PE: Well-developed, well-nourished female in no acute distress. Head NCAT, EOMI, hearing grossly normal. Heart regular rate and rhythm. Lungs are clear with strong speech. Belly is less tender, nondistended, soft with bowel sounds present. Moves all extremities equally well. Patient admitted from home through the ER due to acute pancreatitis. She has responded well to a clear liquid, low-fat diet. IV fluids and as needed pain medications have also helped. She is now tolerating a soft diet with no nausea or vomiting. She is also holding down her liquids. UA was abnormal with urine culture growing gram-negative rods greater than 100 K CFU. Her pelvic discomfort has resolved with oral Cipro and we will discharge her to complete a week. She will be discharged home on nausea and pain medications with instructions to follow-up with PCP. She is improved and in stable condition.
[2025-08-31] MEDS: NS 1,000 ML IV 1,000 ML with MAGNESIUM SULFATE 50% INJ VIAL 1 G IV SCH (14:47)
[2025-08-31] MEDS: DUONEB 0.5 MG/3 MG (3 mL) NEB SCH (14:51)
[2025-08-31] MEDS: PULMICORT NEB TX 0.5 MG NEB SCH (14:52)
[2025-08-31 14:59] VITALS: BP 153/81; PULSE 70; O2SAT 98
[2025-08-31] MEDS: NORCO 10/325 TAB PO ONE (15:29)
== END 2025-08-31 15:40 | disposition home or self-care (01) ==
LOC: MED/SURG 02:46 → ER 02:46 → MED/SURG 05:39
PROVIDERS: ADMIT Family Medicine; ATTEND Family Medicine
DX: Z16.29 Resistance to other single specified antibiotic; N20.0 Calculus of kidney; Z16.11 Resistance to penicillins; R10.84 Generalized abdominal pain; R11.2 Nausea with vomiting, unspecified; M19.90 Unspecified osteoarthritis, unspecified site; F41.1 Generalized anxiety disorder; E83.51 Hypocalcemia; E87.6 Hypokalemia; Z16.19 Resistance to other specified beta lactam antibiotics; Z16.12 Extended spectrum beta lactamase (ESBL) resistance; N39.0 Urinary tract infection, site not specified; F17.210 Nicotine dependence, cigarettes, uncomplicated; K21.9 Gastro-esophageal reflux disease without esophagitis; E83.42 Hypomagnesemia; I10 Essential (primary) hypertension; E03.8 Other specified hypothyroidism; K85.00 Idiopathic acute pancreatitis without necrosis or infection; M51.370 Other intervertebral disc degeneration, lumbosacral region with discogenic back pain only